=== PATIENT | male | born 1950 | race Caucasian/White ===

== ENCOUNTER 2017-01-11 07:07 | Day surgery (SDC) | payer MEDICARE ==
[2017-01-09 10:20] VITALS: BMI 23.3
[~2017-01-11 07:07] MED LIST: DEXAMETHASONE SOD PHOSPHATE 10 MG/ML 1 ML VIAL IV ONE; HEPARIN SODIUM,PORCINE 5,000 UNIT/ML 1 ML VIAL SQ ONE; MIDAZOLAM 2 MG/2 ML VIAL IV PRN; ONDANSETRON 4 MG/2 ML VIAL IVP ONE; SCOPOLAMINE 1.5MG/72HR PATCH TRANSDERM ONE; ceFAZolin 2 GM in SODIUM CHLORIDE 0.9% 100 ML IVPB ONE
[2017-01-11 07:32] VITALS: TEMP 98.1
[2017-01-11] MEDS: LACTATED RINGERS 1,000 ML IV SCH (07:57)
[2017-01-11] MEDS ORDERED: LIDOCAINE 1% 20 ML VIAL (10MG/ML) FOR IV START INTRADERMA ONE ×2 (07:58)
[2017-01-11] MEDS ORDERED: ROCURONIUM BROMIDE 10 MG/ML 10 ML VIAL IV ONE (08:07)
[2017-01-11] MEDS ORDERED: GLYCOPYRROLATE 0.2 MG/ML 2 ML VIAL ONE (08:07)
[2017-01-11] MEDS ORDERED: NEOSTIGMINE 1 MG/ML 10 ML VIAL ONE (08:07)
[2017-01-11] MEDS ORDERED: HYDROmorphone (PF) 1 MG/ML ONE (08:07)
[2017-01-11] MEDS ORDERED: ePHEDrine 50 MG/ML 1 ML AMP ONE (08:07)
[2017-01-11] MEDS ORDERED: KETOROLAC 30 MG/ML 1 ML VIAL ONE (08:07)
[2017-01-11] MEDS ORDERED: fentaNYL (PF) 50 MCG/ML 2 ML AMP ONE (08:07)
[2017-01-11] MEDS ORDERED: MIDAZOLAM 2 MG/2 ML VIAL ONE (08:07)
[2017-01-11] MEDS ORDERED: LIDOCAINE 1% INJ 10MG/ML (20 ML MDV) ONE (08:07)
[2017-01-11] MEDS ORDERED: PROPOFOL 10 MG/ML 20 ML VIAL IV ONE (08:07)
--- NOTE | 2017-01-11 08:07 | P.GSHP ---
History of Present Illness H&P Date: 01/11/17 Chief Complaint: Left inguinal hernia This is a 66-year-old male presents today for laparoscopic robotic-assisted repair of left inguinal hernia. Patient has had a left we will hernia for many years. The patient decided to have it repaired. He's had some pain and increased in size. 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81, WITH LEFT SIDED DEFECIT, SPINAL STENOSIS History of Any Multi-Drug Resistant Organisms: None Reported Past Surgical History: Back Surgery Additional Past Surgical History / Comment(s): BRAIN ANEURYSM REPAIR, Past Anesthesia/Blood Transfusion Reactions: No Reported Reaction Past Psychological History: No Psychological Hx Reported Smoking Status: Former smoker Past Alcohol Use History: None Reported Past Drug Use History: None Reported - Past Family History Mother Family Medical History: No Reported History Medications and Allergies Home Medications Medication Instructions Recorded Confirmed Type Pravastatin Sodium [Pravachol] 20 mg PO HS 09/07/16 01/09/17 History amLODIPine [Norvasc] 5 mg PO DAILY 09/07/16 01/09/17 History carBAMazepine [TEGretol] 200 mg PO BID 09/07/16 01/09/17 History Cyclobenzaprine [Flexeril] 10 mg PO QAM 01/09/17 01/09/17 History Benazepril [Lotensin] 10 mg PO DAILY 01/11/17 01/11/17 History Allergies Allergy/AdvReac Type Severity Reaction Status Date / Time No Known Allergies Allergy Verified 01/11/17 07:23 Surgical - Exam Vital Signs Temp Pulse Resp BP Pulse Ox 98.1 F 81 16 153/75 99 01/11/17 07:30 01/11/17 07:30 01/11/17 07:30 01/11/17 07:30 01/11/17 07:30 - General Left hemiplegia well developed, no distress - Eyes PERRL - ENT normal pinna - Neck no masses - Respiratory normal expansion - Cardiovascular Rhythm: regular - Abdomen Left reducible inguinal hernia Abdomen: soft Assessment and Plan Plan: Left angle hernia. We'll perform laparoscopic robotic-assisted repair of left inguinal hernia. Patient is aware of possible bilateral inguinal hernia repair
[2017-01-11] MEDS ORDERED: BUPIVACAIN-EPI 0.25%-1:200,000 30 ML VIAL SQ ONE ×2 (08:57)
--- NOTE | 2017-01-11 09:12 | P.OP ---
Date of Procedure: 01/11/17 Preoperative Diagnosis: Left inguinal hernia Postoperative Diagnosis: Left inguinal hernia Procedure(s) Performed: Robotic right inguinal hernia Anesthesia: GEORGI Surgeon: Neno Irby Estimated Blood Loss (ml): 5 Pathology: none sent Condition: stable Disposition: PACU Description of Procedure: The patient's placed on the operating table in the supine position. The patient received general anesthesia. The patient's abdomen was prepped and draped in usual sterile fashion. The skin was anesthetized 1% local Xylocaine at the incision sites. Using an 11 blade a skin incision was made at the umbilicus. The fascia was grasped with a Morris and then the peritoneal cavity was entered with the Veress needle. Position of the Veress needle was confirmed with a positive drop test. After adequate insufflation a 5 mm trocar was placed into the peritoneal cavity. The Laparoscope was placed the peritoneal cavity. And a robotic 8 mm trocar was placed in the right lateral position and then another 8 mm robotic trochars placed in the left lateral position. The original 5 mm trocar was exchanged for a 12 mm trocar. The patient was placed in reverse Trendelenburg and then the patient was docked to the robot. Next the peritoneum over top of the hernia was incised and then using blunt and sharp dissection and electrocautery the hernia sac was dissected free from the floor of the inguinal canal. The hernia sac was completely reduced into the peritoneal cavity. And then using the Pro annealer helper mesh the hernia was repaired. The peritoneum was then sutured with 20V lock suture. The patient was then undocked the robot. The needle was withdrawn from the peritoneal cavity. The umbilical trocar site was closed with 0 Ethibond suture. The skin was closed interrupted 3-0 Monocryl suture. Dermabond dressing was applied. Patient was sent to recovery in stable condition.
[2017-01-11] MEDS: HYDROmorphone 1 MG/ML 1 ML SYRINGE IVP PRN ×2 (09:44→10:03)
[2017-01-11 09:48] VITALS: RESP 18
[2017-01-11 11:23] VITALS: BP 130/61; PULSE 70
[2017-01-11] MEDS ORDERED: HYDROcodone/APAP 7.5-325MG 1 EACH TAB PO ONE (11:27)
[2017-01-11] MEDS ORDERED: LACTATED RINGERS 1,000 ML IV ONE (11:30)
== END 2017-01-11 13:05 | disposition home or self-care (01) ==
LOC: OR 07:07
PROVIDERS: ATTEND Surgery
DX: K40.90 Unilateral inguinal hernia, without obstruction or gangrene, not specified as recurrent (principal); I10 Essential (primary) hypertension; E78.5 Hyperlipidemia, unspecified; G81.14 Spastic hemiplegia affecting left nondominant side; Z79.899 Other long term (current) drug therapy; Z87.891 Personal history of nicotine dependence
CPT/HCPCS: 49650; C1781; J2250; J1644; J1100; J2710; J0690; J2405; J2001; J3010; J1885; J1170; J2704

== ENCOUNTER → 2018-06-20 | Outpatient (CLI) | payer MEDICARE ==
[2018-06-21 15:19] LABS: Egg Yolk IgE Class CLASS 0; Gluten IgE Class CLASS 0; Oat IgE Class CLASS 0; Yeast Bakers/Brew IgE <0.35 kU/L (<0.35)
[2018-06-21 15:20] LABS: Chicken IgE Class CLASS 0
[2018-06-21 15:21] LABS: Chocolate IgE Class CLASS 0; Latex IgE Class CLASS 0
[2018-06-21 15:22] LABS: Avocado Class CLASS 0; Banana IgE Class CLASS 0; Cow's Milk IgE Class CLASS 0; Egg White IgE <0.35 kU/L (<0.35); Hazelnut IgE <0.35 kU/L (<0.35); Hazelnut IgE Class CLASS 0; Kiwi IgE <0.35 kU/L (<0.35); Peanut IgE <0.35 kU/L (<0.35); Potato IgE <0.35 kU/L (<0.35); Potato IgE Class CLASS 0; Soybean IgE <0.35 kU/L (<0.35)
== END | disposition home or self-care (01) ==
LOC: LABWHC1 13:49
PROVIDERS: ATTEND Otolaryngology
DX: L50.0 Allergic urticaria (principal); J30.89 Other allergic rhinitis; B44.89 Other forms of aspergillosis
CPT/HCPCS: 36415; 86003

== ENCOUNTER 2019-07-16 10:25 | Inpatient (IN) | payer MEDICARE ==
[2019-07-16] MEDS ORDERED: MORPHINE SULFATE 4 MG/ML SYRINGE IV STA (12:13)
[2019-07-16] MEDS ORDERED: SODIUM CHLORIDE 0.9% 1,000 ML IV STA (12:13)
[2019-07-16] MEDS ORDERED: DEXAMETHASONE SOD PHOSPHATE 10 MG/ML 1 ML VIAL IV STA (12:14)
--- NOTE | 2019-07-16 12:41 | ED ---
Back Pain HPI - General Chief Complaint: Back Pain/Injury Stated Complaint: BACK PAIN Time Seen by Provider: 07/16/19 11:13 Source: patient, RN notes reviewed, old records reviewed Limitations: no limitations - History of Present Illness Initial Comments: This is a 66-year-old male the ER for evaluation. Patient coming with multiple nonspecific complaints. Patient's only medical history significant for aneurysm. Patient has pain throughout his body back pain. Pain leg pain. Shoulder pain right hip pain especially much with more pain with movement. Patient denies injuries. Symptoms are going on for a week he is having fevers and chills at night. Patient is activity level has diminished he's been sleeping much more. Patient has history of chronic back pain but this is much worse. Patient's been taking Motrin with no help MD Complaint: back pain, back injury, other (Shoulder pain and multiple joint pains, muscle pain) -: hour(s) Similar Symptoms Previously: Yes Place: home Radiation: none Severity: moderate Severity scale (1-10): 4 Quality: dull, aching, tingling Consistency: constant Improves With: none Worsens With: movement, walking Context: while lifting, turning/twisting Associated Symptoms: fever/chills Treatments Prior to Arrival: NSAIDS - Related Data Home Medications Medication Instructions Recorded Confirmed Pravastatin Sodium [Pravachol] 20 mg PO HS 09/07/16 07/16/19 amLODIPine [Norvasc] 5 mg PO DAILY 09/07/16 07/16/19 carBAMazepine [TEGretol] 200 mg PO BID 09/07/16 07/16/19 Benazepril [Lotensin] 10 mg PO DAILY 01/11/17 07/16/19 Ibuprofen [Motrin] 800 mg PO Q6H PRN 07/16/19 07/16/19 Allergies Allergy/AdvReac Type Severity Reaction Status Date / Time No Known Allergies Allergy Verified 07/16/19 11:16 Review of Systems ROS Statement: Those systems with pertinent positive or pertinent negative responses have been documented in the HPI. ROS Other: All systems not noted in ROS Statement are negative. 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81, WITH LEFT SIDED DEFECIT, SPINAL STENOSIS History of Any Multi-Drug Resistant Organisms: None Reported Past Surgical History: Back Surgery Additional Past Surgical History / Comment(s): BRAIN ANEURYSM REPAIR, Past Anesthesia/Blood Transfusion Reactions: No Reported Reaction Past Psychological History: No Psychological Hx Reported Smoking Status: Former smoker Past Alcohol Use History: None Reported Past Drug Use History: None Reported - Past Family History Mother Family Medical History: No Reported History General Exam Limitations: no limitations General appearance: alert, in no apparent distress Head exam: Present: atraumatic, normocephalic, normal inspection Eye exam: Present: normal appearance, EOMI. Absent: scleral icterus, conjunctival injection, periorbital swelling ENT exam: Present: normal exam, mucous membranes moist Neck exam: Present: normal inspection. Absent: tenderness, meningismus, lymph adenopathy Respiratory exam: Present: normal lung sounds bilaterally. Absent: respiratory distress, wheezes, rales, rhonchi, stridor Cardiovascular Exam: Present: regular rate, normal rhythm, normal heart sounds. Absent: systolic murmur, diastolic murmur, rubs, gallop, clicks GI/Abdominal exam: Present: soft, normal bowel sounds. Absent: distended, tenderness, guarding, rebound, rigid Extremities exam: Present: normal inspection, full ROM, normal capillary refill. Absent: tenderness, pedal edema, joint swelling, calf tenderness Back exam: Present: normal inspection Neurological exam: Present: alert, oriented X3, CN II-XII intact Psychiatric exam: Present: normal affect, normal mood Skin exam: Present: warm, dry, intact, normal color. Absent: rash Course Vital Signs 07/16/19 10:39 Temperature 97.9 F Pulse Rate 74 Respiratory 18 Rate Blood Pressure 118/52 O2 Sat by Pulse 100 Oximetry - Reevaluation(s) Reevaluation #1: 07/16/19 12:41 Medical records reviewed Reevaluation #2: 07/16/19 12:41 Pain is improved - Consultations Consultation #1: Spoke with Dr. Martinez regarding admission, he is agreeable Medical Decision Making - Medical Decision Making 66 male the ER with complaints of severe pain body pain body aches and pains chills. Patient has elevated white count and an X-ray pneumonia versus new Cancer/mass. Patient be admitted for pain control and treatment of underlying infection - Lab Data Result diagrams: 07/16/19 13:10 07/16/19 13:10 Lab Results 07/16/19 07/16/19 07/16/19 Range/Units 13:10 13:10 13:10 WBC 19.2 H (3.8-10.6) k/uL RBC 3.50 L (4.30-5.90) m/uL Hgb 11.7 L (13.0-17.5) gm/dL Hct 34.5 L (39.0-53.0) % MCV 98.6 (80.0-100.0) fL MCH 33.5 (25.0-35.0) pg MCHC 33.9 (31.0-37.0) g/dL RDW 13.1 (11.5-15.5) % Plt Count 244 (150-450) k/uL Neutrophils % 89 % Lymphocytes % 4 % Monocytes % 4 % Eosinophils % 0 % Basophils % 0 % Neutrophils # 17.1 H (1.3-7.7) k/uL Lymphocytes # 0.8 L (1.0-4.8) k/uL Monocytes # 0.8 (0-1.0) k/uL Eosinophils # 0.1 (0-0.7) k/uL Basophils # 0.1 (0-0.2) k/uL Sodium 138 (137-145) mmol/L Potassium 3.9 (3.5-5.1) mmol/L Chloride 100 (98-107) mmol/L Carbon Dioxide 25 (22-30) mmol/L Anion Gap 13 mmol/L BUN 28 H (9-20) mg/dL Creatinine 1.09 (0.66-1.25) mg/dL Est GFR (CKD-EPI)AfAm 80 (>60 ml/min/1.73 sqM) Est GFR (CKD-EPI)NonAf 69 (>60 ml/min/1.73 sqM) Glucose 123 H (74-99) mg/dL Calcium 8.7 (8.4-10.2) mg/dL Phosphorus 4.1 (2.5-4.5) mg/dL Magnesium 2.2 (1.6-2.3) mg/dL Total Bilirubin 0.5 (0.2-1.3) mg/dL AST 34 (17-59) U/L ALT 56 (21-72) U/L Alkaline Phosphatase 114 (38-126) U/L Creatine Kinase 135 (55-170) U/L Troponin I <0.012 (0.000-0.034) ng/mL Total Protein 7.4 (6.3-8.2) g/dL Albumin 3.7 (3.5-5.0) g/dL - EKG Data -: EKG Interpreted by Me (EKG shows sinus rhythm rate of 71, OR 160, QRS 82, QTc 406) Disposition Clinical Impression: Mechanical back pain, Strain of lumbar region, Myalgia, Leukocytosis, Lung mass, Pneumonia, community acquired Disposition: ADMITTED IP TO THIS HOSP Condition: Fair Is patient prescribed a controlled substance at d/c from ED?: No Referrals: Rohan Martinez DO [Primary Care Provider] - 1-2 days
--- NOTE | 2019-07-16 13:12 | CT ---
EXAMINATION TYPE: CT abdomen pelvis wo con DATE OF EXAM: 07/16/2019 COMPARISON: None HISTORY: 68-year-old male Lumbar-sacral pain CT DLP: 500.6 mGycm. Automated exposure control for dose reduction was used. TECHNIQUE: Contiguous axial scanning of the abdomen and pelvis without IV contrast. Coronal and sagit otoniel reconstructions performed. FINDINGS: Heart upper limits of normal in size without pericardial effusion. Coronary vessel calcifications are present. Patchy subpleural densities at both lower lungs probably atelectasis. No pleural effusion. Small hiatal hernia. Noncontrast appearance of the liver, adrenal glands, left kidney, and pancreas shows no gross abnorma lity. Punctate 2 mm nonobstructive right renal calculus. Calcified granuloma within the spleen. Lack of contrast, paucity of intra-abdominal fat, artifact from patient's left arm being down, and pr ominent metal hardware artifact from the patient's lumbar fusion hardware all limit the evaluation. No dilated small bowel, free fluid, or free air. Scattered moderate atherosclerotic calcifications abdominal aorta. Normal caliber appendix noted. There is moderate overall stool though sparing the redundant sigmoid colon. Bladder is distended. Prostate gland measures 5.9 cm. No abnormal fluid collection in the pelvis. Bones: Extensive osteopenia. Scattered synovial calcifications on both sides. Possible erosion extending into the lateral right il iac bone above the acetabulum with associated calcification, reference axial image 109 and coronal im age 50. L3-S1 posterior fusion. Fixed grade 1 anterolisthesis L4-L5. Mild superior end plate deformity of L1 is age indeterminate and should be correlated for focal pain at this level. Refer to sagittal image 53. Disc osteophyte complex at L1-L2 mildly narrows the spinal the canal. [facility] within the visualized lower thoracic spine. IMPRESSION: 1. Prior L3-S1 posterior fusion. There is mild superior endplate deformity of L1 which is age indete rminate. Correlate for any pain at this level. No retropulsion into the spinal canal. 2. Degenerative change in both hips with synovial calcifications. There is apparent erosive change w hich extends up to the lateral right iliac bone just above the acetabulum. Correlate for a history of gout in this patient. MRI can be considered. 3. Lack of contrast, paucity of intra-abdominal fat, artifact from the patient's left arm being down , and prominent metal hardware artifact from lumbar fusion all limit evaluation. 4. Moderate stool, prostatomegaly (5.9 cm wide), and punctate 2 mm nonobstructive right renal calcul us. Small hiatal hernia.
--- NOTE | 2019-07-16 13:19 | XR ---
EXAMINATION TYPE: XR chest 2V DATE OF EXAM: 07/16/2019 COMPARISON: NONE HISTORY: Weakness, history of stroke TECHNIQUE: Frontal and lateral views of the chest are obtained. FINDINGS: There is asymmetric increased attenuation superimposing the anterior first rib on the righ t as compared to left. No pneumothorax or pleural effusion. Patient is rotated. Heart size may be acc entuated by technique. Spondylosis noted in the visualized spine. IMPRESSION: Possible right upper lobe lung mass, follow-up recommended. Report relayed to Dr. Mg zimmerman telephonically at the time of interpretation at exam.
[2019-07-16 13:22] LABS: Basophils # (A) 0.1 k/uL (0-0.2); Basophils % (A) 0 %; Eosinophils # (A) 0.1 k/uL (0-0.7); Eosinophils % (A) 0 %; HCT 34.5 % (39.0-53.0); HGB 11.7 gm/dL (13.0-17.5); Lymphocytes # (A) 0.8 k/uL (1.0-4.8); Lymphocytes % (A) 4 %; MCH 33.5 pg (25.0-35.0); MCHC 33.9 g/dL (31.0-37.0); MCV 98.6 fL (80.0-100.0); Mean Platelet Volume 6.6; Monocytes # (A) 0.8 k/uL (0-1.0); Monocytes % (A) 4 %; Neutrophils # (A) 17.1 k/uL (1.3-7.7); Neutrophils % (A) 89 %; Platelet Count 244 k/uL (150-450); RDW 13.1 % (11.5-15.5); WBC 19.2 k/uL (3.8-10.6)
[2019-07-16 13:33] LABS: Albumin 3.7 g/dL (3.5-5.0); Calcium 8.7 mg/dL (8.4-10.2); Magnesium 2.2 mg/dL (1.6-2.3); Phosphorus 4.1 mg/dL (2.5-4.5); Potassium 3.9 mmol/L (3.5-5.1); Total Bilirubin 0.5 mg/dL (0.2-1.3); Total Protein 7.4 g/dL (6.3-8.2)
[2019-07-16] MEDS ORDERED: DIAZEPAM 5 MG/ML 2 ML INJ IVP STA (14:23)
[2019-07-16] MEDS ORDERED: KETOROLAC 30 MG/ML 1 ML VIAL IVP STA (14:23)
[2019-07-16] MEDS ORDERED: HYDROmorphone 1 MG/ML 1 ML SYRINGE IVP STA (14:23)
[2019-07-16] MEDS ORDERED: AZITHROMYCIN 500 MG in SODIUM CHLORIDE 0.9% 250 ML IVPB STA (14:23)
[2019-07-16] MEDS ORDERED: PNEUMONIA PROTOCOL UTILIZED 1 EACH MISC PO PRN (14:23)
[2019-07-16] MEDS ORDERED: IPRATROPIUM-ALBUTEROL 3 ML NEB INHALATION PRN (14:23)
[2019-07-16 14:30] LABS: Appearance,Urine Cloudy (Clear); Bilirubin,Urine Negative (Negative); Blood,Urine Trace (Negative); Cellular Casts,Urine 19 /lpf (0); Color,Urine Yellow; Glucose,Urine (UA) Negative (Negative); Granular Casts,Urine 1 /lpf (0); Hyaline Casts,Urine 7 /lpf (0-2); Ketones,Urine Negative (Negative); Leukocyte Esterase,Urine Trace (Negative); Mucus,Urine Rare /hpf; Nitrite,Urine Negative (Negative); PH, Urine 5.5 (5.0-8.0); Protein,Urine 1+ (Negative); RBC,Urine 1 /hpf (0-5); Squamous Epithelial Cell,Urine <1 /hpf (0-4); Urobilinogen,Urine <2.0 mg/dL (<2.0); WBC,Urine 13 /hpf (0-5)
[2019-07-16] MEDS: SODIUM CHLORIDE 0.9% 1,000 ML IV SCH ×2 (14:52→23:04)
[2019-07-16] MEDS: amLODIPine 5 MG TAB PO SCH (17:22)
[2019-07-16] MEDS: LISINOPRIL 10 MG TAB PO SCH (17:22)
[2019-07-16] MEDS: HYDROmorphone 1 MG/ML 1 ML SYRINGE IVP PRN ×2 (18:24→21:49)
[2019-07-16] MEDS: PRAVASTATIN SODIUM 20 MG TAB PO SCH (21:48)
[2019-07-16] MEDS: carBAMazepine 200 MG TAB PO SCH (21:48)
[2019-07-16] MEDS: DIAZEPAM 5 MG/ML 2 ML INJ IVP PRN (21:50)
[2019-07-17] MEDS: HYDROmorphone 1 MG/ML 1 ML SYRINGE IVP PRN ×2 (01:48→07:16)
[2019-07-17] MEDS: DIAZEPAM 5 MG/ML 2 ML INJ IVP PRN (05:34)
[2019-07-17] MEDS: LISINOPRIL 10 MG TAB PO SCH (07:17)
[2019-07-17] MEDS: carBAMazepine 200 MG TAB PO SCH ×2 (07:18→20:41)
[2019-07-17] MEDS: ENOXAPARIN 40 MG/0.4 ML SYRINGE SQ SCH (07:18)
[2019-07-17] MEDS: amLODIPine 5 MG TAB PO SCH (07:18)
--- NOTE | 2019-07-17 09:22 | P.CONS ---
History of Present Illness - Reason for Consult Consult date: 07/17/19 Positive blood culture - History of Present Illness This is a 68-year-old male who presented to the hospital with generalized body aches especially to the shoulder and back area along with back pain right hip pain increasing with activity. He has also had fevers and chills at night for the past week. Patient is normally very independent and active and this is a big change for him. related to the nurse that he has also had significant weight loss without any attempt and still seems to have a good appe tite. Patient is unable to provide significant history and has received Valium, Dilaudid and morphine which could be contributing to his mental status change. He is able to state that this is not my normal. Patient came into [facility] emergency center found to have low-grade fever 100.5 with tachycardia, leukocytosis 19.2, hemoglobin 11.7 and platelet count 244. He is BUN 28, creatinine 1.09, albumin 3.7, urinalysis cloudy, leukoesterase trace, WBC 13. Influenza testing negative. Blood cultures positive for gram-positive cocci in clusters. CAT scan of the abdomen and pelvis without contrast reveals prior L3 S1 posterior fusion. Mild endplate deformity of L1. Degenerative changes in both hips and synovial calcifications. Erosive change in the lateral right iliac bone above acetabulum possible history of gout. Limited abdominal evaluation due to lack of contrast. Moderate stool, 2 mm nonobstructive right renal calculus, small hiatal hernia. Chest x-ray reveals a possible right upper lobe lung mass. Patient is status post 1 L of IV fluid, Rocephin, azithromycin, Decadron, Valium Dilaudid and Toradol and morphine in the emergency center. A sputum is on collected. Blood culture is gram-positive cocci in clusters. 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 Past Drug Use History: None Reported - Past Family History Mother Family Medical History: No Reported History Medications and Allergies Home Medications Medication Instructions Recorded Confirmed Type Pravastatin Sodium [Pravachol] 20 mg PO HS 09/07/16 07/16/19 History amLODIPine [Norvasc] 5 mg PO DAILY 09/07/16 07/16/19 History carBAMazepine [TEGretol] 200 mg PO BID 09/07/16 07/16/19 History Benazepril [Lotensin] 10 mg PO DAILY 01/11/17 07/16/19 History Ibuprofen [Motrin] 800 mg PO Q6H PRN 07/16/19 07/16/19 History Allergies Allergy/AdvReac Type Severity Reaction Status Date / Time No Known Allergies Allergy Verified 07/16/19 11:16 Physical Exam Vitals: Vital Signs Temp Pulse Pulse Resp BP BP Pulse Ox 07/17/19 07:07 99 07/17/19 07:00 99.5 F 107 H 16 166/70 94 L 07/16/19 22:16 16 07/16/19 21:00 100.5 F H 105 H 20 160/72 07/16/19 16:05 98.0 F 75 16 132/65 99 07/16/19 15:30 80 16 138/75 98 07/16/19 10:39 97.9 F 74 18 118/52 100 Intake and Output 07/16/19 07/17/19 07/17/19 22:59 06:59 14:59 Intake Total 400 200 Balance 400 200 Intake: Oral 400 200 Other: # Voids 3 2 Gen: This is a thin cachectic appearing 68-year-old male. Patient is sitting up in bed and appears to be in no acute distress. No respiratory distress noted. HEENT: Head is atraumatic, normocephalic. Pupils equal, round. Sclerae is anicteric. Oral mucous membranes are extremely dry. Dentition is in fair order for age. NECK: Supple. No JVD. No lymphadenopathy. No thyromegaly. LUNGS: Clear to auscultation. No wheezes or rhonchi. No intercostal retractions. HEART: Regular rate and rhythm. No murmur. ABDOMEN: Flat Soft. Bowel sounds are present. No masses. No tenderness. EXTREMITIES: No pedal edema. No calf tenderness. Foot drop on the left. Dorsalis pedis +2 on the right, +1 on the left. Contracture of the left upper extremity. Straight leg raise negative bilaterally. NEUROLOGICAL: Patient is awake and oriented to person and place. Cranial nerves 2 through 12 are grossly intact. Patient is able to follow directions. He is unable to give reliable history. Results Results: Laboratory Results WBC 19.2 k/uL (3.8-10.6) H 07/16/19 13:10 RBC 3.50 m/uL (4.30-5.90) L 07/16/19 13:10 Hgb 11.7 gm/dL (13.0-17.5) L 07/16/19 13:10 Hct 34.5 % (39.0-53.0) L 07/16/19 13:10 MCV 98.6 fL (80.0-100.0) 07/16/19 13:10 MCH 33.5 pg (25.0-35.0) 07/16/19 13:10 MCHC 33.9 g/dL (31.0-37.0) 07/16/19 13:10 RDW 13.1 % (11.5-15.5) 07/16/19 13:10 Plt Count 244 k/uL (150-450) 07/16/19 13:10 Neutrophils % 89 % 07/16/19 13:10 Lymphocytes % 4 % 07/16/19 13:10 Monocytes % 4 % 07/16/19 13:10 Eosinophils % 0 % 07/16/19 13:10 Basophils % 0 % 07/16/19 13:10 Neutrophils # 17.1 k/uL (1.3-7.7) H 07/16/19 13:10 Lymphocytes # 0.8 k/uL (1.0-4.8) L 07/16/19 13:10 Monocytes # 0.8 k/uL (0-1.0) 07/16/19 13:10 Eosinophils # 0.1 k/uL (0-0.7) 07/16/19 13:10 Basophils # 0.1 k/uL (0-0.2) 07/16/19 13:10 Sodium 138 mmol/L (137-145) 07/16/19 13:10 Potassium 3.9 mmol/L (3.5-5.1) 07/16/19 13:10 Chloride 100 mmol/L (98-107) 07/16/19 13:10 Carbon Dioxide 25 mmol/L (22-30) 07/16/19 13:10 Anion Gap 13 mmol/L 07/16/19 13:10 BUN 28 mg/dL (9-20) H 07/16/19 13:10 Creatinine 1.09 mg/dL (0.66-1.25) 07/16/19 13:10 Est GFR (CKD-EPI)AfAm 80 (>60 ml/min/1.73 sqM) 07/16/19 13:10 Est GFR (CKD-EPI)NonAf 69 (>60 ml/min/1.73 sqM) 07/16/19 13:10 Glucose 123 mg/dL (74-99) H 07/16/19 13:10 Calcium 8.7 mg/dL (8.4-10.2) 07/16/19 13:10 Phosphorus 4.1 mg/dL (2.5-4.5) 07/16/19 13:10 Magnesium 2.2 mg/dL (1.6-2.3) 07/16/19 13:10 Total Bilirubin 0.5 mg/dL (0.2-1.3) 07/16/19 13:10 AST 34 U/L (17-59) 07/16/19 13:10 ALT 56 U/L (21-72) 07/16/19 13:10 Alkaline Phosphatase 114 U/L (38-126) 07/16/19 13:10 Creatine Kinase 135 U/L (55-170) 07/16/19 13:10 Troponin I <0.012 ng/mL (0.000-0.034) 07/16/19 13:10 Total Protein 7.4 g/dL (6.3-8.2) 07/16/19 13:10 Albumin 3.7 g/dL (3.5-5.0) 07/16/19 13:10 Urine Color Yellow 07/16/19 14:00 Urine Appearance Cloudy (Clear) 07/16/19 14:00 Urine pH 5.5 (5.0-8.0) 07/16/19 14:00 Ur Specific [place] 1.020 (1.001-1.035) 07/16/19 14:00 Urine Protein 1+ (Negative) H 07/16/19 14:00 Urine Glucose (UA) Negative (Negative) 07/16/19 14:00 Urine Ketones Negative (Negative) 07/16/19 14:00 Urine Blood Trace (Negative) H 07/16/19 14:00 Urine Nitrite Negative (Negative) 07/16/19 14:00 Urine Bilirubin Negative (Negative) 07/16/19 14:00 Urine Urobilinogen <2.0 mg/dL (<2.0) 07/16/19 14:00 Ur Leukocyte Esterase Trace (Negative) H 07/16/19 14:00 Urine RBC 1 /hpf (0-5) 07/16/19 14:00 Urine WBC 13 /hpf (0-5) H 07/16/19 14:00 Ur Squamous Epith Cells <1 /hpf (0-4) 07/16/19 14:00 Cellular Casts 19 /lpf (0) 07/16/19 14:00 Hyaline Casts 7 /lpf (0-2) H 07/16/19 14:00 Granular Casts 1 /lpf (0) 07/16/19 14:00 Urine Mucus Rare /hpf (None) H 07/16/19 14:00 Influenza Type A RNA Not Detected (Not Detectd) 07/16/19 14:12 Influenza Type B (PCR) Not Detected (Not Detectd) 07/16/19 14:12 CBC & Chem 7: 07/16/19 13:10 07/16/19 13:10 Labs: Abnormal Lab Results - Last 24 Hours (Table) 07/16/19 07/16/19 07/16/19 Range/Units 13:10 13:10 14:00 WBC 19.2 H (3.8-10.6) k/uL RBC 3.50 L (4.30-5.90) m/uL Hgb 11.7 L (13.0-17.5) gm/dL Hct 34.5 L (39.0-53.0) % Neutrophils # 17.1 H (1.3-7.7) k/uL Lymphocytes # 0.8 L (1.0-4.8) k/uL BUN 28 H (9-20) mg/dL Glucose 123 H (74-99) mg/dL Urine Protein 1+ H (Negative) Urine Blood Trace H (Negative) Ur Leukocyte Esterase Trace H (Negative) Urine WBC 13 H (0-5) /hpf Hyaline Casts 7 H (0-2) /lpf Urine Mucus Rare H (None) /hpf Microbiology - Last 24 Hours (Table) 07/16/19 15:14 Blood Culture Gram Stain - Preliminary Blood 07/16/19 15:14 Blood Culture - Final Blood Assessment and Plan Plan: This is a 68-year-old male who presented to the hospital with complaints of generalized body aches and pains most significant in the shoulder and back area. He is known to have chronic back problems with this is much more severe with lower extremity weakness. He does have history of a brain aneurysm in the 1980s with residual left arm contracture, left upper and lower weakness. Patient presents with signs of sepsis with tachycardia, fever, leukocytosis possibly related to pneumonia. There is concern of a lung mass found on chest x-ray. Patient will be started on Levaquin. Blood culture is showing gram- positive cocci in clusters which may be a contamination. Repeat blood cultures will be obtained. Toradol ordered for pain control and pulmonary consult added. Dietitian consult will be added for her severe protein calorie malnutrition. There is a speech evaluation in place for evaluation of aspiration. Continue supportive care. Further recommendations as patient progresses. The above dictated assessment and findings were discussed with Dr. Sanchez. The impression and plan of care have been directed as dictated. Gabriella Ty nurse practitioner acting as scribe for Dr. Sanchez.
[2019-07-17] MEDS: LEVOFLOXACIN 750 MG TAB PO SCH (10:31)
[2019-07-17] MEDS: KETOROLAC 30 MG/ML 1 ML VIAL IVP PRN ×2 (10:31→16:11)
[2019-07-17] MEDS: SODIUM CHLORIDE 0.9% 1,000 ML IV SCH ×2 (10:36→23:48)
--- NOTE | 2019-07-17 11:11 | P.HPIM ---
History of Present Illness H&P Date: 07/17/19 Chief Complaint: Increasing weakness, pain This is 68-year-old gentleman with history of hyperlipidemia, hypertension, brain aneurysm, CVA with residual left-sided deficits, former smoker presented to the ER with complaints of worsening right shoulder, back and right hip pain, increasing weakness over the last week, increased by activity, unrelieved with Motrin. Vague historian, obtaining information from chart, staff as well. Also patient is very hard of hearing, does not currently have his hearing aid. Nurse reports patient's baseline is normally very active. reported significant weight loss though patient has a good appetite .Denies cough, denies congestion. Abdominal/pelvis CT reporting calcified granuloma within the spleen, moderate stool, distended bladder, prostate gland measuring 5.9 cm, Extensive osteopenia, scattered synovial calcifications both sides with possible erosion extending into the lateral right iliac bone, mild superior endplate deformity of L1-H undetermined, nonobstructive renal calculus, small hiatal hernia. T-max 100.5, WBC 19.2. Blood cultures reporting gram-positive cocci in clusters. Sputum culture pending. Hemoglobin 11.7, platelets 244, BUN 28, creatinine 1.09- baseline 0.7. Albumin 3.7 .Influenza tested negative. UA cloudy, reporting hyaline cast of 7, WBC 13, trace leukocytes, 1+ protein. Chest x-ray reporting possible right upper lobe lung mass. EKG reporting normal sinus rhythm, troponins negative 1. Received IV fluids, IV antibiotics of Rocephin, azithromycin, Decadron. Throughout the night received Valium, Dilaudid, Toradol and morphine. Review of Systems Review of systems, Limited secondary to patient's current mental state, hard of hearing. ROS Statement: Those systems with pertinent positive or pertinent negative responses have been documented in the HPI. ROS Other: All systems not noted in ROS Statement are negative. 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, SPINAL STENOSIS History of Any Multi-Drug Resistant Organisms: None Reported Past Surgical History: Back Surgery Additional Past Surgical History / Comment(s): BRAIN ANEURYSM REPAIR, Past Anesthesia/Blood Transfusion Reactions: No Reported Reaction Past Psychological History: No Psychological Hx Reported Smoking Status: Former smoker Past Alcohol Use History: None Reported Additional Past Alcohol Use History / Comment(s): Unable to obtain details. Past Drug Use History: None Reported - Past Family History Mother Family Medical History: No Reported History Medications and Allergies Home Medications Medication Instructions Recorded Confirmed Type Pravastatin Sodium [Pravachol] 20 mg PO HS 09/07/16 07/16/19 History amLODIPine [Norvasc] 5 mg PO DAILY 09/07/16 07/16/19 History carBAMazepine [TEGretol] 200 mg PO BID 09/07/16 07/16/19 History Benazepril [Lotensin] 10 mg PO DAILY 01/11/17 07/16/19 History Ibuprofen [Motrin] 800 mg PO Q6H PRN 07/16/19 07/16/19 History Allergies Allergy/AdvReac Type Severity Reaction Status Date / Time No Known Allergies Allergy Verified 07/16/19 11:16 Physical Exam Vitals: Vital Signs Temp Pulse Pulse Resp BP BP Pulse Ox 07/17/19 07:07 99 07/17/19 07:00 99.5 F 107 H 16 166/70 94 L 07/16/19 22:16 16 07/16/19 21:00 100.5 F H 105 H 20 160/72 07/16/19 16:05 98.0 F 75 16 132/65 99 07/16/19 15:30 80 16 138/75 98 07/16/19 10:39 97.9 F 74 18 118/52 100 Intake and Output 07/16/19 07/17/19 07/17/19 22:59 06:59 14:59 Intake Total 400 200 Balance 400 200 Intake: Oral 400 200 Other: # Voids 3 2 PHYSICAL EXAM: VITAL SIGNS: As above GENERAL: Sitting up in bed, appears uncomfortable, states he's "stuck in a hole", somewhat sedated, speech mildly slurred HEENT: Conjunctivae normal. eyes normal. Oral mucosa more NECK: No JVD. No thyroid enlargement. No LNs CARDIOVASCULAR: S1, S2 regular. Tachycardic, No murmur RESPIRATION: Breath sounds diminished in the bases. No rhonchi or crackles. No bronchial breathing. ABDOMEN: Soft, nontender . No guarding. no masses palpable. No ascites, No hepatosplenomegaly.Bowel sounds heard. LEGS: No edema. no swelling PSYCHIATRY: Alert and oriented X3, mood and affect normal. NERVOUS SYSTEM: Cranial N 2-12 grossly normal. Left arm contracted, left leg rigid, left foot drop-prior CVA Skin: no lesions, no rash Joints: No active swelling. No inflammation. Lymphatic system. No LN neck axilla or groin. Microbiology 07/16/19 15:14 Blood Blood Culture Gram Stain - Preliminary 07/16/19 15:14 Blood Blood Culture - Final Results CBC & Chem 7: 07/16/19 13:10 07/16/19 13:10 Labs: Abnormal Lab Results - Last 24 Hours (Table) 07/16/19 07/16/19 07/16/19 Range/Units 13:10 13:10 14:00 WBC 19.2 H (3.8-10.6) k/uL RBC 3.50 L (4.30-5.90) m/uL Hgb 11.7 L (13.0-17.5) gm/dL Hct 34.5 L (39.0-53.0) % Neutrophils # 17.1 H (1.3-7.7) k/uL Lymphocytes # 0.8 L (1.0-4.8) k/uL BUN 28 H (9-20) mg/dL Glucose 123 H (74-99) mg/dL Urine Protein 1+ H (Negative) Urine Blood Trace H (Negative) Ur Leukocyte Esterase Trace H (Negative) Urine WBC 13 H (0-5) /hpf Hyaline Casts 7 H (0-2) /lpf Urine Mucus Rare H (None) /hpf Microbiology - Last 24 Hours (Table) 07/16/19 15:14 Blood Culture Gram Stain - Preliminary Blood 07/16/19 15:14 Blood Culture - Final Blood Thrombosis Risk Factor Assmnt - Choose All That Apply Each Risk Factor Represents 2 Points: Age 61-74 years, Patient confined to bed Thrombosis Risk Factor Assessment Total Risk Factor Score: 4 Thrombosis Risk Factor Assessment Level: Moderate Risk Assessment and Plan Assessment: -Sepsis secondary to Possible right upper lobe pneumonia, community-acquired, rule out aspiration, possible lung mass per chest x-ray. -Bacteremia, gram-positive cocci in clusters, possibly contaminant -Pain, chronic of right shoulder and lower back, history of back surgery -Moderate stool per CT -Prostatomegaly, 5.9 cm, PSA ordered -Degenerative changes bilateral hips with mild endplate deformity of L1, erosive change right iliac bone. 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 Antibiotics of Levaquin initiated for positive blood cultures, r epeat blood cultures ordered. Infectious disease consulted with recommendations noted and appreciated. Speech therapy consulted for swallow evaluation, ruling out aspiration. PT/OT, social work consulted for potential rehab. Please have family bring in hearing aid. PSA ordered secondary to enlarged prostate per CT, erosive iliac bone, hip pain with unintentional recent weight loss rule out mal ignancy. Pain management. Pulmonary consulted. Dietary consulted prognosis guarded given multiple complex medical issues. The impression and plan of care has been dictated as directed. : I performed a history and examination of this patient, discussed the same with the dictator. I agree with the dictator's note ,documented as a scribe. Any additional findings or plans will be noted. Time taken: 55 minutes
[2019-07-17 11:32] VITALS: BMI 19.8
--- NOTE | 2019-07-17 12:35 | XR ---
EXAMINATION TYPE: XR chest 2V DATE OF EXAM: 07/17/2019 COMPARISON: 07/16/2019 TECHNIQUE: PA and lateral views submitted. HISTORY: Pneumonia FINDINGS: The lungs are clear and there is no pneumothorax, pleural effusion, or focal pneumonia. Heart size stable. Atherosclerotic change aorta. Asymmetry in the right apex again noted. Arthropathy of the rosina ulders. IMPRESSION: 1. No definite acute pneumonia. There remains asymmetry in the medial margin of the right upper lobe which could be related to the anterior margin of the first rib rather than representing neoplasm. Eit her CT of the chest or apical lordotic view of the chest could be obtained for further evaluation..
--- NOTE | 2019-07-17 12:36 | XR ---
EXAMINATION TYPE: XR shoulder complete RT DATE OF EXAM: 07/17/2019 COMPARISON: NONE HISTORY: Pain TECHNIQUE: Three views are submitted. FINDINGS: The osseous structures are intact. There is no acute fracture or dislocation. Hypertrophic changes i nvolving the AC joint noted with spurring and soft tissue ossification. Spurring along the lower inne r margin of the humeral head.. IMPRESSION: 1. Arthropathy particularly of the AC joint correlate for rotator cuff disease.
--- NOTE | 2019-07-17 12:38 | CT ---
EXAMINATION TYPE: CT brain wo con DATE OF EXAM: 07/17/2019 COMPARISON: Prior CT 09/07/2016 HISTORY: mental status changes CT DLP: 855.2 mGycm Automated exposure control for dose reduction was used. Helical imaging through the brain. FINDINGS: Findings are similar. There is encephalomalacia within the right cerebral involving the temporal lobe , right frontoparietal region as on prior. Postop change noted to the right calvarium, as on previous . There is no hemorrhage or hydrocephalus. Artifact due to postop material present along the clivus r egion as on prior. IMPRESSION: STABLE EXAM. No acute abnormality.
[2019-07-17] MEDS ORDERED: AZITHROMYCIN 500 MG TAB PO SCH (14:24)
[2019-07-17 15:30] LABS: INR 1.2 (<1.2); Prothrombin Time 12.2 sec (9.0-12.0)
[2019-07-17 15:52] LABS: Basophils # (A) 0.3 k/uL (0-0.2); Basophils % (A) 2 %; Eosinophils # (A) 0.1 k/uL (0-0.7); Eosinophils % (A) 1 %; HCT 29.5 % (39.0-53.0); Lymphocytes # (A) 0.3 k/uL (1.0-4.8); Lymphocytes % (A) 2 %; MCH 32.2 pg (25.0-35.0); MCHC 30.6 g/dL (31.0-37.0); Macrocytosis Slight; Mean Platelet Volume 8.7; Monocytes # (A) 0.8 k/uL (0-1.0); Monocytes % (A) 5 %; Neutrophils # (A) 14.1 k/uL (1.3-7.7); Neutrophils % (A) 90 %; Platelet Count 176 k/uL (150-450); RBC 2.81 m/uL (4.30-5.90); RDW 13.5 % (11.5-15.5); WBC 15.7 k/uL (3.8-10.6)
[2019-07-17 15:59] LABS: Calcium 7.8 mg/dL (8.4-10.2); Potassium 3.5 mmol/L (3.5-5.1)
[2019-07-17] MEDS: PRAVASTATIN SODIUM 20 MG TAB PO SCH (20:41)
--- NOTE | 2019-07-17 21:54 | P.CON ---
Consult Note - . Consult date: 07/17/19 Assessment/Plan:: This is a 68-year-old male who presented to the hospital with generalized body aches especially to the shoulder and back area along with back pain right hip pain increasing with activity. He has also had fevers and chills at night for the past week. Patient is normally very independent and active and this is a big change for him. related to the nurse that he has also had significant weight loss without any attempt and still seems to have a good appetite. Patient is unable to provide significant history and has received Valium, Dilaudid and morphine which could be contributing to his mental status change. He is able to state that this is not my normal. Patient came into [facility] emergency center found to have low-grade fever 100.5 with tachycardia, leukocytosis 19.2, hemoglobin 11.7 and platelet count 244. He is BUN 28, creatinine 1.09, albumin 3.7, urinalysis cloudy, leukoesterase trace, WBC 13. Influenza testing negative. Blood cultures positive for gram-positive cocci in clusters. CAT scan of the abdomen and pelvis without contrast reveals prior L3 S1 posterior fusion. Mild endplate deformity of L1. Degenerative changes in both hips and synovial calcifications. Erosive change in the lateral right iliac bone above acetabulum possible history of gout. Limited abdominal evaluation due to lack of contrast. Moderate stool, 2 mm nonobstructive right renal calculus, small hiatal hernia. Chest x-ray reveals a possible right upper lobe mauricio ng mass. Patient is status post 1 L of IV fluid, Rocephin, azithromycin, Decadron, Valium Dilaudid and Toradol and morphine in the emergency center. A sputum is on collected. Blood culture is gram-positive cocci in clusters. Please see the consult note as dictated by nurse practitioner Irene Gabriella Ty. 68-year-old male who is arousable, he was a very poor historian and does not do well following any commands. He complaints that he feels fidgety and has profound weakness. The patient's is present and relates that normally he is modestly functional he does have many medical troubles about a few weeks ago he was out in the yard cutting wood with his chainsaw. He rapidly became weak and difficulties in ambulation and eventually his arms became so weak that he can't raise them that she also had him brought to Hospital by EMS. He was having significant severe pain related to his severe back troubles and he received multiple medications and became very obtunded. That is starting to improve however there was evidence of the gram-positive cocci bacteremia. Consult was was requested. The patient does not have significant localizing symptoms except for his chronic back pain, does not appear to have actually worsened as of late. At this time repeat blood cultures are requested, the source of the gram-positive cocci likely staph aureus bacteremia is not clear. There has been some abnormality of the chest x-ray but follow-ups does not appear to be mass may be related to some rib abnormalities shoulder x-ray without fracture or dislocation. The patient does have a markedly enlarged prostate and consequently infection of the urinary system will be a likely etiology at this time. With evidence of the staph aureus in the blood Ancef was added to the levofloxacin that was being utilized. Follow up cultures be monitored once is evidence of clearance of bacteremia IV access and required and I will have to determine best possible placement at discharge. Please see the consult note as dictated by nurse practitioner Mrs. Gabriella Ty.
[2019-07-18] MEDS: KETOROLAC 30 MG/ML 1 ML VIAL IVP PRN ×3 (00:11→22:03)
[2019-07-18] MEDS: SODIUM CHLORIDE 0.9% 1,000 ML IV SCH ×2 (08:17→18:03)
[2019-07-18] MEDS ORDERED: RX INFO: IV CONTRAST WAS GIVEN 1 EACH MISC MISCELLANE PRN (08:23)
[2019-07-18] MEDS ORDERED: BISACODYL 5 MG TABLET.DR PO ONE (08:31)
[2019-07-18] MEDS: LISINOPRIL 10 MG TAB PO SCH (08:39)
[2019-07-18] MEDS: carBAMazepine 200 MG TAB PO SCH ×2 (08:39→21:59)
[2019-07-18] MEDS: BISACODYL 5 MG TABLET.DR PO SCH (08:39)
[2019-07-18] MEDS: ACETAMINOPHEN TAB 325 MG TAB PO PRN (08:39)
[2019-07-18] MEDS: amLODIPine 5 MG TAB PO SCH (08:39)
[2019-07-18] MEDS: LEVOFLOXACIN 750 MG TAB PO SCH (08:39)
[2019-07-18] MEDS: ENOXAPARIN 40 MG/0.4 ML SYRINGE SQ SCH (08:40)
[2019-07-18 08:59] LABS: HCT 34.2 % (39.0-53.0); HGB 10.5 gm/dL (13.0-17.5); Hypochromasia Moderate; MCHC 30.6 g/dL (31.0-37.0); MCV 107.7 fL (80.0-100.0); Macrocytosis Moderate; Mean Platelet Volume 7.4; Platelet Count 204 k/uL (150-450); RBC 3.18 m/uL (4.30-5.90); RDW 13.4 % (11.5-15.5); WBC 13.9 k/uL (3.8-10.6)
[2019-07-18 09:07] LABS: Calcium 8.1 mg/dL (8.4-10.2); Potassium 3.5 mmol/L (3.5-5.1)
--- NOTE | 2019-07-18 11:21 | P.PN ---
Subjective Progress Note Date: 07/18/19 This is 68-year-old gentleman with history of hyperlipidemia, hypertension, brain aneurysm, CVA with residual left-sided deficits, former smoker presented to the ER with complaints of worsening right shoulder, back and right hip pain, increasing weakness over the last week, increased by activity, unrelieved with Motrin. Vague historian, obtaining information from chart, staff as well. Also patient is very hard of hearing, does not currently have his hearing aid. Nurse reports patient's baseline is normally very active. reported significant weight loss though patient has a good appetite .Denies cough, denies congestion. Abdominal/pelvis CT reporting calcified granuloma within the spleen, moderate stool, distended bladder, prostate gland measuring 5.9 cm, Extensive osteopenia, scattered synovial calcifications both sides with possible erosion extending into the lateral right iliac bone, mild superior endplate deformity of L1-H undetermined, nonobstructive renal calculus, small hiatal hernia. T-max 100.5, WBC 19.2. Blood cultures reporting gram-positive cocci in clusters. Sputum c ulture pending. Hemoglobin 11.7, platelets 244, BUN 28, creatinine 1.09-baseline 0.7. Albumin 3.7 .Influenza tested negative. UA cloudy, reporting hyaline cast of 7, WBC 13, trace leukocytes, 1+ protein. Chest x-ray reporting possible right upper lobe lung mass. EKG reporting normal sinus rhythm, troponins negative 1. Received IV fluids, IV antibiotics of Rocephin, azithromycin, Decadron. Throughout the night received Valium, Dilaudid, Toradol and morphine. 07/18/2019 yesterday patient had received Valium, Dilaudid, morphine contributed to his metabolic encephalopathy. Morphine, Valium, Dilaudid discontinued, placed on Toradol. Generalized pain, improving with Toradol. Yesterday right- sided weakness. Brain CT performed reporting no acute abnormality. More alert this morning, presenting with some right upper and lower extremity weakness. Neurology consulted. Right shoulder x-ray reporting no acute fracture or dislocation hypertrophic changes/arthropathy particularly of the before meals joint, possibly rotator cuff disease. Follow-up Chest x-ray reported no definite acute pneumonia, asymmetry in the medial margin of the right upper lobe. CT ordered. Evaluated by pulmonary, scheduled for bronchoscopy with biopsy tomorrow. T-max 100.5, WBC trending down to 13.9, maintained on cefazolin, Levaquin as per ID. Multiple preliminary blood cultures reporting gram-positive cocci in groups/clusters. Vital signs stable, maintaining O2 sats in the high 90s on room air. Objective - Vital Signs Vital signs: Vital Signs Temp 100.5 F H 07/18/19 05:10 Pulse 83 07/18/19 05:10 Resp 18 07/18/19 08:17 BP 155/66 07/18/19 05:10 Pulse Ox 96 07/18/19 05:10 Intake & Output 07/17/19 07/18/19 07/18/19 18:59 06:59 18:59 Intake Total 360 Output Total 1650 200 Balance -1650 160 Weight 58.967 kg Intake: Oral 360 Output: Urine 1650 200 Uretheral (Ye) 525 Other: Voiding Method Indwelling Catheter Indwelling Catheter Indwelling Catheter # Voids 0 0 - Exam VITAL SIGNS: As above GENERAL: Sitting up in bed, appears uncomfortable, states he's "stuck in a hole", somewhat sedated, speech mildly slurred HEENT: Conjunctivae normal. eyes normal. Oral mucosa more NECK: No JVD. No thyroid enlargement. No LNs CARDIOVASCULAR: S1, S2 regular. Tachycardic, No murmur RESPIRATION: Breath sounds diminished in the bases. No rhonchi or crackles. No bronchial breathing. ABDOMEN: Soft, nontender . No guarding. no masses palpable. No ascites, No hepatosplenomegaly.Bowel sounds heard. LEGS: No edema. no swelling PSYCHIATRY: Alert and oriented X3, mood and affect normal. NERVOUS SYSTEM: Cranial N 2-12 grossly normal. Left arm contracted, left leg rigid, left foot drop-prior CVA. Decreased motor strength right arm, right leg. Skin: no lesions, no rash Joints: No active swelling. No inflammation. Lymphatic system. No LN neck axilla or groin. Microbiology 07/17/19 09:27 Blood Blood Culture Gram Stain - Preliminary 07/17/19 09:27 Blood Blood Culture - Final 07/17/19 09:17 Blood Blood Culture Gram Stain - Preliminary 07/17/19 09:17 Blood Blood Culture - Final 07/16/19 15:14 Blood Blood Culture Gram Stain - Preliminary 07/16/19 15:14 Blood Blood Culture - Preliminary Presumptive Staph aureus 07/16/19 15:14 Blood Blood Culture - Final - Labs CBC & Chem 7: 07/18/19 08:32 07/18/19 08:32 Labs: Abnormal Lab Results - Last 24 Hours (Table) 07/17/19 07/17/19 07/17/19 Range/Units 09:17 09:27 09:27 WBC 15.7 H (3.8-10.6) k/uL RBC 2.81 L (4.30-5.90) m/uL Hgb 9.0 L D (13.0-17.5) gm/dL Hct 29.5 L (39.0-53.0) % MCV 105.0 H D (80.0-100.0) fL MCHC 30.6 L (31.0-37.0) g/dL Neutrophils # 14.1 H (1.3-7.7) k/uL Lymphocytes # 0.3 L (1.0-4.8) k/uL Basophils # 0.3 H (0-0.2) k/uL PT 12.2 H (9.0-12.0) sec INR 1.2 H (<1.2) Sodium 136 L (137-145) mmol/L BUN 31 H (9-20) mg/dL Glucose 128 H (74-99) mg/dL Calcium 7.8 L (8.4-10.2) mg/dL Microbiology - Last 24 Hours (Table) 07/17/19 09:27 Blood Culture Gram Stain - Preliminary Blood 07/17/19 09:27 Blood Culture - Final Blood 07/17/19 09:17 Blood Culture Gram Stain - Preliminary Blood 07/17/19 09:17 Blood Culture - Final Blood 07/16/19 15:14 Blood Culture Gram Stain - Preliminary Blood Blood Culture - Preliminary Presumptive Staph aureus 07/16/19 15:14 Blood Culture - Final Blood Assessment and Plan Assessment: -Sepsis secondary to Possible right upper lobe pneumonia, community-acquired, rule out aspiration, possible lung mass per chest x-ray. -Bacteremia, gram-positive cocci in clusters, possibly contaminant, possibly acute UTI -Pain, chronic of right shoulder and lower back, history of back surgery -Moderate stool per CT -Prostatomegaly, 5.9 cm, PSA ordered -Degenerative changes bilateral hips with mild endplate deformity of L1, erosive change right iliac bone. 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 Neurology consulted.Chest CT pending.Bronchoscopy with BX tomorrow as per pulmonary.Antibiotics as per Infectious disease. Follow cultures closely .Speech therapy evaluation pending, ruling out aspiration. PSA pending (ordered secondary to enlarged prostate per CT, erosive iliac bone, hip pain with unintentional recent weight loss rule out malignancy.) Pain management. Follow closely with pulmonary. Prognosis guarded given multiple complex medical issues. The impression and plan of care has been dictated as directed. : I performed a history and examination of this patient, discussed the same with the dictator. I agree with the dictator's note ,documented as a scribe. Any additional findings or plans will be noted. Time taken: 55 minutes
--- NOTE | 2019-07-18 11:50 | CONS ---
CONSULTATION PULMONARY/CRITICAL CARE CONSULTATION: DATE OF CONSULTATION: July 18, 2019 This is a 68-year-old male who presents to the emergency room for evaluation of back pain. He comes into the emergency room with multiple nonspecific complaints. He apparently has a history of a previous aneurysm. The patient states his pain is throughout his back and entire body as well as leg pain. He has got right hip pain, shoulder pain, and the pain is worse when he moves about. He denies any trauma or injury. He has been having this for about a week. In addition, he describes fever and chills. His activity level has been diminished. He is sleeping much more. Anyway, he gets admitted to the hospital with the possibility of a diagnosis of pneumonia. In addition, they were concerned about a possible mass in the right upper lobe. The patient himself cannot really give a good history. I get most of the history from the medical records, from the emergency room doctor and from the H and P from the primary service. Not much to add compared to what I have said already. HOME MEDICATIONS: His home medications include pravastatin, amlodipine, Tegretol, Lotensin, and Motrin. ALLERGIES: Allergies are denied. MEDICAL HISTORY: His medical history includes hyperlipidemia and hypertension. He apparently has a history of a brain aneurysm back in 1981 and since that time, has had apparent left- sided weakness as well as a history of spinal stenosis. He did apparently have brain aneurysm repair. SURGICAL HISTORY: Surgical history includes back surgery. SOCIAL HISTORY: Social history is positive for previous tobacco use. No alcohol use or illicit drug use. FAMILY HISTORY: Family history is unremarkable. His mother apparently had no major medical problems. Does not know about his father. REVIEW OF SYSTEMS: Difficult to obtain. He is not a particular good historian. CONSTITUTIONAL: Weakness. NEUROLOGIC: Negative. HEENT: Negative. CARDIOVASCULAR: Negative. PULMONARY: Negative. GI: Negative. : Negative. RHEUMATOLOGIC: diffuse pain. IMMUNOLOGIC: Negative. ENDOCRINOLOGIC: Negative. DERMATOLOGIC: Negative. PHYSICAL EXAMINATION: VITAL SIGNS: Current vital signs are reviewed. His temperature is currently 98.3, his T- max in the last 24 hours is 100.5, heart rate 83, respiratory rate 18, blood pressure 155/66, mean 95 and room air saturations are 96%. GENERAL: He appears in no acute distress. He is rather lethargic and sleepy though. HEENT: Examination is grossly unremarkable. Mucous membranes are moist. NECK: Supple. Full range of motion. No adenopathy. He has a prominent area on palpation over the proximal clavicle area. CARDIOVASCULAR: Examination reveals regular rhythm and rate. Heart sounds are distant. Heart rate 83. S1, S2 normal. LUNGS: Reveal mostly clear breath sounds. A few scattered rhonchi. No wheezes or crackles. He is not very cooperative and does not take deep breaths. ABDOMEN: Soft. Bowel sounds are heard. EXTREMITIES: Are intact. No cyanosis, clubbing, or edema. SKIN: Without rash. NEUROLOGIC: Examination reveals the patient is quite lethargic and sleepy but he does arouse. He does appear to have weakness on the left side of his body including the left upper extremity greater than left lower extremity. LABS: Labs are reviewed. White count 13.9, hemoglobin 10.5, hematocrit 34.2, platelet count 204,000. PT, INR were 12.2 and 1.2 respectively. Sodium, potassium, chloride, CO2 all normal. Anion gap 11. BUN and creatinine were 31 and 1.01. Urine shows 1+ protein, trace blood, trace leukocyte esterase, 13 WBCs. Influenza studies were negative. A chest x-ray seems to suggest a possible infiltrate or mass in the right upper lobe. On subsequent chest x-ray, the radiologist questions whether or not this could be a technical thing. There was no definite acute pneumonia seen on chest x-ray. There may or may not be a mass in the right upper lobe. A CT scan of the chest is pending. MEDICATIONS: Medications are reviewed. The patient is currently on Levaquin as an antibiotic. Probably does not need it. Also on Ancef as per Dr. Sanchez. He is on [facility]. ASSESSMENT: 1. Possible mass right upper lobe. 2. History of previous brain aneurysm with left-sided weakness. 3. Status post aneurysm repair. 4. History of hypertension. 5. History of hyperlipidemia. 6. Previous history of back surgery. PLAN: We are awaiting the CT scan of the chest with contrast. The brain CT that was done shows a stable exam without abnormality. There is encephalomalacia within the right cerebrum involving temporal lobe, as well as the frontoparietal region. There are some postop changes to the right calvarium. Nothing acute is noted. Blood cultures are apparently positive for presumptive Staph aureus. We will continue to follow. Prognosis is guarded. If a mass is seen in the right upper lobe, we would recommend bronchoscopy. N.B. No mass on CT scan. MMODL / IJN: [id number] / MTDD
--- NOTE | 2019-07-18 12:01 | CT ---
EXAMINATION TYPE: CT chest w con DATE OF EXAM: 07/18/2019 COMPARISON: 07/17/2019 HISTORY: 68-year-old male chest mass TECHNIQUE: Contiguous axial scanning of the chest after the administration of 100 mL of Isovue 300. Coronal/sagittal reconstructions performed. CT DLP: 374.5mGycm. Automatic exposure control utilized for a dose reduction. FINDINGS: Heart upper limits of normal in size without pericardial effusion. Extensive coronary vessel calcific ations are present. Aorta normal caliber with a conventional vessel branching anatomy. Mild atherosclerotic arch calcific ations. Mildly enlarged precarinal lymph node of 1.1 cm and left tracheobronchial angle lymph node at 1.2 cm. No additional thoracic lymphadenopathy by CT size criteria. Mild emphysematous change. Trace biapical pleural parenchymal scarring. Some scattered mild patchy gr oundglass particularly along the dependent portion of the lungs likely relating to atelectasis. Focal elongated opacity measuring approximately 2.3 x 1.0 cm anterior right mid to lower lung, axial image 35 and coronal image 15, suspected subsegmental atelectasis. 9 mm subpleural pulmonary nodule peripheral right lower lobe, axial image 35. There are trace effusions and prominent dependent opacity just adjacent, left greater than right. Visualized upper abdomen shows moderate to large stool. Bones: Moderate anterior endplate spondylosis mid to lower thoracic spine. Scattered endplate Schmorl 's nodes lower thoracic spine and thoracolumbar junction. IMPRESSION: 1. Borderline heart size, trace pleural effusions, and minimal scattered patchy groundglass. Correlat e to exclude mild fluid overload state with pulmonary vascular congestion. 2. CAD and COPD with mild emphysema. 3. Prominent dependent opacities, left greater than right, likely representing atelectasis. Correlate with patient's symptoms to exclude underlying pneumonia. 4. A couple mildly enlarged mediastinal lymph nodes measuring 1.2 and 1.1 cm. Possibly reactive/post inflammatory. Three-month follow-up CT recommended to reassess. 5. 9 mm subpleural pulmonary nodule right lower lobe should also be reassessed at follow-up. 6. Focal elongated 2.2 x 1.0 cm opacity right midlung, less suspected focal area of subsegmental atel ectasis. This can also be reassessed at follow-up. 7. CAD.
--- NOTE | 2019-07-18 20:47 | P.CNNES ---
History of Present Illness Consult date: 07/18/19 Reason for Consult: New weakness and altered mental status History of Present Illness: HISTORY OF PRESENT ILLNESS: Thank you for allowing me to evaluate Mr. Johnnie Morales. Mr. Morales is a 68-year-old man with past medical history of hyperlipidemia, hypertension, aneurysm with left-sided deficit, spinal stenosis, presented to [facility] on 07/16/2019 for nonspecific multiple complaints including pain throughout his back, entire body, his right hip, shoulders, consulted neurology for altered mental status and knee weakness. During this admission, patient received multiple pain medications including Dilaudid, morphine and Valium, which most likely contributed to his metabolic encephalopathy. Patient's pain has been improving with Toradol. He had right-sided weakness yesterday. Difficult to get baseline exam as patient with altered mental status, but patient states that he is definitely having worsening weakness in his RUE with which he had been able to feed himself. Denies any headache, nausea, or vomiting. He states that his pain is better but unable to really vocalize his problems at this time. PAST MEDICAL HISTORY: hyperlipidemia, hypertension, aneurysm with left-sided deficit, spinal stenosis PAST SURGICAL HISTORY: Back surgery, brain aneurysm repair HOME MEDICATIONS: Carbamazepine, amlodipine, pravastatin, benazepril, ibuprofen ALLERGIES: NKDA SOCIAL HISTORY: Former smoker. Denies alcohol or drug abuse history. PHYSICAL EXAMINATION: VITAL SIGNS: T 97.4 HR 64 RR 22 BP 147/75 O2 sat 99% on RA GEN.: NAD, awake HEENT: NCAT, sclera without icterus NECK: Supple SKIN AND EXTREMITIES: Warm to touch, no edema NEURO: MENTAL STATUS: Patient alert and oriented to self and place. Unable to say year or name the current president. Mumbles, unable to name and repeat, following some commands. No right and left disorientation, neglect. CRANIAL NERVES II THROUGH XII: II: Pupils are equal and reactive to light symmetrically. No afferent pupillary defect. Blinks to threat bilaterally III, IV, : No ptosis. Extraocular movements full. No nystagmus. VII. No clear facial asymmetry. XII: Tongue midline without fasciculation or atrophy. MOTOR: Decreased bulk in LUE/LLE. Increased tone in LUE/LLE and contractures of L elbow/wrist/fingers and L ankle. With some movement of LLE and RLE (questionable if the movement is spontaneous or a spasm). Patient is able to move RUE against gravity but minimal. SENSORY: Grimaces to pain in all 4 extremities REFLEXES: 1+ throughout. R toes are downgoing. L toes are mute. COORDINATION/GAIT: Deferred due to difficulty following commands/bed-ridden DIAGNOSTIC TESTING: LABORATORY: WBC 13.9 (down from 19.2-> 15.7) hemoglobin 10.5 platelet 204 PT 12.2 INR 1.2 sodium 140 potassium 3.5 chloride 107 I can't 22 BUN 31 creatinine 1.01 glucose 122 AST 34 ALT 56 alk phos 114 troponin <0.012 urinalysis trace leuk esterase influenza A/B not detected IMAGING: CT head without contrast 07/17/2019: Encephalomalacia within the right cerebral involving the temporal lobe, right frontal parietal region as on prior. Postop changes noted to the right calv arium. No acute intracranial finding. ASSESSMENT: Mr. Morales is a 68-year-old man with past medical history of hyperlipidemia, hypertension, aneurysm with left-sided deficit, spinal stenosis, presented to [facility] on 07/16/2019 for nonspecific multiple complaints including pain throughout his back, entire body, his right hip, shoulders, consulted neurology for altered mental status and knee weakness. On admission, patient was found with leukocytosis of 19.2, now trending down to 13.9, found with bacteremia. CXR also showing a possible lung mass. Patient with baseline L-sided weakness/contractures from his previous R-sided aneurysm/stroke, and patient with risk factors for stroke such as HLD, HTN, and being mostly bed-ridden. RECOMMENDATIONS: 1. MRI brain w/o contrast 2. TTE 3. Will pursue further stroke work-up if MRI brain with acute ischemic stroke 4. Routine EEG 5. Labs: TSH, Vitamin B12, RPR 6. Neurology will continue to follow 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, SPINAL STENOSIS History of Any Multi-Drug Resistant Organisms: None Reported Past Surgical History: Back Surgery Additional Past Surgical History / Comment(s): BRAIN ANEURYSM REPAIR, Past Anesthesia/Blood Transfusion Reactions: No Reported Reaction Past Psychological History: No Psychological Hx Reported Smoking Status: Former smoker Past Alcohol Use History: None Reported Additional Past Alcohol Use History / Comment(s): Unable to obtain details. Past Drug Use History: None Reported - Past Family History Mother Family Medical History: No Reported History Medications and Allergies Home Medications Medication Instructions Recorded Confirmed Type Pravastatin Sodium [Pravachol] 20 mg PO HS 09/07/16 07/16/19 History amLODIPine [Norvasc] 5 mg PO DAILY 09/07/16 07/16/19 History carBAMazepine [TEGretol] 200 mg PO BID 09/07/16 07/16/19 History Benazepril [Lotensin] 10 mg PO DAILY 01/11/17 07/16/19 History Ibuprofen [Motrin] 800 mg PO Q6H PRN 07/16/19 07/16/19 History Allergies Allergy/AdvReac Type Severity Reaction Status Date / Time No Known Allergies Allergy Verified 07/16/19 11:16 Physical Examination - Vital Signs Vital Signs: Vital Signs Temp Pulse Resp BP Pulse Ox 07/18/19 16:50 64 22 07/18/19 14:45 97.4 F L 64 22 147/75 99 07/18/19 09:58 98.0 F 07/18/19 08:17 18 07/18/19 05:10 100.5 F H 83 28 H 155/66 96 07/17/19 21:00 97.4 F L 92 18 153/62 97 Intake and Output 07/18/19 07/18/19 07/18/19 06:59 14:59 22:59 Intake Total 360 50 Output Total 200 400 400 Balance 160 -350 -400 Intake: Oral 360 50 Output: Urine 200 400 400 Other: Voiding Method Indwelling Catheter Indwelling Catheter # Voids 0 0 Results - Laboratory Findings CBC and BMP: 07/18/19 08:32 07/18/19 08:32 Abnormal Lab Findings: Abnormal Labs 07/16/19 07/16/19 07/16/19 13:10 13:10 14:00 WBC 19.2 H RBC 3.50 L Hgb 11.7 L Hct 34.5 L MCV MCHC Neutrophils # 17.1 H Lymphocytes # 0.8 L Basophils # PT INR Sodium BUN 28 H Glucose 123 H Calcium Urine Protein 1+ H Urine Blood Trace H Ur Leukocyte Esterase Trace H Urine WBC 13 H Hyaline Casts 7 H Urine Mucus Rare H 07/17/19 07/17/19 07/17/19 09:17 09:27 09:27 WBC 15.7 H RBC 2.81 L Hgb 9.0 L D Hct 29.5 L MCV 105.0 H D MCHC 30.6 L Neutrophils # 14.1 H Lymphocytes # 0.3 L Basophils # 0.3 H PT 12.2 H INR 1.2 H Sodium 136 L BUN 31 H Glucose 128 H Calcium 7.8 L Urine Protein Urine Blood Ur Leukocyte Esterase Urine WBC Hyaline Casts Urine Mucus 07/18/19 07/18/19 08:32 08:32 WBC 13.9 H RBC 3.18 L Hgb 10.5 L Hct 34.2 L MCV 107.7 H MCHC 30.6 L Neutrophils # Lymphocytes # Basophils # PT INR Sodium BUN 31 H Glucose 122 H Calcium 8.1 L Urine Protein Urine Blood Ur Leukocyte Esterase Urine WBC Hyaline Casts Urine Mucus
[2019-07-18] MEDS: PRAVASTATIN SODIUM 20 MG TAB PO SCH (21:59)
[2019-07-19] MEDS: SODIUM CHLORIDE 0.9% 1,000 ML IV SCH ×2 (03:28→16:09)
[2019-07-19] MEDS: KETOROLAC 30 MG/ML 1 ML VIAL IVP PRN ×3 (04:30→21:45)
[2019-07-19 09:17] LABS: Basophils % (A) 0 %; Eosinophils % (A) 0 %; HCT 32.9 % (39.0-53.0); HGB 10.3 gm/dL (13.0-17.5); Hypochromasia Slight; Lymphocytes # (A) 1.1 k/uL (1.0-4.8); Lymphocytes % (A) 7 %; MCH 33.1 pg (25.0-35.0); MCHC 31.3 g/dL (31.0-37.0); MCV 105.7 fL (80.0-100.0); Macrocytosis Moderate; Mean Platelet Volume 7.2; Monocytes # (A) 0.6 k/uL (0-1.0); Monocytes % (A) 4 %; Neutrophils # (A) 13.4 k/uL (1.3-7.7); Neutrophils % (A) 86 %; Platelet Count 220 k/uL (150-450); RBC 3.11 m/uL (4.30-5.90); RDW 13.1 % (11.5-15.5); WBC 15.7 k/uL (3.8-10.6)
[2019-07-19] MEDS: ENOXAPARIN 40 MG/0.4 ML SYRINGE SQ SCH (09:28)
[2019-07-19] MEDS: amLODIPine 5 MG TAB PO SCH (09:28)
[2019-07-19] MEDS: LISINOPRIL 10 MG TAB PO SCH (09:28)
[2019-07-19] MEDS: carBAMazepine 200 MG TAB PO SCH ×2 (09:28→21:45)
[2019-07-19] MEDS: BISACODYL 5 MG TABLET.DR PO SCH (09:28)
[2019-07-19] MEDS: LEVOFLOXACIN 750 MG TAB PO SCH (09:28)
[2019-07-19 09:30] LABS: African American GFR (CKD) >90 (>60 ml/min/1.73 sqM); Anion Gap 11 mmol/L; Blood Urea Nitrogen 32 mg/dL (9-20); Calcium 8.1 mg/dL (8.4-10.2); Carbon Dioxide 21 mmol/L (22-30); Chloride 112 mmol/L (98-107); Glucose 118 mg/dL (74-99); Non-African American GFR(CKD) 88 (>60 ml/min/1.73 sqM); Potassium 3.8 mmol/L (3.5-5.1); Sodium 144 mmol/L (137-145)
--- NOTE | 2019-07-19 09:47 | P.PN ---
Progress Note - Text Progress Note Date: 07/19/19 SUBJECTIVE/INTERVAL EVENTS: No acute overnight events. This morning, patient is more awake and alert. He is able to answer all questions appropriately. Patient states that he was told he cannot get MRI after he got the aneurysm repaired with a clip. PHYSICAL EXAMINATION: VITAL SIGNS: T 98.7 HR 85 RR 22 BP 174/72 O2 sat 98% on RA GEN.: NAD, awake HEENT: NCAT, sclera without icterus NECK: Supple SKIN AND EXTREMITIES: Warm to touch, no edema NEURO: MENTAL STATUS: Patient alert and oriented to self, place, time. Able to name the current president. Speech fluent, able to name and repeat, following all commands readily. Patient is hard of hearing. No right and left disorientation, neglect. CRANIAL NERVES II THROUGH XII: II: Pupils are equal and reactive to light symmetrically. No afferent pupillary defect. Blinks to threat bilaterally III, IV, : No ptosis. Extraocular movements full. No nystagmus. VII. No clear facial asymmetry. XII: Tongue midline without fasciculation or atrophy. MOTOR: Decreased bulk in LUE/LLE. Increased tone in LUE/LLE and contractures of L elbow/wrist/fingers and L ankle. With some movement of LLE and RLE (questionable if the movement is spontaneous or a spasm). Patient is able to move RUE against gravity but minimal. SENSORY: States there's numbness/tingling in his R foot. Grimaces to pain in all 4 extremities REFLEXES: 1+ throughout. R toes are downgoing. L toes are mute. COORDINATION/GAIT: Deferred due to difficulty following commands/bed-ridden DIAGNOSTIC TESTING: LABORATORY: WBC 13.9 (down from 19.2-> 15.7) hemoglobin 10.5 platelet 204 PT 12.2 INR 1.2 sodium 140 potassium 3.5 chloride 107 I can't 22 BUN 31 creatinine 1.01 glucose 122 AST 34 ALT 56 alk phos 114 troponin <0.012 urinalysis trace leuk esterase influenza A/B not detected IMAGING: CT head without contrast 07/17/2019: Encephalomalacia within the right cerebral involving the temporal lobe, right frontal parietal region as on prior. Postop changes noted to the right calvarium. No acute intracranial finding. ASSESSMENT: Mr. oMrales is a 68-year-old man with past medical history of hyperlipidemia, hypertension, aneurysm with left-sided deficit, spinal stenosis, presented to [facility] on 07/16/2019 for nonspecific multiple complaints including pain throughout his back, entire body, his right hip, shoulders, consulted neurology for altered mental status and knee weakness. On admission, patient was found with leukocytosis of 19.2, now trending down to 13.9, found with bacteremia. CXR also showing a possible lung mass. Patient with baseline L-sided weakness/contractures from his previous R-sided aneurysm/stroke, and patient with risk factors for stroke such as HLD, HTN, and being mostly bed-ridden. Cannot get MRI due to aneurysm clip RECOMMENDATIONS: 1. Will repeat CT Head on 07/20/19 to see any changes from previous CT Head obtained on 07/17/19. 2. TTE 3. Will pursue further stroke work-up if CT Head shows any changes 4. Routine EEG 5. Labs: TSH, Vitamin B12, RPR 6. Neurology will continue to follow
[2019-07-19 10:52] LABS: T4, Free (Free Thyroxine) 1.14 ng/dL (0.78-2.19)
--- NOTE | 2019-07-19 11:38 | ECHOF ---
Referral Reason:Concern for stroke MEASUREMENTS -------- HEIGHT: 172.7 cm WEIGHT: 59.0 kg BP: 174/72 RVIDd: 3.3 cm (< 3.3) IVSd: 1.2 cm (0.6 - 1.1) LVIDd: 4.6 cm (3.9 - 5.3) LVPWd: 1.1 cm (0.6 - 1.1) IVSs: 1.6 cm LVIDs: 2.9 cm LVPWs: 1.5 cm LA Diam: 3.5 cm (2.7 - 3.8) LAESV Index (A-L): 39.44 ml/m Ao Diam: 3.4 cm (2.0 - 3.7) AV Cusp: 2.4 cm (1.5 - 2.6) MV EXCURSION: 18.525 mm (> 18.000) MV EF SLOPE: 97 mm/s (70 - 150) EPSS: 0.8 cm MV E Enmanuel: 1.38 m/s MV DecT: 171 ms MV A Enmanuel: 1.19 m/s MV E/A Ratio: 1.16 AR PHT: 862 ms RAP: 5.00 mmHg RVSP: 39.96 mmHg TAPSE: 21.39 mm FINDINGS -------- Sinus rhythm. This was a technically good study. The left ventricular size is normal. There is borderline concentric left ventricular hypertrophy. Overall left ventricular systolic function is normal with, an EF between 60 - 65 %. The diastolic filling pattern indicates impaired relaxation 14.75. The right ventricle is mildly enlarged. LA is moderately dilated 34-39 ml/m2 The right atrium is normal in size. Interatrial and interventricular septum intact. There is mild aortic valve sclerosis. There is mild aortic regurgitation. There is trace to mild mitral regurgitation. Mild tricuspid regurgitation present. There is mild pulmonary hypertension. The right ventricular systolic pressure, as measured by Doppler, is 39.96mmHg. Trace/mild (physiologic) pulmonic regurgitation. The aortic root size is normal. Normal inferior vena cava with normal inspiratory collapse consistent with estimated right atrial pre ssure of 5 mmHg. The inferior vena cava is mildly dilated. There is no pericardial effusion. CONCLUSIONS -------- 1. Sinus rhythm. 2. This was a technically good study. 3. The left ventricular size is normal. 4. There is borderline concentric left ventricular hypertrophy. 5. Overall left ventricular systolic function is normal with, an EF between 60 - 65 %. 6. The diastolic filling pattern indicates impaired relaxation 14.75.. 7. The right ventricle is mildly enlarged. 8. LA is moderately dilated 34-39 ml/m2 9. The right atrium is normal in size. 10. Interatrial and interventricular septum intact. 11. There is mild aortic valve sclerosis. 12. There is mild aortic regurgitation. 13. There is trace to mild mitral regurgitation. 14. Mild tricuspid regurgitation present. 15. There is mild pulmonary hypertension. 16. The right ventricular systolic pressure, as measured by Doppler, is 39.96mmHg. 17. Trace/mild (physiologic) pulmonic regurgitation. 18. The aortic root size is normal. 19. Normal inferior vena cava with normal inspiratory collapse consistent with estimated right atrial pressure of 5 mmHg. 20. The inferior vena cava is mildly dilated. 21. There is no pericardial effusion. GRANTS ASSISTANT: Abigail Wang RDCS
[2019-07-19] MEDS: ACETAMINOPHEN TAB 325 MG TAB PO PRN (13:03)
--- NOTE | 2019-07-19 14:57 | P.PN ---
Subjective Progress Note Date: 07/19/19 This is 68-year-old gentleman with history of hyperlipidemia, hypertension, brain aneurysm, CVA with residual left-sided deficits, former smoker presented to the ER with complaints of worsening right shoulder, back and right hip pain, increasing weakness over the last week, increased by activity, unrelieved with Motrin. Vague historian, obtaining information from chart, staff as well. Also patient is very hard of hearing, does not currently have his hearing aid. Nurse reports patient's baseline is normally very active. reported significant weight loss though patient has a good appetite .Denies cough, denies congestion. Abdominal/pelvis CT reporting calcified granuloma within the spleen, moderate stool, distended bladder, prostate gland measuring 5.9 cm, Extensive osteopenia, scattered synovial calcifications both sides with possible erosion extending into the lateral right iliac bone, mild superior endplate deformity of L1-H undetermined, nonobstructive renal calculus, small hiatal hernia. T-max 100.5, WBC 19.2. Blood cultures reporting gram-positive cocci in clusters. Sputum c ulture pending. Hemoglobin 11.7, platelets 244, BUN 28, creatinine 1.09-baseline 0.7. Albumin 3.7 .Influenza tested negative. UA cloudy, reporting hyaline cast of 7, WBC 13, trace leukocytes, 1+ protein. Chest x-ray reporting possible right upper lobe lung mass. EKG reporting normal sinus rhythm, troponins negative 1. Received IV fluids, IV antibiotics of Rocephin, azithromycin, Decadron. Throughout the night received Valium, Dilaudid, Toradol and morphine. 07/18/2019 yesterday patient had received Valium, Dilaudid, morphine contributed to his metabolic encephalopathy. Morphine, Valium, Dilaudid discontinued, placed on Toradol. Generalized pain, improving with Toradol. Yesterday right- sided weakness. Brain CT performed reporting no acute abnormality. More alert this morning, presenting with some right upper and lower extremity weakness. Neurology consulted. Right shoulder x-ray reporting no acute fracture or dislocation hypertrophic changes/arthropathy particularly of the before meals joint, possibly rotator cuff disease. Follow-up Chest x-ray reported no definite acute pneumonia, asymmetry in the medial margin of the right upper lobe. CT ordered. Evaluated by pulmonary, scheduled for bronchoscopy with biopsy tomorrow. T-max 100.5, WBC trending down to 13.9, maintained on cefazolin, Levaquin as per ID. Multiple preliminary blood cultures reporting gram-positive cocci in groups/clusters. Vital signs stable, maintaining O2 sats in the high 90s on room air. 07/19/2019 much more alert this morning. Reports neck, shoulders and lower back sore. Patient able to move right upper and lower extremities but continues to have decreased strength and decreased sensation. Evaluated by a neurology, Neuro workup in progress.Checking into MRI , whether or not patient is able to proceed with, related to history of aneurysm repair. Chest CT reported mild fluid overload, pulmonary vascular congestion with minimal scattered patchy groundglass appearance, mild emphysema, left greater than right dependent opacity's, likely atelectasis versus underlying pneumonia, 9 mm subpleural pulmonary nodule right lower lobe, mildly enlarged mediastinal lymph nodes 2, 1.2 cm and 1.1 cm, focal right mid lung opacity 2.2 x 1 cm-mass ruled out per pulmonary. Afebrile. Objective - Vital Signs Vital signs: Vital Signs Temp 98.7 F 07/19/19 05:50 Pulse 85 07/19/19 05:50 Resp 22 07/19/19 05:50 BP 174/72 07/19/19 05:50 Pulse Ox 98 07/19/19 05:50 Intake & Output 07/18/19 07/19/19 07/19/19 18:59 06:59 18:59 Intake Total 50 1250 Output Total 800 450 Balance -750 800 Intake: Intake, IV Titration 1250 Amount Sodium Chloride 0.9% 1, 1200 000 ml @ 100 mls/hr IV . Q10H [facility] Rx#:[id number] ceFAZolin 2 gm In Sodium 50 Chloride 0.9% 50 ml @ 100 mls/hr IVPB Q8HR [facility] Rx# :[id number] Oral 50 Output: Urine 800 450 Other: Voiding Method Indwelling Catheter Indwelling Catheter # Voids 0 - Exam VITAL SIGNS: As above GENERAL: Sitting up in bed, alert and oriented 3, no acute distress HEENT: Conjunctivae normal. eyes normal. Oral mucosa moist, tongue midline. NECK: No JVD. No thyroid enlargement. No LNs CARDIOVASCULAR: S1, S2 regular. No murmur RESPIRATION: Breath sounds diminished in the bases. No rhonchi or crackles. ABDOMEN: Soft, nontender . No guarding. no masses palpable. Bowel sounds heard. LEGS: No edema. no swelling PSYCHIATRY: Alert and oriented X3, mood and affect normal. NERVOUS SYSTEM: Cranial N 2-12 grossly normal. Speech fluent, appropriate .Left arm contracted, left leg rigid, left foot drop-prior CVA. Decreased motor strength and sensation right arm, right leg. Skin: no rash Microbiology 07/17/19 09:27 Blood Blood Culture Gram Stain - Final 07/17/19 09:27 Blood Blood Culture - Final Staphylococcus aureus 07/17/19 09:17 Blood Blood Culture Gram Stain - Final 07/17/19 09:17 Blood Blood Culture - Final Staphylococcus aureus 07/16/19 15:14 Blood Blood Culture Gram Stain - Final 07/16/19 15:14 Blood Blood Culture - Final Staphylococcus aureus 07/17/19 09:27 Blood Blood Culture - Final 07/17/19 09:17 Blood Blood Culture - Final 07/16/19 15:14 Blood Blood Culture - Final - Labs CBC & Chem 7: 07/19/19 08:49 07/19/19 08:49 Labs: Abnormal Lab Results - Last 24 Hours (Table) 07/18/19 07/18/19 Range/Units 08:32 08:32 WBC 13.9 H (3.8-10.6) k/uL RBC 3.18 L (4.30-5.90) m/uL Hgb 10.5 L (13.0-17.5) gm/dL Hct 34.2 L (39.0-53.0) % MCV 107.7 H (80.0-100.0) fL MCHC 30.6 L (31.0-37.0) g/dL BUN 31 H (9-20) mg/dL Glucose 122 H (74-99) mg/dL Calcium 8.1 L (8.4-10.2) mg/dL Microbiology - Last 24 Hours (Table) 07/16/19 15:14 Blood Culture Gram Stain - Final Blood Blood Culture - Final Staphylococcus aureus 07/17/19 09:27 Blood Culture Gram Stain - Preliminary Blood Blood Culture - Preliminary Presumptive Staph aureus 07/17/19 09:17 Blood Culture Gram Stain - Preliminary Blood Blood Culture - Preliminary Presumptive Staph aureus Assessment and Plan Assessment: -Sepsis secondary to Possible right upper lobe pneumonia, community-acquired, rule out aspiration, possible lung mass per chest x-ray, ruled out per tyson rudolph's review of CT. -Bacteremia, MSSA, possibly acute UTI -New onset right-sided weakness ,Rule out acute CVA, neuro workup in progress. -Pain, chronic of right shoulder and lower back, history of back surgery -Acute metabolic, toxic encephalopathy, medication induced, significantly improved -Moderate stool per CT -Prostatomegaly, 5.9 cm, PSA 2.7 -Degenerative changes bilateral hips with mild endplate deformity of L1, erosive change right iliac bone. -Osteopenia -History of nicotine dependence -History of prior aneurysm, repaired, CVA with residual left-sided deficits -Hypertension -Hyperlipidemia -Gait dysfunction, uses brace -Acute on chronic renal failure, stage II -Acute metabolic encephalopathy secondary to medications, pain -Severe protein calorie malnutrition -Recent Unintentional weight loss reported per ; amount unknown -9 mm subpleural pulmonary nodule right lower lobe, follow-up outpatient -mildly enlarged mediastinal lymph nodes 2, 1.2 cm and 1.1 cm, follow-up outpat ient -Pulmonary hypertension Plan: Continue on current medication regime ,monitoring and symptomatic treatment. Strict aspiration precautions, assistance with all meals/snacks/one-to-one supervision, regular and nectar thick liquids, no straws.No Bronchoscopy -no mass seen on CT per pulmonary. Maintain antibiotics as per Infectious disease. Echo pending.Prognosis guarded given multiple comple x medical issues. The impression and plan of care has been dictated as directed. : I performed a history and examination of this patient, discussed the same with the dictator. I agree with the dictator's note ,documented as a scribe. Any additional findings or plans will be noted. Time taken: 55 minutes
--- NOTE | 2019-07-19 17:26 | PN ---
PROGRESS NOTE DATE OF SERVICE: 07/19/2019 This is a 68-year-old patient. We saw him a couple of days ago in consultation. Initially on chest x-ray it appeared that he had a right upper lobe mass and may need bronchoscopy. In fact, CT scan did not reveal a mass. Hence the bronchoscopy was canceled. He does have a history of previous brain aneurysm with left-sided weakness, status post aneurysm repair, history of hypertension, hyperlipidemia and previous history of back surgery. The patient was seen by Neurology today. Currently the patient appears to be relatively stable from the respiratory standpoint. He is not requiring any supplemental oxygen. He really voices no respiratory issues. PHYSICAL EXAMINATION: VITAL SIGNS: Current vital signs include temperature 100.3, heart rate 94, respiratory rate 20, blood pressure 103/65, mean 77, and room-air saturation is 92%. GENERAL APPEARANCE: He appears in no acute distress. HEENT: HEENT examination is grossly unremarkable. NECK: Supple. Full range of motion. No adenopathy or thyromegaly. CARDIOVASCULAR: Cardiovascular examination reveals regular rhythm and rate. Heart rate in the 90s. S1, S2 normal. LUNGS: Relatively clear. Breath sounds equal. ABDOMEN: Soft. EXTREMITIES: Intact. He does not move the left upper extremity or the left lower extremity. SKIN: Without rash. NEUROLOGIC: Neurologic examination is difficult to assess, but he does speak and is verbal. He does seem to be appropriate. His answers are somewhat slow. The left side of his body is very weak and/or paralyzed. LAB DATA/IMAGING: Reviewed. White count 15.7, hemoglobin 10.3, hematocrit 30.9, platelet count 220,000. Sodium 144, potassium 3.8, chloride 112, CO2 21. Anion gap is 11. BUN and creatinine were 32 and 0.88. TSH is 0.425. The rest of the labs have been reviewed. A chest CT shows mild fluid overload/pulmonary vascular congestion, CAD and COPD, basilar atelectasis, mildly enlarged mediastinal lymph nodes, a 9 mm subpleural pulmonary nodule, right lower lobe, and a focal elongated opacity, right mid lung, likely related to atelectasis. There was no mass in the right upper lobe. ASSESSMENT: 1. Possible mass, right upper lobe, not seen on CT scan. 2. Solitary pulmonary nodules in the right lung, which will need followup in the future. 3. History of previous brain aneurysm with left-sided weakness, status post aneurysm repair. 4. History of hypertension. 5. Hyperlipidemia. 6. History of back surgery. 7. Multiple aches and pains. PLAN: The patient does not need bronchoscopy. Bronchoscopy was cancelled. CT scan did not reveal a right upper lobe mass. He does have some abnormalities on CT scan. Please see above. The patient will need follow-up CT scan down the road. MMODL / IJN: [id number] /
[2019-07-19] MEDS: PRAVASTATIN SODIUM 20 MG TAB PO SCH (21:45)
[2019-07-20] MEDS: SODIUM CHLORIDE 0.9% 1,000 ML IV SCH ×3 (00:19→16:10)
[2019-07-20] MEDS: KETOROLAC 30 MG/ML 1 ML VIAL IVP PRN ×3 (05:14→21:18)
--- NOTE | 2019-07-20 07:31 | CT ---
EXAMINATION TYPE: CT brain wo con DATE OF EXAM: 07/20/2019 COMPARISON: Previous study dated 07/17/2019. HISTORY: Mental status changes CT DLP: 1793 mGycm Automated exposure control for dose reduction was used. FINDINGS: There has been an extensive right-sided craniotomy. There is extensive encephalomalacia involving the posterior temporal, parietal and frontal lobes on the right. This remains unchanged from previous. C entral structures do remain midline. There is no evidence of hydrocephalus. There is no mass effect, midline shift or intracranial blood. Visualized portions of the paranasal sinuses and mastoids are clear. IMPRESSION: 1. NO ACUTE INTRACRANIAL ABNORMALITY. 2. EXTENSIVE POSTSURGICAL CHANGE. 3. EXTENSIVE ENCEPHALOMALACIA ON THE RIGHT, UNCHANGED FROM PREVIOUS.
[2019-07-20 08:00] LABS: African American GFR (CKD) >90 (>60 ml/min/1.73 sqM); Anion Gap 11 mmol/L; Blood Urea Nitrogen 29 mg/dL (9-20); Calcium 7.9 mg/dL (8.4-10.2); Carbon Dioxide 23 mmol/L (22-30); Chloride 110 mmol/L (98-107); Glucose 123 mg/dL (74-99); Non-African American GFR(CKD) 89 (>60 ml/min/1.73 sqM); Potassium 3.4 mmol/L (3.5-5.1); Sodium 144 mmol/L (137-145)
[2019-07-20 08:05] LABS: Basophils % (A) 0 %; Eosinophils % (A) 0 %; Lymphocytes # (A) 0.7 k/uL (1.0-4.8); Lymphocytes % (A) 6 %; MCH 32.7 pg (25.0-35.0); MCHC 32.2 g/dL (31.0-37.0); MCV 101.4 fL (80.0-100.0); Macrocytosis Slight; Mean Platelet Volume 7.1; Monocytes # (A) 0.4 k/uL (0-1.0); Monocytes % (A) 3 %; Neutrophils # (A) 11.1 k/uL (1.3-7.7); Neutrophils % (A) 89 %; Platelet Count 225 k/uL (150-450); RBC 2.76 m/uL (4.30-5.90); RDW 13.2 % (11.5-15.5); WBC 12.5 k/uL (3.8-10.6)
[2019-07-20] MEDS: BISACODYL 5 MG TABLET.DR PO SCH (10:25)
[2019-07-20] MEDS: amLODIPine 5 MG TAB PO SCH (10:25)
[2019-07-20] MEDS: LEVOFLOXACIN 750 MG TAB PO SCH (10:25)
[2019-07-20] MEDS: LISINOPRIL 10 MG TAB PO SCH (10:25)
[2019-07-20] MEDS: ENOXAPARIN 40 MG/0.4 ML SYRINGE SQ SCH (10:26)
[2019-07-20] MEDS: carBAMazepine 200 MG TAB PO SCH ×2 (10:26→21:19)
[2019-07-20] MEDS ORDERED: Potassium Replacement Protocol 1 EACH MISC MISCELLANE PRN (11:12)
[2019-07-20] MEDS: POTASSIUM CHLORIDE ER 20 MEQ TAB.ER PO SCH ×2 (11:39→12:20)
[2019-07-20] MEDS ORDERED: ONDANSETRON 4 MG/2 ML VIAL IVP PRN (14:44)
[2019-07-20] MEDS: hydrALAZINE HCL 20 MG/ML 1 ML VIAL IVP PRN (15:20)
[2019-07-20] MEDS ORDERED: MORPHINE SULFATE 2 MG/ML SYRINGE IVP STA (15:59)
[2019-07-20 16:26] LABS: Magnesium 2.1 mg/dL (1.6-2.3); Potassium 3.7 mmol/L (3.5-5.1)
[2019-07-20] MEDS: ACETAMINOPHEN TAB 325 MG TAB PO PRN (21:19)
[2019-07-20] MEDS: PRAVASTATIN SODIUM 20 MG TAB PO SCH (21:19)
--- NOTE | 2019-07-20 21:47 | P.PN ---
Subjective Progress Note Date: 07/20/19 Principal diagnosis: Sepsis, ? Stroke Mr. Morales is a 68-year-old gentleman with history of hyperlipidemia, hypertension, brain aneurysm, CVA with residual left-sided deficits, former smoker presented to the ER with complaints of worsening right shoulder, back and right hip pain, increasing weakness over the last week, increased by activity, unrelieved with Motrin. Vague historian, obtaining information from chart, staff as well. Also patient is very hard of hearing, does not currently have his hearing aid. Nurse reports patient's baseline is normally very active. Wi fe reported significant weight loss though patient has a good appetite .Denies cough, denies congestion. Abdominal/pelvis CT reporting calcified granuloma within the spleen, moderate stool, distended bladder, prostate gland measuring 5.9 cm, Extensive osteopenia, scattered synovial calcifications both sides with possible erosion extending into the lateral right iliac bone, mild superior endplate deformity of L1-H undetermined, nonobstructive renal calculus, small hiatal hernia. T-max 100.5, WBC 19.2. Blood cultures reporting gram-positive cocci in clusters. Sputum culture pending. Hemoglobin 11.7, platelets 244, BUN 28, creatinine 1.09-baseline 0.7. Albumin 3.7 .Influenza tested negative. UA cloudy, reporting hyaline cast of 7, WBC 13, trace leukocytes, 1+ protein. Chest x-ray reporting possible right upper lobe lung mass. EKG reporting normal sinus rhythm, troponins negative 1. Received IV fluids, IV antibiotics of Rocephin, azithromycin, Decadron. Throughout the night received Valium, Dilaudid, Toradol and morphine. 07/18/2019 yesterday patient had received Valium, Dilaudid, morphine contributed to his metabolic encephalopathy. Morphine, Valium, Dilaudid discontinued, placed on Toradol. Generalized pain, improving with Toradol. Yesterday right- sided weakness. Brain CT performed reporting no acute abnormality. More alert this morning, presenting with some right upper and lower extremity weakness. Neurology consulted. Right shoulder x-ray reporting no acute fracture or dislocation hypertrophic changes/arthropathy particularly of the before meals joint, possibly rotator cuff disease. Follow-up Chest x-ray reported no definite acute pneumonia, asymmetry in the medial margin of the right upper lobe. CT ordered. Evaluated by pulmonary, scheduled for bronchoscopy with biopsy tomorrow. T-max 100.5, WBC trending down to 13.9, maintained on cefazolin, Levaquin as per ID. Multiple preliminary blood cultures reporting gram-positive cocci in groups/clusters. Vital signs stable, maintaining O2 sats in the high 90s on room air. 07/19/2019 much more alert this morning. Reports neck, shoulders and lower back sore. Patient able to move right upper and lower extremities but continues to have decreased strength and decreased sensation. Evaluated by a neurology, Neuro workup in progress.Checking into MRI , whether or not patient is able to proceed with, related to history of aneurysm repair. Chest CT reported mild fluid overload, pulmonary vascular congestion with minimal scattered patchy groundglass appearance, mild emphysema, left greater than right dependent opacity's, likely atelectasis versus underlying pneumonia, 9 mm subpleural pulmonary nodule right lower lobe, mildly enlarged mediastinal lymph nodes 2, 1.2 cm and 1.1 cm, focal right mid lung opacity 2.2 x 1 cm-mass ruled out per pulmonary. Afebrile. Covering for Dr. Martinez over the weekend. On 07/20/19 - Pt has been feeling sick. He had a right UE midline that was lost. And he was throwing up , so could not get his BP or pain meds. Pt c/o nausea and threw up 2-3 times. No abdominal pain or constipation. He had a swallow evaluation done and they recommended thick liquids for now. His is at the bed side and most of the information was given by her. Pt denies having any chest pain. He continues to have mild difficulty in breathing. He is weak on his left side due to h/o prior stroke and now his right upper and lower extremity is weak since admission. His blood cultures are positive for MSSA and most likely the source could be his lungs. He is afebrile over the past 24 hrs. Active Medications Acetaminophen (Tylenol Tab) 650 mg PO Q6HR PRN PRN Reason: Fever and/ or Mild Pain Last Admin: 07/20/19 21:19 Dose: 650 mg Documented by: Albuterol/Ipratropium (Duoneb 0.5 Mg-3 Mg/3 Ml Soln) 3 ml INHALATION RT-Q4H PRN PRN Reason: shortness of breath Amlodipine Besylate (Norvasc) 5 mg PO DAILY [facility] Last Admin: 07/20/19 10:25 Dose: 5 mg Documented by: Bisacodyl (Dulcolax) 10 mg PO DAILY [facility] Last Admin: 07/20/19 10:25 Dose: 10 mg Documented by: Carbamazepine (Tegretol) 200 mg PO BID [facility] Last Admin: 07/20/19 21:19 Dose: 200 mg Documented by: Enoxaparin Sodium (Lovenox) 40 mg SQ DAILY [facility] Last Admin: 07/20/19 10:26 Dose: 40 mg Documented by: Hydralazine HCl (Apresoline) 10 mg IVP Q6HR PRN PRN Reason: Blood Pressure - High SBP>160 Last Admin: 07/20/19 15:20 Dose: 10 mg Documented by: Sodium Chloride (Saline 0.9%) 1,000 mls @ 100 mls/hr IV .Q10H [facility] Last Admin: 07/20/19 16:10 Dose: 100 mls/hr Documented by: Cefazolin Sodium 2 gm/ Sodium (Chloride) 50 mls @ 100 mls/hr IVPB Q8HR [facility] Last Admin: 07/20/19 15:32 Dose: Not Given Documented by: Ketorolac Tromethamine (Toradol) 30 mg IVP Q6HR PRN PRN Reason: MILD TO MODERATE Pain Stop: 07/21/19 08:38 Last Admin: 07/20/19 21:18 Dose: 30 mg Documented by: Levofloxacin (Levaquin) 750 mg PO DAILY [facility] Last Admin: 07/20/19 10:25 Dose: 750 mg Documented by: Lisinopril (Zestril) 10 mg PO DAILY [facility] Last Admin: 07/20/19 10:25 Dose: 10 mg Documented by: Miscellaneous Information (Pneumonia Protocol Utilized) 1 each PO ONCE PRN PRN Reason: Per Protocol Miscellaneous Information (Potassium Per Protocol) 1 each MISCELLANE DAILY PRN; Protocol PRN Reason: Per Protocol Ondansetron HCl (Zofran) 4 mg IVP Q6HR PRN PRN Reason: Nausea And Vomiting Last Admin: 07/20/19 15:11 Dose: 4 mg Documented by: Pravastatin Sodium (Pravachol) 20 mg PO HS [facility] Last Admin: 07/20/19 21:19 Dose: 20 mg Documented by: Objective - Vital Signs Vital signs: Vital Signs Temp 97.7 F 07/20/19 06:13 Pulse 81 07/20/19 06:13 Resp 20 07/20/19 06:13 BP 167/68 07/20/19 06:13 Pulse Ox 96 07/20/19 06:13 Intake & Output 07/19/19 07/20/19 07/20/19 18:59 06:59 18:59 Output Total 900 1100 Balance -900 -1100 Weight 58.967 kg Output: Urine 900 1100 Other: Voiding Method Indwelling Catheter Indwelling Catheter - Exam GENERAL: Sitting up in bed, alert and oriented , throwing up HEENT: Conjunctivae normal. eyes normal. Oral mucosa moist, tongue midline. NECK: No JVD. No thyroid enlargement. No LNs CARDIOVASCULAR: S1, S2 regular. No murmur RESPIRATION: Breath sounds diminished in the bases. No rhonchi or crackles. ABDOMEN: Soft, nontender . No guarding. no masses palpable. Bowel sounds heard. LEGS: No edema. no swelling PSYCHIATRY: Alert and oriented X2- 3 NERVOUS SYSTEM: Speech fluent and appropriate .Left arm contracted, left leg rigid, left foot drop-prior CVA. Decreased motor strength in the right arm, right leg. - Labs CBC & Chem 7: 07/20/19 07:00 07/20/19 15:51 Labs: Abnormal Lab Results - Last 24 Hours (Table) 07/20/19 07/20/19 Range/Units 07:00 07:36 WBC 12.5 H (3.8-10.6) k/uL RBC 2.76 L (4.30-5.90) m/uL Hgb 9.0 L (13.0-17.5) gm/dL Hct 28.0 L (39.0-53.0) % MCV 101.4 H (80.0-100.0) fL Neutrophils # 11.1 H (1.3-7.7) k/uL Lymphocytes # 0.7 L (1.0-4.8) k/uL Potassium 3.4 L (3.5-5.1) mmol/L Chloride 110 H (98-107) mmol/L BUN 29 H (9-20) mg/dL Glucose 123 H (74-99) mg/dL Calcium 7.9 L (8.4-10.2) mg/dL Microbiology - Last 24 Hours (Table) 07/17/19 09:27 Blood Culture Gram Stain - Final Blood Blood Culture - Final Staphylococcus aureus 07/17/19 09:17 Blood Culture Gram Stain - Final Blood Blood Culture - Final Staphylococcus aureus Assessment and Plan Assessment: Assessment: -Sepsis secondary to Possible right upper lobe pneumonia, community-acquired, rule out aspiration -Bacteremia, MSSA, possibly acute UTI vs Prostate as per ID DR. Sanchez -New onset right-sided weakness - Rule out acute CVA, neuro workup in progress. -Pain, chronic of right shoulder and lower back, history of back surgery -Acute metabolic, toxic encephalopathy, medication induced - resolved -Prostatomegaly, 5.9 cm, PSA 2.7 -Degenerative changes bilateral hips with mild endplate deformity of L1, erosive change right iliac bone. -Osteopenia -History of nicotine dependence -History of prior aneurysm, repaired, CVA with residual left-sided deficits -Hypertension -Hyperlipidemia -Gait dysfunction, uses brace -Acute on chronic renal failure, stage II -Acute metabolic encephalopathy secondary to medications, pain -Severe protein calorie malnutrition -Recent Unintentional weight loss reported per ; amount unknown -9 mm subpleural pulmonary nodule right lower lobe, follow-up outpatient -mildly enlarged mediastinal lymph nodes 2, 1.2 cm and 1.1 cm, follow-up outpatient -Pulmonary hypertension Plan: Continue on current medication regime, Ancef for MSSA BActermia and Levofloxacin for ? Pneumonia ,monitoring and symptomatic treatment. Strict aspiration precautions, assistance with all meals/snacks/one-to-one supervision, regular and nectar thick liquids, no straws.No Bronchoscopy -no mass seen on CT per pulmonary. Echo done yesterday showing EF - 60-65 % and moderate Aortic sclerosis and AR .Prognosis guarded given multiple complex medical issues. The treatment plan was discussed with his at bed side in detail today.
[2019-07-21] MEDS: hydrALAZINE HCL 20 MG/ML 1 ML VIAL IVP PRN ×2 (00:58→14:38)
[2019-07-21] MEDS: SODIUM CHLORIDE 0.9% 1,000 ML IV SCH ×2 (04:47→13:48)
[2019-07-21] MEDS: KETOROLAC 30 MG/ML 1 ML VIAL IVP PRN (05:38)
[2019-07-21] MEDS: amLODIPine 5 MG TAB PO SCH ×2 (06:21→08:12)
[2019-07-21 07:48] LABS: Basophils % (A) 0 %; Eosinophils % (A) 0 %; HCT 29.3 % (39.0-53.0); HGB 9.1 gm/dL (13.0-17.5); Lymphocytes # (A) 0.6 k/uL (1.0-4.8); Lymphocytes % (A) 5 %; MCHC 30.9 g/dL (31.0-37.0); MCV 103.7 fL (80.0-100.0); Macrocytosis Slight; Monocytes # (A) 0.4 k/uL (0-1.0); Monocytes % (A) 3 %; Neutrophils # (A) 10.8 k/uL (1.3-7.7); Neutrophils % (A) 89 %; Platelet Count 242 k/uL (150-450); RBC 2.83 m/uL (4.30-5.90); RDW 13.7 % (11.5-15.5); WBC 12.1 k/uL (3.8-10.6)
[2019-07-21] MEDS: ACETAMINOPHEN TAB 325 MG TAB PO PRN ×2 (07:49→21:18)
[2019-07-21] MEDS: carBAMazepine 200 MG TAB PO SCH ×3 (07:50→21:18)
[2019-07-21] MEDS: LISINOPRIL 10 MG TAB PO SCH ×2 (07:50→08:13)
[2019-07-21] MEDS: LEVOFLOXACIN 750 MG TAB PO SCH ×2 (07:50→08:13)
[2019-07-21] MEDS: BISACODYL 5 MG TABLET.DR PO SCH ×2 (07:50→08:13)
[2019-07-21] MEDS: ENOXAPARIN 40 MG/0.4 ML SYRINGE SQ SCH (07:50)
[2019-07-21 07:59] LABS: African American GFR (CKD) >90 (>60 ml/min/1.73 sqM); Anion Gap 9 mmol/L; Blood Urea Nitrogen 31 mg/dL (9-20); Calcium 7.9 mg/dL (8.4-10.2); Carbon Dioxide 23 mmol/L (22-30); Chloride 112 mmol/L (98-107); Glucose 113 mg/dL (74-99); Non-African American GFR(CKD) >90 (>60 ml/min/1.73 sqM); Potassium 3.6 mmol/L (3.5-5.1); Sodium 144 mmol/L (137-145)
[2019-07-21] MEDS: MORPHINE SULFATE 2 MG/ML SYRINGE IVP PRN ×3 (12:01→21:16)
--- NOTE | 2019-07-21 12:19 | P.PN ---
Subjective Progress Note Date: 07/21/19 Principal diagnosis: Sepsis, ? Stroke Mr. Morales is a 68-year-old gentleman with history of hyperlipidemia, hypertension, brain aneurysm, CVA with residual left-sided deficits, former smoker presented to the ER with complaints of worsening right shoulder, back and right hip pain, increasing weakness over the last week. Covering for Dr. Martinez over the weekend. On 07/20/19 - Pt has been feeling sick. He had a right UE midline that was lost. And he was throwing up , so could not get his BP or pain meds. Pt c/o nausea and threw up 2-3 times. No abdominal pain or constipation. He had a swallow evaluation done and they recommended thick liquids for now. His is at the bed side and most of the information was given by her. Pt denies having any chest pain. He continues to have mild difficulty in breathing. He is weak on his left side due to h/o prior stroke and now his right upper and lower extremity is weak since admission. His blood cultures are positive for MSSA and most likely the source could be his lungs. He is afebrile over the past 24 hrs. On 07/21/2019 - patient is lying comfortably in the bed. Overnight active issues reported per the nursing staff. Patient's daughter and at the bedside. They mentioned that patient has been having a lot of muscle spasms in his left lower extremity and has been moving his left extremity a lot throughout the night. On asking the patient he denies having any pain in his lower extremities. He complains of generalized weakness and fatigue. Patient denies having any more vomiting episodes since yesterday morning. But he still feeling nauseous. Patient denies having any chest pain or palpitations. He has mild difficulty in breathing. No cough or sputum production. No abdominal pain. He states his last bowel movement was one week back. He complains of decreased appetite. As the patient failed a swallow evaluation, he is only on thick liquids. Overnight the patient spiked a fever of 100.1. That is also increased swelling in the fingers of the right hand, which is new. Patient's vitals and labs have been reviewed. Active Medications Acetaminophen (Tylenol Tab) 650 mg PO Q6HR PRN PRN Reason: Fever and/ or Mild Pain Last Admin: 07/21/19 07:49 Dose: 650 mg Documented by: Albuterol/Ipratropium (Duoneb 0.5 Mg-3 Mg/3 Ml Soln) 3 ml INHALATION RT-Q4H PRN PRN Reason: shortness of breath Amlodipine Besylate (Norvasc) 5 mg PO DAILY PENDING SALE TO [facility] Last Admin: 07/21/19 08:12 Dose: Not Given Documented by: Bisacodyl (Dulcolax) 10 mg PO DAILY PENDING SALE TO [facility] Last Admin: 07/21/19 08:13 Dose: Not Given Documented by: Carbamazepine (Tegretol) 200 mg PO BID PENDING SALE TO [facility] Last Admin: 07/21/19 08:11 Dose: Not Given Documented by: Enoxaparin Sodium (Lovenox) 40 mg SQ DAILY PENDING SALE TO [facility] Last Admin: 07/21/19 07:50 Dose: 40 mg Documented by: Hydralazine HCl (Apresoline) 10 mg IVP Q6HR PRN PRN Reason: Blood Pressure - High SBP>160 Last Admin: 07/21/19 00:58 Dose: 10 mg Documented by: Sodium Chloride (Saline 0.9%) 1,000 mls @ 100 mls/hr IV .Q10H PENDING SALE TO [facility] Last Admin: 07/21/19 04:47 Dose: Not Given Documented by: Cefazolin Sodium 2 gm/ Sodium (Chloride) 50 mls @ 100 mls/hr IVPB Q8HR PENDING SALE TO [facility] Last Admin: 07/21/19 07:49 Dose: 100 mls/hr Documented by: Levofloxacin (Levaquin) 750 mg PO DAILY PENDING SALE TO [facility] Last Admin: 07/21/19 08:13 Dose: Not Given Documented by: Lisinopril (Zestril) 10 mg PO DAILY PENDING SALE TO [facility] Last Admin: 07/21/19 08:13 Dose: Not Given Documented by: Miscellaneous Information (Pneumonia Protocol Utilized) 1 each PO ONCE PRN PRN Reason: Per Protocol Miscellaneous Information (Potassium Per Protocol) 1 each MISCELLANE DAILY PRN; Protocol PRN Reason: Per Protocol Morphine Sulfate (Morphine Sulfate (Inj)) 1 mg IVP Q4H PRN PRN Reason: Pain/Discomfort Last Admin: 07/21/19 12:01 Dose: 1 mg Documented by: Ondansetron HCl (Zofran) 4 mg IVP Q6HR PRN PRN Reason: Nausea And Vomiting Last Admin: 07/20/19 15:11 Dose: 4 mg Documented by: Pravastatin Sodium (Pravachol) 20 mg PO HS PENDING SALE TO [facility] Last Admin: 07/20/19 21:19 Dose: 20 mg Documented by: Objective - Vital Signs Vital signs: Vital Signs Temp 97.6 F 07/21/19 07:45 Pulse 84 07/21/19 05:20 Resp 22 07/21/19 05:20 BP 160/62 07/21/19 07:45 Pulse Ox 98 07/21/19 05:20 Intake & Output 07/20/19 07/21/19 07/21/19 18:59 06:59 18:59 Output Total 530 700 Balance -530 -700 Output: Urine 530 700 Uretheral (Ye) 200 Other: Voiding Method Indwelling Catheter Indwelling Catheter Indwelling Catheter # Voids 200 # Bowel Movements 0 0 0 - Exam GENERAL: Sitting up in bed, alert and oriented , throwing up HEENT: Conjunctivae normal. eyes normal. Oral mucosa moist, tongue midline. NECK: No JVD. No thyroid enlargement. No LNs CARDIOVASCULAR: S1, S2 regular. No murmur RESPIRATION: Breath sounds diminished in the bases. No rhonchi or crackles. ABDOMEN: Soft, nontender . No guarding. no masses palpable. Bowel sounds heard. Right upper extremity - all the fingers of his right hand are swollen. 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 LEGS: No edema. no swelling PSYCHIATRY: Alert and oriented X2- 3 NERVOUS SYSTEM: Speech fluent and at his baseline as per his .Left arm contracted, left leg rigid, left foot drop-prior CVA. Decreased motor strength and sensations in the right arm, right leg. - Labs CBC & Chem 7: 07/21/19 07:18 07/21/19 07:18 Labs: Abnormal Lab Results - Last 24 Hours (Table) 07/21/19 07/21/19 Range/Units 07:18 07:18 WBC 12.1 H (3.8-10.6) k/uL RBC 2.83 L (4.30-5.90) m/uL Hgb 9.1 L (13.0-17.5) gm/dL Hct 29.3 L (39.0-53.0) % MCV 103.7 H (80.0-100.0) fL MCHC 30.9 L (31.0-37.0) g/dL Neutrophils # 10.8 H (1.3-7.7) k/uL Lymphocytes # 0.6 L (1.0-4.8) k/uL Chloride 112 H (98-107) mmol/L BUN 31 H (9-20) mg/dL Glucose 113 H (74-99) mg/dL Calcium 7.9 L (8.4-10.2) mg/dL Microbiology - Last 24 Hours (Table) 07/17/19 09:27 Blood Culture Gram Stain - Final Blood Blood Culture - Final Staphylococcus aureus 07/17/19 09:17 Blood Culture Gram Stain - Final Blood Blood Culture - Final Staphylococcus aureus Assessment and Plan Assessment: Assessment: -Sepsis secondary to Possible right upper lobe pneumonia, community-acquired, rule out aspiration - Fever of 100.3 last night -Bacteremia, MSSA, possibly acute UTI vs Prostate as per ID DR. Sanchez -New onset right-sided weakness - Rule out acute CVA, neuro workup in progress. -Pain, chronic of right shoulder and lower back, history of back surgery -Acute metabolic, toxic encephalopathy, medication induced - resolved -Prostatomegaly, 5.9 cm, PSA 2.7 -Degenerative changes bilateral hips with mild endplate deformity of L1, erosive change right iliac bone. -Osteopenia -History of nicotine dependence -History of prior aneurysm, repaired, CVA with residual left-sided deficits -Hypertension -Hyperlipidemia -Gait dysfunction, uses brace -Acute on chronic renal failure, stage II -Acute metabolic encephalopathy secondary to medications, pain -Severe protein calorie malnutrition -Recent Unintentional weight loss reported per ; amount unknown -9 mm subpleural pulmonary nodule right lower lobe, follow-up outpatient -mildly enlarged mediastinal lymph nodes 2, 1.2 cm and 1.1 cm, follow-up outpatient -Pulmonary hypertension Plan: As the patient spiked a fever in spite of being on antibiotics, will get a new set of blood cultures. Continue with cefazolin for positive MSSA cultures. As the patient is having increased swelling of his right upper extremity will get a venous Doppler to rule out DVT of the right upper extremity. Strict aspiration precautions, assistance with all meals/snacks/one-to-one supervision, regular and nectar thick liquids, no straws. No Bronchoscopy -no mass seen on CT per pulmonary. Echo done showing EF - 60-65 % and moderate Aortic sclerosis and AR .Prognosis guarded given multiple complex medical issues. The treatment plan was discussed with his and daughter at bed side today. All of their questions were answered in detail. Overall prognosis is guarded. Further recommendations to follow depending on the progress of the patient. Time with Patient: Greater than 30 (discussed with and briannaer at bed side)
--- NOTE | 2019-07-21 13:48 | US ---
EXAMINATION TYPE: US venous doppler duplex UE RT DATE OF EXAM: 07/21/2019 COMPARISON: NONE CLINICAL HISTORY: rule out dvt. Swelling, multiple IV site in this arm, current IV site is at basilic at antecubital fossa, no h/o dvt SIDE PERFORMED: Right Right Arm: Appears negative for DVT cephalic vein and basilic vein in forearm had internal echoes a nd were not compressible IMPRESSION: 1. THIS EXAMINATION APPEARS NEGATIVE FOR DVT WITHIN THE RIGHT ARM. 2. THIS EXAMINATION IS POSITIVE FOR SUPERFICIAL PHLEBITIS IN THE RIGHT ARM.
[2019-07-21] MEDS: PRAVASTATIN SODIUM 20 MG TAB PO SCH (21:18)
[2019-07-22] MEDS: SODIUM CHLORIDE 0.9% 1,000 ML IV SCH ×3 (01:56→20:51)
[2019-07-22] MEDS: MORPHINE SULFATE 2 MG/ML SYRINGE IVP PRN (04:18)
[2019-07-22] MEDS: amLODIPine 5 MG TAB PO SCH (07:30)
[2019-07-22] MEDS: LEVOFLOXACIN 750 MG TAB PO SCH (07:30)
[2019-07-22] MEDS: ENOXAPARIN 40 MG/0.4 ML SYRINGE SQ SCH (07:30)
[2019-07-22] MEDS: LISINOPRIL 10 MG TAB PO SCH (07:30)
[2019-07-22] MEDS: BISACODYL 5 MG TABLET.DR PO SCH (07:30)
[2019-07-22] MEDS: carBAMazepine 200 MG TAB PO SCH ×2 (07:30→20:50)
[2019-07-22] MEDS ORDERED: POLYETHYLENE GLYCOL 3350 17 GM POWD.PACK PO SCH (11:15)
--- NOTE | 2019-07-22 11:33 | P.PN ---
Subjective Progress Note Date: 07/22/19 This is 68-year-old gentleman with history of hyperlipidemia, hypertension, brain aneurysm, CVA with residual left-sided deficits, former smoker presented to the ER with complaints of worsening right shoulder, back and right hip pain, increasing weakness over the last week, increased by activity, unrelieved with Motrin. Vague historian, obtaining information from chart, staff as well. Also patient is very hard of hearing, does not currently have his hearing aid. Nurse reports patient's baseline is normally very active. reported significant weight loss though patient has a good appetite .Denies cough, denies congestion. Abdominal/pelvis CT reporting calcified granuloma within the spleen, moderate stool, distended bladder, prostate gland measuring 5.9 cm, Extensive osteopenia, scattered synovial calcifications both sides with possible erosion extending into the lateral right iliac bone, mild superior endplate deformity of L1-H undetermined, nonobstructive renal calculus, small hiatal hernia. T-max 100.5, WBC 19.2. Blood cultures reporting gram-positive cocci in clusters. Sputum c ulture pending. Hemoglobin 11.7, platelets 244, BUN 28, creatinine 1.09-baseline 0.7. Albumin 3.7 .Influenza tested negative. UA cloudy, reporting hyaline cast of 7, WBC 13, trace leukocytes, 1+ protein. Chest x-ray reporting possible right upper lobe lung mass. EKG reporting normal sinus rhythm, troponins negative 1. Received IV fluids, IV antibiotics of Rocephin, azithromycin, Decadron. Throughout the night received Valium, Dilaudid, Toradol and morphine. 07/18/2019 yesterday patient had received Valium, Dilaudid, morphine contributed to his metabolic encephalopathy. Morphine, Valium, Dilaudid discontinued, placed on Toradol. Generalized pain, improving with Toradol. Yesterday right- sided weakness. Brain CT performed reporting no acute abnormality. More alert this morning, presenting with some right upper and lower extremity weakness. Neurology consulted. Right shoulder x-ray reporting no acute fracture or dislocation hypertrophic changes/arthropathy particularly of the before meals joint, possibly rotator cuff disease. Follow-up Chest x-ray reported no definite acute pneumonia, asymmetry in the medial margin of the right upper lobe. CT ordered. Evaluated by pulmonary, scheduled for bronchoscopy with biopsy tomorrow. T-max 100.5, WBC trending down to 13.9, maintained on cefazolin, Levaquin as per ID. Multiple preliminary blood cultures reporting gram-positive cocci in groups/clusters. Vital signs stable, maintaining O2 sats in the high 90s on room air. 07/19/2019 much more alert this morning. Reports neck, shoulders and lower back sore. Patient able to move right upper and lower extremities but continues to have decreased strength and decreased sensation. Evaluated by a neurology, Neuro workup in progress.Checking into MRI , whether or not patient is able to proceed with, related to history of aneurysm repair. Chest CT reported mild fluid overload, pulmonary vascular congestion with minimal scattered patchy groundglass appearance, mild emphysema, left greater than right dependent opacity's, likely atelectasis versus underlying pneumonia, 9 mm subpleural pulmonary nodule right lower lobe, mildly enlarged mediastinal lymph nodes 2, 1.2 cm and 1.1 cm, focal right mid lung opacity 2.2 x 1 cm-mass ruled out per pulmonary. Afebrile. 07/22/2019 Doppler of right upper extremity reported negative for DVT, positive superficial phlebitis. EF 60-65%. Alert and oriented 3, Sleepy, Unable to keep eyes open, received morphine IV push at 0400. Right-sided weakness improving, stronger. Complains of numbness feeling in his right hand. Repeat CT reported no changes. T-max 99.9. Most recent repeat blood culture reporting no growth at 24 hours . Appears to be choking on thin liquids,speech therapy to reevaluate. Second midline clotted off, PICC line ordered. No new labs today. Objective - Vital Signs Vital signs: Vital Signs Temp 99 F 07/22/19 05:30 Pulse 78 07/22/19 05:30 Resp 22 07/22/19 05:30 BP 140/67 07/22/19 05:30 Pulse Ox 97 07/22/19 05:30 Intake & Output 07/21/19 07/22/19 07/22/19 18:59 06:59 18:59 Output Total 300 820 Balance -300 -820 Output: Urine 300 820 Other: Voiding Method Indwelling Catheter Indwelling Catheter Indwelling Catheter # Bowel Movements 0 - Exam VITAL SIGNS: As above GENERAL: Sitting up in bed, sleepy, no acute distress HEENT: Conjunctivae normal. eyes normal. Oral mucosa moist, tongue midline. NECK: No JVD. No thyroid enlargement. No LNs CARDIOVASCULAR: S1, S2 regular. No murmur RESPIRATION: Breath sounds diminished in the bases. No rhonchi or crackles. ABDOMEN: Soft, nontender . No guarding. no masses palpable. Bowel sounds heard. LEGS: No edema. no swelling PSYCHIATRY: Alert and oriented X3, mood and affect normal. NERVOUS SYSTEM: Cranial N 2-12 grossly normal. Speech fluent, appropriate .Left arm contracted, left leg rigid, left foot drop-prior CVA. Decreased motor strength and sensation right arm, right leg, improving. Skin: no rash Microbiology 07/17/19 09:27 Blood Blood Culture Gram Stain - Final 07/17/19 09:27 Blood Blood Culture - Final Staphylococcus aureus 07/17/19 09:17 Blood Blood Culture Gram Stain - Final 07/17/19 09:17 Blood Blood Culture - Final Staphylococcus aureus 07/16/19 15:14 Blood Blood Culture Gram Stain - Final 07/16/19 15:14 Blood Blood Culture - Final Staphylococcus aureus 07/17/19 09:27 Blood Blood Culture - Final 07/17/19 09:17 Blood Blood Culture - Final 07/16/19 15:14 Blood Blood Culture - Final - Labs CBC & Chem 7: 07/21/19 07:18 07/21/19 07:18 Labs: Microbiology - Last 24 Hours (Table) 07/21/19 07:18 Blood Culture - Preliminary Blood No Growth after 24 hours Assessment and Plan Assessment: -Sepsis secondary to Possible right upper lobe pneumonia, probably aspiration, MBS pending. Lung mass per chest x-ray, ruled out per pulmonary's review of CT with no bronchoscopy/bx recommended at this time. -Bacteremia, MSSA, possibly acute UTI, possibly related to prostate as per ID -New onset right-sided weakness , possible acute CVA, TIA -Pain, chronic of right shoulder and lower back, history of back surgery -Acute metabolic, toxic encephalopathy, medication induced, resolved -Prostatomegaly, 5.9 cm, PSA 2.7 -Degenerative changes bilateral hips with mild endplate deformity of L1, erosive change right iliac bone. -Osteopenia -History of nicotine dependence -History of prior aneurysm, repaired, CVA with residual left-sided deficits -Hypertension -Hyperlipidemia -Gait dysfunction, uses brace -Acute on chronic renal failure, stage II -Severe protein calorie malnutrition, BMI 19.8 -Recent Unintentional weight loss reported per ; amount unknown -9 mm subpleural pulmonary nodule right lower lobe, follow-up outpatient -mildly enlarged mediastinal lymph nodes 2, 1.2 cm and 1.1 cm, follow-up outpatient -Pulmonary hypertension Plan: Continue on current medication regime ,monitoring and symptomatic treatment. Strict aspiration precautions, assistance with all meals/snac ks/one-to-one supervision, regular and nectar thick liquids, no straws.MBS as per speech therapy.Maintain antibiotics as per Infectious disease. Daughter at bedside, questions, concerns addressed, plan of care discussed including subacute rehab, possibly tomorrow. Morphine discontinued, Ultram initiated-will monitor response/pain control with change in pain medication regimen. Daughter verbalize understanding of and agreement with plan. Prognosis guarded given multiple complex medical issues. The impression and plan of care has been dictated as directed. : I performed a history and examination of this patient, discussed the same with the dictator. I agree with the dictator's note ,documented as a scribe. Any additional findings or plans will be noted. Time taken: 55 minutes
[2019-07-22 12:04] LABS: INR 1.5 (<1.2); Prothrombin Time 15.1 sec (9.0-12.0)
[2019-07-22] MEDS ORDERED: LIDOCAINE 1% INJ 10MG/ML (20 ML MDV) SQ ONE (12:55)
--- NOTE | 2019-07-22 13:05 | FL ---
EXAMINATION TYPE: FL barium swallow w video DATE OF EXAM: 07/22/2019 COMPARISON: NONE HISTORY: Rule out aspiration TECHNIQUE: Fluoroscopy. FINDINGS: Fluoroscopic guidance was provided for the procedure performed in conjunction with the [facility] pathology department. Please see complete report forthcoming from the Speech Pathology departmen t. Various consistencies from thin liquid to solids were administered. Fluoroscopy time 1 minute 46 seconds. Number of images: 0. There is aspiration with thin liquids. Attempts to perform the chin tuck method were unsuccessful due to limited mobility. Furman thick and greater consistencies appeared normal without aspiration or pe netration. No significant pooling was observed in the vallecula. There was some weakness of propulsion of the bolus. IMPRESSION: 1. Aspiration of thin liquids. Remaining consistencies appeared normal
--- NOTE | 2019-07-22 13:13 | IR ---
PICC LINE PLACEMENT: HISTORY: Infection requiring long-term antibiotic therapy PROCEDURE: Ultrasound and fluoroscopic guidance of PICC line placement. COMPLICATIONS: None ANESTHESIA: 1. 1% Lidocaine locally. FINDINGS/TECHNIQUE: The procedure was explained to the patient. The risks, complications, benefits and alternatives were discussed and any questions were answered. Informed consent was obtained. The patient was placed supine on the fluoroscopic table and prepped and draped in the usual sterile fash ion. Utilizing a 21 gauge needle and sonographic and fluoroscopic guidance, access in the right bra chial vein was achieved and there is placement of a 0.018 guidewire. The vein is patent. A 4-F robbins th was placed over the guidewire. The guidewire and dilator were removed and a 4-F. PICC line was pl aced through the sheath with the tip at the level of the SVC. The sheath was removed, the catheter w as flushed and sutured into position. The patient was stable throughout the procedure and remained s table upon discharge from the Department of Radiology. The vein puncture was patent under ultrasound. A bartholomew scale image was obtained to document patency of the vein punctured. All elements of the maximal barrier technique were utilized. FLUOROSCOPY TIME: 0.2 minutes and one image submitted IMPRESSION: Successful PICC line placement under ultrasound and fluoroscopic guidance.
[2019-07-22] MEDS: traMADol 50 MG TAB PO PRN ×2 (13:20→22:38)
--- NOTE | 2019-07-22 15:56 | P.PN ---
Subjective Progress Note Date: 07/22/19 Patient was seen by Dr. Mendez on 07/19/2019. I am providing follow-up neurological care starting from today. I reviewed neurological Notes. Spoke to patient's in detail. Patient came to the hospital for chills, and pain all over the body. This has been going on for about 10 days. Patient apparently has pain more significantly in the neck and low back region. Patient has developed generalized weakness. Patient has history of left hemiparesis, related to CVA after he suffered from clipping of cerebral aneurysm at age 33. Any movement produces severe pain in the neck and the low back. Patient apparently uses brace for the left leg. 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 Patient denies any tobacco or alcohol. Patient's blood test shows WBC 12.1 hemoglobin 9.1, platelets 342. INR 1.5. Sodium potassium normal. RPR negative. Influenza negative. B12 905, TSH is mildly low 0.4-5. Free T4 normal. Liver panel normal. Blood cultures had grown staph aureus multiple times including yesterday. Objective - Vital Signs Vital signs: Vital Signs Temp 99 F 07/22/19 05:30 Pulse 78 07/22/19 05:30 Resp 22 07/22/19 05:30 BP 140/67 07/22/19 05:30 Pulse Ox 97 07/22/19 05:30 Intake & Output 07/21/19 07/22/19 07/22/19 18:59 06:59 18:59 Output Total 300 820 Balance -300 -820 Output: Urine 300 820 Other: Voiding Method Indwelling Catheter Indwelling Catheter Indwelling Catheter # Bowel Movements 0 - Exam On examination patient is an elderly male, who appears to be in mo derate distress. He is in severe pain in his neck and the low back. Any movement trigger severe pain. Patient has normal speech and language functions. Cranial nerves are normal. On muscle strength testing patient is hemiplegic on the left side from his previous CVA. Patient appears very weak on the right side as well including deltoid about 3, biceps 4+ to 5-, triceps 4-, pediatric care coordinator 3+ to 4. He has severe weakness of interossei, wrist extension. Patient is very weak in the right hip flexion, knee extension. Patient has bilateral Babinski. - Labs CBC & Chem 7: 07/21/19 07:18 07/21/19 07:18 Labs: Abnormal Lab Results - Last 24 Hours (Table) 07/22/19 Range/Units 11:30 PT 15.1 H (9.0-12.0) sec INR 1.5 H (<1.2) Microbiology - Last 24 Hours (Table) 07/21/19 07:18 Blood Culture Gram Stain - Preliminary Blood 07/21/19 07:18 Blood Culture - Final Blood Assessment and Plan Assessment: * 68-year-old male admitted with chills, generalized body pains, particularly involving the cervical and lumbar spine. 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 Patient however al ways has been very strong involving right side of the body. Patient at present is severely weak in the right side of the body with evidence of Babinski on the right. Patient has persistent bacteremia. Very concerned about epidural abscess, with spinal cord compression. Plan: * Patient cannot have MRI due to presence of metallic clips. * Patient probably needs a CT myelogram. * Patient needs stat neurosurgical consultation to rule out spinal epidural abscess. * Personally discussed case with Dr. Rohan Martinez, who will initiate a stat neurosurgical consultation.
[2019-07-22] MEDS: hydrALAZINE HCL 20 MG/ML 1 ML VIAL IVP PRN ×2 (17:23→22:39)
[2019-07-22] MEDS: PRAVASTATIN SODIUM 20 MG TAB PO SCH (20:50)
--- NOTE | 2019-07-22 22:25 | P.PN ---
Subjective Progress Note Date: 07/22/19 This is a 68-year-old male who presented to the hospital with generalized body aches especially to the shoulder and back area along with back pain right hip pain increasing with activity. He has also had fevers and chills at night for the past week. Patient is normally very independent and active and this is a big change for him. related to the nurse that he has also had significant weight loss without any attempt and still seems to have a good appetite. Patient is unable to provide significant history and has received Valium, Dilaudid and morphine which could be contributing to his mental status change. He is able to state that this is not my normal. Patient came into [facility] emergency center found to have low-grade fever 100.5 with tachycardia, leukocytosis 19.2, hemoglobin 11.7 and platelet count 244. He is BUN 28, creatinine 1.09, albumin 3.7, urinalysis cloudy, leukoesterase trace, WBC 13. Influenza testing negative. Blood cultures positive for gram-positive cocci in clusters. CAT scan of the abdomen and pelvis without contrast reveals prior L3 S1 posterior fusion. Mild endplate deformity of L1. Degenerative changes in both hips and synovial calcifications. Erosive change in the lateral right iliac bone above acetabulum possible history of gout. Limited abdominal evaluation due to lack of contrast. Moderate stool, 2 mm nonobstructive right renal calculus, small hiatal hernia. Chest x-ray reveals a possible right upper lobe lung mass. Patient is status post 1 L of IV fluid, Rocephin, azithromycin, Decadron, Valium Dilaudid and Toradol and morphine in the emergency center. A sputum is on collected. Blood culture is gram-positive cocci in clusters. 07/22/2019 reveals the patient to continue to have significant pain in his neck with right-sided weakness which is somewhat new and concerning given that he also has a left paresis from his prior illness. There are now multiple positive blood cultures with MSSA. The 2-D echocardiogram was negative and a KYRA has been requested. Neurology has evaluated again today and with his ongoing positive blood cultures and is increasing pain in the weakness there is concerns to infection related to his prior surgical interventions as well as potential for a epidural abscess within the cervical spine area. The patient did have a swallow study and is being fed with assistance. Objective - Vital Signs Vital signs: Vital Signs Temp 98.7 F 07/22/19 16:58 Pulse 88 07/22/19 16:58 Resp 20 07/22/19 16:58 BP 149/78 07/22/19 18:05 Pulse Ox 94 L 07/22/19 15:00 Intake & Output 07/22/19 07/22/19 07/23/19 06:59 18:59 06:59 Output Total 820 900 Balance -820 -900 Output: Urine 820 900 Other: Voiding Method Indwelling Catheter Indwelling Catheter - Exam Gen: This is a thin cachectic appearing 68-year-old male. Patient is sitting up in bed and appears to be in no acute distress. No respiratory distress noted. HEENT: Head is atraumatic, normocephalic. Pupils equal, round. Sclerae is anicteric. Oral mucous membranes are extremely dry. Dentition is in fair order for age. NECK: Supple. No JVD. No lymphadenopathy. No thyromegaly. LUNGS: Clear to auscultation. No wheezes or rhonchi. No intercostal retraction s. HEART: Regular rate and rhythm. No murmur. ABDOMEN: Flat Soft. Bowel sounds are present. No masses. No tenderness. EXTREMITIES: No pedal edema. No calf tenderness. Foot drop on the left. Dorsa lis pedis +2 on the right, +1 on the left. Contracture of the left upper extremity. Straight leg raise negative bilaterally. NEUROLOGICAL: Patient is awake and oriented to person and place. . Patient is able to follow directions. He is unable to give reliable history. he does have the known left-sided weakness nd is now having the increasing weakness to the right side. - Labs CBC & Chem 7: 07/21/19 07:18 07/21/19 07:18 Labs: Abnormal Lab Results - Last 24 Hours (Table) 07/22/19 Range/Units 11:30 PT 15.1 H (9.0-12.0) sec INR 1.5 H (<1.2) Microbiology - Last 24 Hours (Table) 07/21/19 07:18 Blood Culture Gram Stain - Preliminary Blood Blood Culture - Preliminary Staphylococcus aureus 07/21/19 07:18 Blood Culture - Final Blood Laboratory Results WBC 12.1 k/uL (3.8-10.6) H 07/21/19 07:18 RBC 2.83 m/uL (4.30-5.90) L 07/21/19 07:18 Hgb 9.1 gm/dL (13.0-17.5) L 07/21/19 07:18 Hct 29.3 % (39.0-53.0) L 07/21/19 07:18 MCV 103.7 fL (80.0-100.0) H 07/21/19 07:18 MCH 32.0 pg (25.0-35.0) 07/21/19 07:18 MCHC 30.9 g/dL (31.0-37.0) L 07/21/19 07:18 RDW 13.7 % (11.5-15.5) 07/21/19 07:18 Plt Count 242 k/uL (150-450) 07/21/19 07:18 Neutrophils % 89 % 07/21/19 07:18 Lymphocytes % 5 % 07/21/19 07:18 Monocytes % 3 % 07/21/19 07:18 Eosinophils % 0 % 07/21/19 07:18 Basophils % 0 % 07/21/19 07:18 Neutrophils # 10.8 k/uL (1.3-7.7) H 07/21/19 07:18 Lymphocytes # 0.6 k/uL (1.0-4.8) L 07/21/19 07:18 Monocytes # 0.4 k/uL (0-1.0) 07/21/19 07:18 Eosinophils # 0.0 k/uL (0-0.7) 07/21/19 07:18 Basophils # 0.0 k/uL (0-0.2) 07/21/19 07:18 Hypochromasia Slight 07/19/19 08:49 Macrocytosis Slight 07/21/19 07:18 PT 15.1 sec (9.0-12.0) H 07/22/19 11:30 INR 1.5 (<1.2) H 07/22/19 11:30 Sodium 144 mmol/L (137-145) 07/21/19 07:18 Potassium 3.6 mmol/L (3.5-5.1) 07/21/19 07:18 Chloride 112 mmol/L (98-107) H 07/21/19 07:18 Carbon Dioxide 23 mmol/L (22-30) 07/21/19 07:18 Anion Gap 9 mmol/L 07/21/19 07:18 BUN 31 mg/dL (9-20) H 07/21/19 07:18 Creatinine 0.78 mg/dL (0.66-1.25) 07/21/19 07:18 Est GFR (CKD-EPI)AfAm >90 (>60 ml/min/1.73 sqM) 07/21/19 07:18 Est GFR (CKD-EPI)NonAf >90 (>60 ml/min/1.73 sqM) 07/21/19 07:18 Glucose 113 mg/dL (74-99) H 07/21/19 07:18 Plasma Lactic Acid Chaz 1.1 mmol/L (0.7-2.0) 07/18/19 08:32 Calcium 7.9 mg/dL (8.4-10.2) L 07/21/19 07:18 Phosphorus 4.1 mg/dL (2.5-4.5) 07/16/19 13:10 Magnesium 2.1 mg/dL (1.6-2.3) 07/20/19 15:51 Total Bilirubin 0.5 mg/dL (0.2-1.3) 07/16/19 13:10 AST 34 U/L (17-59) 07/16/19 13:10 ALT 56 U/L (21-72) 07/16/19 13:10 Alkaline Phosphatase 114 U/L (38-126) 07/16/19 13:10 Creatine Kinase 135 U/L (55-170) 07/16/19 13:10 Troponin I <0.012 ng/mL (0.000-0.034) 07/16/19 13:10 Total Protein 7.4 g/dL (6.3-8.2) 07/16/19 13:10 Albumin 3.7 g/dL (3.5-5.0) 07/16/19 13:10 Free PSA 1.33 ng/mL 07/17/19 09:27 % Free PSA 49 % 07/17/19 09:27 Total PSA 2.7 ng/mL (<=4.0) 07/17/19 09:27 Vitamin B12 905.0 pg/mL (200.0-944.0) 07/19/19 08:49 TSH 0.425 mIU/L (0.465-4.680) L 07/19/19 08:49 Free T4 1.14 ng/dL (0.78-2.19) 10 08:49 Urine Color Yellow 07/16/19 14:00 Urine Appearance Cloudy (Clear) 07/16/19 14:00 Urine pH 5.5 (5.0-8.0) 07/16/19 14:00 Ur Specific Beatty 1.020 (1.001-1.035) 07/16/19 14:00 Urine Protein 1+ (Negative) H 07/16/19 14:00 Urine Glucose (UA) Negative (Negative) 07/16/19 14:00 Urine Ketones Negative (Negative) 07/16/19 14:00 Urine Blood Trace (Negative) H 07/16/19 14:00 Urine Nitrite Negative (Negative) 07/16/19 14:00 Urine Bilirubin Negative (Negative) 07/16/19 14:00 Urine Urobilinogen <2.0 mg/dL (<2.0) 07/16/19 14:00 Ur Leukocyte Esterase Trace (Negative) H 07/16/19 14:00 Urine RBC 1 /hpf (0-5) 07/16/19 14:00 Urine WBC 13 /hpf (0-5) H 07/16/19 14:00 Ur Squamous Epith Cells <1 /hpf (0-4) 07/16/19 14:00 Cellular Casts 19 /lpf (0) 07/16/19 14:00 Hyaline Casts 7 /lpf (0-2) H 07/16/19 14:00 Granular Casts 1 /lpf (0) 07/16/19 14:00 Urine Mucus Rare /hpf (None) H 07/16/19 14:00 Treponema pallidum Ab Non-Reactive (Non-Reactive) 07/19/19 08:49 Influenza Type A RNA Not Detected (Not Detectd) 07/16/19 14:12 Influenza Type B (PCR) Not Detected (Not Detectd) 07/16/19 14:12 Microbiology 07/21/19 07:18 Blood Blood Culture Gram Stain - Preliminary 07/21/19 07:18 Blood Blood Culture - Preliminary Staphylococcus aureus 07/21/19 07:18 Blood Blood Culture - Final 07/17/19 09:27 Blood Blood Culture Gram Stain - Final 07/17/19 09:27 Blood Blood Culture - Final Staphylococcus aureus 07/17/19 09:17 Blood Blood Culture Gram Stain - Final 07/17/19 09:17 Blood Blood Culture - Final Staphylococcus aureus 07/16/19 15:14 Blood Blood Culture Gram Stain - Final 07/16/19 15:14 Blood Blood Culture - Final Staphylococcus aureus 07/17/19 09:27 Blood Blood Culture - Final 07/17/19 09:17 Blood Blood Culture - Final 07/16/19 15:14 Blood Blood Culture - Final Assessment and Plan (1) Leukocytosis Current Visit: Yes Status: Acute Code(s): D72.829 - ELEVATED WHITE BLOOD CELL COUNT, UNSPECIFIED SNOMED Code(s): 525016291 (2) MSSA bacteremia Narrative/Plan: 68-year-old male who is arousable, he was a very poor historian and does not do well following any commands. He complaints that he feels fidgety and has profound weakness. The patient's is present and relates that normally he is modestly functional he does have many medical troubles about a few weeks ago he was out in the yard cutting wood with his chainsaw. He rapidly became weak and difficulties in ambulation and eventually his arms became so weak that he can't raise them that she also had him brought to Hospital by EMS. He was having significant severe pain related to his severe back troubles and he received multiple medications and became very obtunded. That is starting to improve however there was evidence of the gram-positive cocci bacteremia. Consult was was requested. The patient does not have significant localizing symptoms except for his chronic back pain, does not appear to have actually worsened as of late. At this time repeat blood cultures are requested, the source of the gram-positive cocci likely staph aureus bacteremia is not clear. There has been some abnormality of the chest x-ray but follow-ups does not appear to be mass may be related to some rib abnormalities shoulder x-ray without fracture or dislocation. The patient does have a markedly enlarged prostate and consequently infection of the urinary system will be a likely etiology at this time. With evidence of the staph aureus in the blood Ancef was added to the levofloxacin that was being utilized. Follow up cultures be monitored once is evidence of clearance of bacteremia IV access and required and I will have to determine best possible placement at discharge. 07/22/2019 the patient's status has not improved, continues to have the right- sided weakness that may be worse. Continues to have pain at the base of his neck and has been having some low-grade fevers and leukocytosis. With anyone bacteremia this concerns the site of an abscess since no other source has been found, however a KYRA has not been performed as of yet. Because of the concerns to the potential for any intracranial or cervical spine epidural abscess the pat ient is being transferred to a tertiary care center for neurosurgical evaluation and potential decompression. The patient does have clips in place and we are unable to perform MRI at this facility. Antibiotic therapy continues and high- dose cefazolin for the MSSA bacteremia.Patient lost IV access and currently does have a catheter in place, will need replacement as he improves. 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
[2019-07-22 23:22] VITALS: PULSE 87; RESP 18; TEMP 98.8
[2019-07-22 23:26] VITALS: BP 172/70
--- NOTE | 2019-07-25 07:23 | CDI ---
Documentation Clarification Form Date: 07/25/19 From: Brad Gunderson Phone: call [phone] Admit Date: 07/16/2019 2:23:00 PM Patient Name: Johnnie Morales Visit Number: [id number] Discharge Date: 07/23/2019 12:15:00 AM ATTENTION: The Clinical Documentation Specialists (CDI) and [facility] Coding Staff appreciate your assistance in clarifying documentation. Please respond to the clarification below the line at the bottom and electronically sign. The CDI & [facility] Coding staff will review the response and follow-up if needed. Please note: Queries are made part of the Legal Health Record. If you have any questions, please contact the author of this message via ITS. Dr. Rohan Martinez, Conflicting documentation has been found in the medical record: In 07/22 documented as " sepsis secondary to pneumonia probably aspiration" and "Bacteremia, MSSA, possibly acute UTI, possibly related to prostate as per ID" Per ID Dr. Daniel stoner stated as "With anyone bacteremia this concerns the site of an abscess since no other source has been found". Because of the concerns to the potential for any intracranial or cervical spine epidural abscess the patient is being transferred to a tertiary care center for neurosurgical evaluation and potential decompression. History/Risk Factors: Back surgery, Treatment: IV abx In your opinion, what is the most clinically appropriate diagnosis for this patient? Sepsis secondary to pneumonia probably aspiration Sepsis secondary to intraspinal abscess(previous back surgery leads to complication) Other explanation of clinical findings Unable to determine (no explanation for clinical findings) this patient had 2 likely of sepsis the first one was pneumonia with possi. The second one was noted intraspinal abscess which was required to transfer patient to tertiary center. CARON
== END 2019-07-23 00:15 | disposition short-term general hospital (02) | DRG 871 ==
LOC: EC 10:25 → 4MS4W 14:23
PROVIDERS: ADMIT Family Medicine; ATTEND Family Medicine
PROC: 05H933Z Insertion of Infusion Device into Right Brachial Vein, Percutaneous Approach (ICD-10-PCS; 2019-07-18)
PROC: 05HB33Z Insertion of Infusion Device into Right Basilic Vein, Percutaneous Approach (ICD-10-PCS; 2019-07-20 14:00)
PROC: 02HV33Z Insertion of Infusion Device into Superior Vena Cava, Percutaneous Approach (ICD-10-PCS; principal; 2019-07-22 12:39)
DX: A41.01 Sepsis due to Methicillin susceptible Staphylococcus aureus (principal); J69.0 Pneumonitis due to inhalation of food and vomit; E43 Unspecified severe protein-calorie malnutrition; G92 Toxic encephalopathy; G06.1 Intraspinal abscess and granuloma; N17.9 Acute kidney failure, unspecified; I69.354 Hemiplegia and hemiparesis following cerebral infarction affecting left non-dominant side; G81.91 Hemiplegia, unspecified affecting right dominant side; Z68.1 Body mass index [BMI] 19.9 or less, adult; E78.5 Hyperlipidemia, unspecified; I12.9 Hypertensive chronic kidney disease with stage 1 through stage 4 chronic kidney disease, or unspecified chronic kidney disease; I27.20 Pulmonary hypertension, unspecified; I80.9 Phlebitis and thrombophlebitis of unspecified site; K44.9 Diaphragmatic hernia without obstruction or gangrene; N18.2 Chronic kidney disease, stage 2 (mild); N20.0 Calculus of kidney; N40.0 Benign prostatic hyperplasia without lower urinary tract symptoms; M48.00 Spinal stenosis, site unspecified; M16.0 Bilateral primary osteoarthritis of hip; T50.905A Adverse effect of unspecified drugs, medicaments and biological substances, initial encounter; M85.80 Other specified disorders of bone density and structure, unspecified site; H91.90 Unspecified hearing loss, unspecified ear; G89.29 Other chronic pain; Z79.899 Other long term (current) drug therapy; Z87.891 Personal history of nicotine dependence; Z98.890 Other specified postprocedural states; Z86.79 Personal history of other diseases of the circulatory system
CPT/HCPCS: 36410; 36415; 36573; 70450; 71046; 71260; 74176; 74230; 76937; 80048; 80053; 81001; 82550; 82607; 83605; 83735; 84100; 84132; 84153; 84154; 84439; 84443; 84484; 85025; 85027; 85610; 86780; 87040; 87077; 87186; 87502; 93005; 93306; 94760; 96361; 96374; 96375; 99285

== ENCOUNTER 2019-08-07 15:20 | Inpatient (IN) | payer MEDICARE ==
[2019-08-07 16:01] LABS: Basophils # (A) 0.1 k/uL (0-0.2); Basophils % (A) 1 %; Eosinophils # (A) 0.2 k/uL (0-0.7); Eosinophils % (A) 2 %; Lymphocytes # (A) 0.9 k/uL (1.0-4.8); Lymphocytes % (A) 9 %; MCH 31.8 pg (25.0-35.0); MCHC 32.4 g/dL (31.0-37.0); MCV 98.2 fL (80.0-100.0); Mean Platelet Volume 6.8; Monocytes # (A) 0.7 k/uL (0-1.0); Monocytes % (A) 7 %; Neutrophils % (A) 80 %; Platelet Count 362 k/uL (150-450); RBC 2.01 m/uL (4.30-5.90); RDW 15.9 % (11.5-15.5)
--- NOTE | 2019-08-07 16:08 | ED ---
General Adult HPI - General Chief complaint: Recheck/Abnormal Lab/Rx Stated complaint: abn labs Time Seen by Provider: 08/07/19 15:28 Source: patient, EMS Mode of arrival: EMS Limitations: no limitations - History of Present Illness Initial comments: The patient is a 68-year-old male with past medical history of back surgery and chronic left-sided weakness from presents [facility] the emergency [facility]. He was in the emergency department recently for generalized pain and fevers. I was concerned for possible epidural abscess and therefore the patient was sent to [facility]. He does have a PICC line in his arm for which they're administering antibiotics. The patient did have blood work completed which demonstrated that his hemoglobin dropped to 6.4. He denies melanotic stools or hematochezia. Denies any dysuria, hematuria or difficulty voiding. No hemoptysis or hematemesis. The patient has not only blood thinners. No history of anemia in the past. He denies any new weakness. Patient reports that he has been bedbound for the past 3 weeks. Denies any new fevers or chills. There are no other alleviating, precipitating or modifying factors - Related Data Home Medications Medication Instructions Recorded Confirmed Pravastatin Sodium [Pravachol] 20 mg PO HS 09/07/16 08/07/19 amLODIPine [Norvasc] 5 mg PO DAILY 09/07/16 08/07/19 carBAMazepine [TEGretol] 200 mg PO BID 09/07/16 08/07/19 Acetaminophen Tab [Tylenol] 650 mg PO Q6H PRN 08/07/19 08/07/19 Ferrous Sulfate [Iron (65 MG 325 mg PO HS 08/07/19 08/07/19 Elemental)] Lisinopril [Prinivil] 10 mg PO DAILY 08/07/19 08/07/19 Magnesium Hydroxide [Milk of 2,400 mg PO DAILY PRN 08/07/19 08/07/19 Magnesia Concentrate] Methocarbamol [Robaxin-750] 750 mg PO TID@0500,1300,2100 08/07/19 08/07/19 Sennosides/Docusate Sodium [Senna 2 tab PO BID 08/07/19 08/07/19 Plus 8.6-50 mg Tablet] Previous Rx's Medication Instructions Recorded Rifampin 300 mg PO BID@0800,1999 #0 08/09/19 ceFAZolin [Kefzol] 2,000 mg IM TID@0500,1300,2100 #0 08/09/19 oxyCODONE HCL [OxyIR] 5 mg PO Q6H #12 tab 08/09/19 Allergies Allergy/AdvReac Type Severity Reaction Status Date / Time No Known Allergies Allergy Verified 08/07/19 15:50 Review of Systems ROS Statement: Those systems with pertinent positive or pertinent negative responses have been documented in the HPI. ROS Other: All systems not noted in ROS Statement are negative. 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, SPINAL STENOSIS History of Any Multi-Drug Resistant Organisms: None Reported Past Surgical History: Back Surgery Additional Past Surgical History / Comment(s): BRAIN ANEURYSM REPAIR, Past Anesthesia/Blood Transfusion Reactions: No Reported Reaction Past Psychological History: No Psychological Hx Reported Smoking Status: Former smoker Past Alcohol Use History: None Reported Past Drug Use History: None Reported - Past Family History Mother Family Medical History: No Reported History General Exam Limitations: no limitations General appearance: alert, in no apparent distress Head exam: Present: atraumatic, normocephalic, normal inspection Eye exam: Present: normal appearance, PERRL, EOMI. Absent: scleral icterus, conjunctival injection, periorbital swelling ENT exam: Present: normal exam, mucous membranes moist Neck exam: Present: normal inspection. Absent: tenderness, meningismus, lymphadenopathy Respiratory exam: Present: normal lung sounds bilaterally. Absent: respiratory distress, wheezes, rales, rhonchi, stridor Cardiovascular Exam: Present: regular rate, normal rhythm, normal heart sounds. Absent: systolic murmur, diastolic murmur, rubs, gallop, clicks GI/Abdominal exam: Present: soft, normal bowel sounds. Absent: distended, tenderness, guarding, rebound, rigid Rectal exam: Present: normal inspection, heme (-) stool Extremities exam: Present: other (atrophy bilateral lower extremities. Contracture left upper extremity. 4/5 strength right upper extremity). Absent: tenderness, pedal edema, joint swelling, calf tenderness Back exam: Present: normal inspection Neurological exam: Present: alert, oriented X3, CN II-XII intact Psychiatric exam: Present: normal affect, normal mood Skin exam: Present: warm, dry, intact, normal color. Absent: rash Course Vital Signs 08/07/19 08/07/19 08/07/19 15:22 16:00 16:54 Temperature 99.3 F Pulse Rate 92 93 92 Pulse Rate [ Pulse Oximetery ] Respiratory 18 14 16 Rate Blood Pressure 199/81 194/82 177/87 Blood Pressure [Right Arm] O2 Sat by Pulse 97 99 97 Oximetry 08/07/19 08/07/19 08/07/19 17:00 17:30 18:27 Temperature 99.0 F Pulse Rate 89 85 89 Pulse Rate [ Pulse Oximetery ] Respiratory 17 17 16 Rate Blood Pressure 177/87 177/80 156/72 Blood Pressure [Right Arm] O2 Sat by Pulse 96 96 Oximetry 08/07/19 08/07/19 08/07/19 18:33 18:43 19:13 Temperature 99.0 F 99.4 F 98.9 F Pulse Rate 95 92 90 Pulse Rate [ Pulse Oximetery ] Respiratory 17 18 18 Rate Blood Pressure 162/79 158/81 162/86 Blood Pressure [Right Arm] O2 Sat by Pulse 98 Oximetry 08/07/19 08/07/19 21:11 21:40 Temperature 99.6 F 99.3 F Pulse Rate 92 Pulse Rate [ 86 Pulse Oximetery ] Respiratory 20 18 Rate Blood Pressure 177/86 Blood Pressure 186/80 [Right Arm] O2 Sat by Pulse 94 L Oximetry EKG Findings - EKG Comments: EKG Findings:: EKG demonstrates a normal sinus rhythm with a ventricular rate of 97. IL interval 124. QRS 100. QTC 444. There are no acute ST segment elevations or depressions concerning for ischemic changes Medical Decision Making - Medical Decision Making Upon arrival the patient was placed in room 6. A thorough history and physical exam was performed. I did review the patient's transfer packet. I recommended laboratory studies. X-rays demonstrated a hemoglobin of 6.4. INR 1.2. Fecal occult blood testing is negative. I discussed these results with the patient. I discussed diagnosis, differential and treatment options. Last hemoglobin was evaluated yesterday and was 6.9. Hemoglobin on the was 7.4. I did recommend transfusing 1 unit of packed red blood cells. Patient did consent to this. I did recommend hospital admission. I called and discussed the case with Dr. Martinez who accepted admission of the patient. He is requesting that Dr. Sanchez be on consult. Patient remained in stable condition was transported to the floor. - Lab Data Result diagrams: 08/09/19 05:59 08/09/19 05:59 Lab Results 08/07/19 08/07/19 08/07/19 Range/Units 15:40 15:40 15:40 WBC 10.0 (3.8-10.6) k/uL RBC 2.01 L (4.30-5.90) m/uL Hgb 6.4 L* (13.0-17.5) gm/dL Hct 19.8 L* (39.0-53.0) % MCV 98.2 (80.0-100.0) fL MCH 31.8 (25.0-35.0) pg MCHC 32.4 (31.0-37.0) g/dL RDW 15.9 H (11.5-15.5) % Plt Count 362 (150-450) k/uL Neutrophils % 80 % Lymphocytes % 9 % Monocytes % 7 % Eosinophils % 2 % Basophils % 1 % Neutrophils # 8.0 H (1.3-7.7) k/uL Lymphocytes # 0.9 L (1.0-4.8) k/uL Monocytes # 0.7 (0-1.0) k/uL Eosinophils # 0.2 (0-0.7) k/uL Basophils # 0.1 (0-0.2) k/uL PT 12.7 H (9.0-12.0) sec INR 1.2 H (<1.2) APTT 31.5 H (22.0-30.0) sec Sodium 140 (137-145) mmol/L Potassium 4.1 (3.5-5.1) mmol/L Chloride 104 (98-107) mmol/L Carbon Dioxide 32 H (22-30) mmol/L Anion Gap 4 mmol/L BUN 20 (9-20) mg/dL Creatinine 0.90 (0.66-1.25) mg/dL Est GFR (CKD-EPI)AfAm >90 (>60 ml/min/1.73 sqM) Est GFR (CKD-EPI)NonAf 87 (>60 ml/min/1.73 sqM) Glucose 111 H (74-99) mg/dL Calcium 8.0 L (8.4-10.2) mg/dL Total Bilirubin 0.2 (0.2-1.3) mg/dL AST 24 (17-59) U/L ALT <6 L (21-72) U/L Alkaline Phosphatase 92 (38-126) U/L Total Protein 6.7 (6.3-8.2) g/dL Albumin 2.5 L (3.5-5.0) g/dL Stool Occult Blood (Negative) Blood Type Blood Type Recheck Bld Type Recheck Status Antibody Screen Crossmatch Spec Expiration Date 08/07/19 08/07/19 Range/Units 15:40 15:40 WBC (3.8-10.6) k/uL RBC (4.30-5.90) m/uL Hgb (13.0-17.5) gm/dL Hct (39.0-53.0) % MCV (80.0-100.0) fL MCH (25.0-35.0) pg MCHC (31.0-37.0) g/dL RDW (11.5-15.5) % Plt Count (150-450) k/uL Neutrophils % % Lymphocytes % % Monocytes % % Eosinophils % % Basophils % % Neutrophils # (1.3-7.7) k/uL Lymphocytes # (1.0-4.8) k/uL Monocytes # (0-1.0) k/uL Eosinophils # (0-0.7) k/uL Basophils # (0-0.2) k/uL PT (9.0-12.0) sec INR (<1.2) APTT (22.0-30.0) sec Sodium (137-145) mmol/L Potassium (3.5-5.1) mmol/L Chloride (98-107) mmol/L Carbon Dioxide (22-30) mmol/L Anion Gap mmol/L BUN (9-20) mg/dL Creatinine (0.66-1.25) mg/dL Est GFR (CKD-EPI)AfAm (>60 ml/min/1.73 sqM) Est GFR (CKD-EPI)NonAf (>60 ml/min/1.73 sqM) Glucose (74-99) mg/dL Calcium (8.4-10.2) mg/dL Total Bilirubin (0.2-1.3) mg/dL AST (17-59) U/L ALT (21-72) U/L Alkaline Phosphatase (38-126) U/L Total Protein (6.3-8.2) g/dL Albumin (3.5-5.0) g/dL Stool Occult Blood Negative (Negative) Blood Type O Positive Blood Type Recheck O Pos Bld Type Recheck Status No Antibody Screen NEGATIVE Crossmatch See Detail Spec Expiration Date 08/10/2019 - 2340 Disposition Clinical Impression: Anemia Disposition: ADMITTED IP TO THIS [facility] Condition: Stable Is patient prescribed a controlled substance at d/c from ED?: No Decision to Admit Reason: Admit from EC Decision Date: 08/07/19 Decision Time: 19:34
[2019-08-07 16:10] LABS: ALT <6 U/L (21-72); AST 24 U/L (17-59); African American GFR (CKD) >90 (>60 ml/min/1.73 sqM); Albumin 2.5 g/dL (3.5-5.0); Alkaline Phosphatase 92 U/L (38-126); Anion Gap 4 mmol/L; Blood Urea Nitrogen 20 mg/dL (9-20); Carbon Dioxide 32 mmol/L (22-30); Chloride 104 mmol/L (98-107); Glucose 111 mg/dL (74-99); Potassium 4.1 mmol/L (3.5-5.1); Sodium 140 mmol/L (137-145); Total Bilirubin 0.2 mg/dL (0.2-1.3); Total Protein 6.7 g/dL (6.3-8.2)
[2019-08-07] MEDS ORDERED: MORPHINE SULFATE 4 MG/ML SYRINGE IVP STA (16:13)
[2019-08-07 16:22] LABS: HCT 19.8 % (39.0-53.0); HGB 6.4 gm/dL (13.0-17.5); INR 1.2 (<1.2); Partial Thromboplastin Time 31.5 sec (22.0-30.0); Prothrombin Time 12.7 sec (9.0-12.0)
[2019-08-07] MEDS ORDERED: NALOXONE 0.4 MG/ML 1 ML VIAL IV PRN (19:35)
[2019-08-07] MEDS ORDERED: MAGNESIUM HYDROXIDE 2,400 MG/10 ML CUP PO PRN (19:36)
[2019-08-07] MEDS ORDERED: ceFAZolin 1,000 MG VIAL IM SCH (21:00)
[2019-08-07] MEDS: FERROUS SULFATE 325 MG TAB PO SCH (22:34)
[2019-08-07] MEDS: PRAVASTATIN SODIUM 20 MG TAB PO SCH (22:34)
[2019-08-07] MEDS: SENNOSIDES-DOCUSATE SODIUM 1 EACH TAB PO SCH (22:35)
[2019-08-07] MEDS: METHOCARBAMOL 750 MG TAB PO SCH (22:35)
[2019-08-07] MEDS: RIFAMPIN 300 MG CAP PO SCH (22:35)
[2019-08-07] MEDS: carBAMazepine 200 MG TAB PO SCH (22:35)
[2019-08-08 00:27] LABS: Anisocytosis Slight; Basophils # (A) 0.1 k/uL (0-0.2); Basophils % (A) 1 %; Eosinophils # (A) 0.2 k/uL (0-0.7); Eosinophils % (A) 2 %; HCT 22.5 % (39.0-53.0); HGB 7.4 gm/dL (13.0-17.5); Lymphocytes % (A) 11 %; MCH 31.2 pg (25.0-35.0); MCHC 32.8 g/dL (31.0-37.0); MCV 95.2 fL (80.0-100.0); Mean Platelet Volume 6.7; Monocytes # (A) 0.5 k/uL (0-1.0); Monocytes % (A) 6 %; Neutrophils % (A) 79 %; Platelet Count 306 k/uL (150-450); RBC 2.37 m/uL (4.30-5.90); RDW 18.2 % (11.5-15.5); WBC 8.9 k/uL (3.8-10.6)
[2019-08-08] MEDS ORDERED: LABETALOL 200 MG TAB PO STA (00:47)
[2019-08-08] MEDS: METHOCARBAMOL 750 MG TAB PO SCH ×3 (05:06→21:22)
[2019-08-08 07:06] LABS: Anisocytosis Slight; Basophils # (A) 0.3 k/uL (0-0.2); Basophils % (A) 3 %; Eosinophils # (A) 0.1 k/uL (0-0.7); Eosinophils % (A) 1 %; HCT 22.1 % (39.0-53.0); HGB 7.1 gm/dL (13.0-17.5); Lymphocytes # (A) 0.7 k/uL (1.0-4.8); Lymphocytes % (A) 8 %; MCH 30.8 pg (25.0-35.0); MCHC 32.3 g/dL (31.0-37.0); MCV 95.3 fL (80.0-100.0); Monocytes # (A) 0.5 k/uL (0-1.0); Monocytes % (A) 6 %; Neutrophils # (A) 7.2 k/uL (1.3-7.7); Neutrophils % (A) 80 %; Platelet Count 320 k/uL (150-450); RBC 2.32 m/uL (4.30-5.90); RDW 18.6 % (11.5-15.5); WBC 8.9 k/uL (3.8-10.6)
[2019-08-08 07:28] LABS: African American GFR (CKD) >90 (>60 ml/min/1.73 sqM); Anion Gap 7 mmol/L; Blood Urea Nitrogen 18 mg/dL (9-20); Calcium 7.9 mg/dL (8.4-10.2); Carbon Dioxide 28 mmol/L (22-30); Chloride 104 mmol/L (98-107); Glucose 90 mg/dL (74-99); Potassium 3.9 mmol/L (3.5-5.1); Sodium 139 mmol/L (137-145)
[2019-08-08] MEDS: carBAMazepine 200 MG TAB PO SCH ×2 (09:47→21:21)
[2019-08-08] MEDS: SENNOSIDES-DOCUSATE SODIUM 1 EACH TAB PO SCH ×2 (09:47→21:22)
[2019-08-08] MEDS: LISINOPRIL 10 MG TAB PO SCH (09:47)
[2019-08-08] MEDS: RIFAMPIN 300 MG CAP PO SCH ×2 (09:47→21:21)
[2019-08-08] MEDS: amLODIPine 5 MG TAB PO SCH (09:47)
[2019-08-08 10:06] VITALS: BMI 17.7
--- NOTE | 2019-08-08 14:09 | P.CONS ---
History of Present Illness - Reason for Consult Consult date: 08/08/19 Epidural abscess - History of Present Illness This is a 68-year-old male known to ID service as he was recently d uring his hospitalization on 07/16 through 07/23. Patient was transferred [facility] apparently diagnosed with extradural, subdural abscess and was discharged to [facility] to continue rifampin 3 mg every 12 hours for 30 more days and salt 2 g every 8 hours completed on August 19. Patient was discharged from [facility] on July 28. After his adult mission to [facility], Ye catheter was placed on July 31 for urinary retention. Patient had lab work done at the care home found to have a hemoglobin of 6.4 was transferred to [facility] emergency center for evaluation. He has been afebrile. Repeat hemoglobin is 7.1 after 1 unit of packed RBCs. Stool for occult blood was negative. BUN 18 creatinine 0.96. Patient is continued back pain which has been ongoing since last admission. He states that that is very uncomfortable and making his chronic pain worse. Discharge plan is for him to return to [facility]. The patient has had a poor appetite with loss of 10 pounds according to his daughter. He has been seen by dietitian and started on in [place] and requires help with feeding. Review of Systems Constitutional: Reports poor appetite, Reports weight loss, Denies chills, Denies fever Eyes: denies blurred vision, denies pain Ears, nose, mouth and throat: Denies headache, Denies sore throat, Denies vertigo Cardiovascular: Denies chest pain, Denies decreased exercise tolerance, Denies dyspnea on exertion, Denies edema, Denies leg edema, Denies lightheadedness, Denies orthopnea, Denies shortness of breath, Denies syncope Respiratory: Denies cough, Denies cough with sputum, Denies dyspnea, Denies excessive sputum, Denies hemoptysis, Denies home oxygen, Denies respiratory infections, Denies wheezing Gastrointestinal: Reports loss of appetite, Denies abdominal pain, Denies diarrhea, Denies nausea, Denies vomiting Genitourinary: Reports urinary retention Musculoskeletal: Reports gait dysfunction, Reports low back pain, Reports muscle weakness, Denies myalgias Integumentary: Denies pruritus, Denies rash, Denies wounds Neurological: Denies change in mentation, Denies change in speech, Denies numbness, Denies weakness Psychiatric: Denies anxiety, Denies depression Endocrine: Denies fatigue, Denies weight change 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 No illicit drug use, marijuana use. He lives at home with his and there is a dog in the home. His daughter lives down the road from them. 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 Past Drug Use History: None Reported - Past Family History Mother Family Medical History: No Reported History Medications and Allergies Home Medications Medication Instructions Recorded Confirmed Type Pravastatin Sodium [Pravachol] 20 mg PO HS 09/07/16 08/07/19 History amLODIPine [Norvasc] 5 mg PO DAILY 09/07/16 08/07/19 History carBAMazepine [TEGretol] 200 mg PO BID 09/07/16 08/07/19 History Acetaminophen Tab [Tylenol Tab] 650 mg PO Q6H PRN 08/07/19 08/07/19 History Ferrous Sulfate [Feosol] 325 mg PO HS 08/07/19 08/07/19 History Lisinopril [Prinivil] 10 mg PO DAILY 08/07/19 08/07/19 History Magnesium Hydroxide [Milk of 2,400 mg PO DAILY PRN 08/07/19 08/07/19 History Magnesia Concentrate] Methocarbamol [Robaxin-750] 750 mg PO TID@0500,1300,2100 08/07/19 08/07/19 History Rifampin 300 mg PO BID@0800,2000 08/07/19 08/07/19 History Sennosides/Docusate Sodium [Senna 2 tab PO BID 08/07/19 08/07/19 History Plus 8.6-50 mg Tablet] ceFAZolin [Kefzol] 2,000 mg IM TID@0500,1300,2100 08/07/19 08/07/19 History oxyCODONE HCL [OxyIR] 5 mg PO Q6H 08/07/19 08/07/19 History Allergies Allergy/AdvReac Type Severity Reaction Status Date / Time No Known Allergies Allergy Verified 08/07/19 15:50 Physical Exam Vitals: Vital Signs Temp Pulse Pulse Resp BP BP BP 08/08/19 08:00 88 16 08/08/19 07:57 98.1 F 88 16 164/70 08/08/19 03:22 18 08/08/19 02:42 98.9 F 160/70 08/08/19 00:00 98.3 F 88 18 194/84 08/07/19 21:40 99.3 F 86 18 186/80 08/07/19 21:11 99.6 F 92 20 177/86 08/07/19 19:13 98.9 F 90 18 162/86 08/07/19 18:43 99.4 F 92 18 158/81 08/07/19 18:33 99.0 F 95 17 162/79 08/07/19 18:27 99.0 F 89 16 156/72 08/07/19 17:30 85 17 177/80 08/07/19 17:00 89 17 177/87 08/07/19 16:54 92 16 177/87 08/07/19 16:00 93 14 194/82 08/07/19 15:22 99.3 F 92 18 199/81 Pulse Ox 08/08/19 08:00 08/08/19 07:57 97 08/08/19 03:22 08/08/19 02:42 08/08/19 00:00 95 08/07/19 21:40 94 L 08/07/19 21:11 08/07/19 19:13 08/07/19 18:43 08/07/19 18:33 98 08/07/19 18:27 08/07/19 17:30 96 08/07/19 17:00 96 08/07/19 16:54 97 08/07/19 16:00 99 08/07/19 15:22 97 Intake and Output 08/07/19 08/08/19 08/08/19 22:59 06:59 14:59 Intake Total 710 Output Total 950 225 Balance -240 -225 Intake: Amount of Fluid Infused ( 400 ml) Blood Product 310 Rc Irr As1 Unit 310 [id number] Output: Urine 950 225 Other: Voiding Method Indwelling Catheter Indwelling Catheter Weight 58.967 kg 53 kg 53 kg Gen: This is a thin cachectic appearing 68-year-old male. Patient is sitting up in bed and appears to be uncomfortable. No respiratory distress noted. HEENT: Head is atraumatic, normocephalic. Pupils equal, round. Sclerae is anicteric. Oral mucous membranes are extremely dry. Dentition is in fair order for age. NECK: Supple. No JVD. No lymphadenopathy. No thyromegaly. LUNGS: Clear to auscultation. No wheezes or rhonchi. No intercostal retractions. HEART: Regular rate and rhythm. No murmur. ABDOMEN: Flat Soft. Bowel sounds are present. No masses. No tenderness. EXTREMITIES: No pedal edema. No calf tenderness. Foot drop on the left. Dorsalis pedis +2 on the right, +1 on the left. Contracture of the left upper extremity. NEUROLOGICAL: Patient is awake and oriented 3. Cranial nerves 2 through 12 are grossly intact. Results Results: Laboratory Results WBC 8.9 k/uL (3.8-10.6) 08/08/19 05:56 RBC 2.32 m/uL (4.30-5.90) L 08/08/19 05:56 Hgb 7.1 gm/dL (13.0-17.5) L 08/08/19 05:56 Hct 22.1 % (39.0-53.0) L 08/08/19 05:56 MCV 95.3 fL (80.0-100.0) 08/08/19 05:56 MCH 30.8 pg (25.0-35.0) 08/08/19 05:56 MCHC 32.3 g/dL (31.0-37.0) 08/08/19 05:56 RDW 18.6 % (11.5-15.5) H 08/08/19 05:56 Plt Count 320 k/uL (150-450) 08/08/19 05:56 Neutrophils % 80 % 08/08/19 05:56 Lymphocytes % 8 % 08/08/19 05:56 Monocytes % 6 % 08/08/19 05:56 Eosinophils % 1 % 08/08/19 05:56 Basophils % 3 % 08/08/19 05:56 Neutrophils # 7.2 k/uL (1.3-7.7) 08/08/19 05:56 Lymphocytes # 0.7 k/uL (1.0-4.8) L 08/08/19 05:56 Monocytes # 0.5 k/uL (0-1.0) 08/08/19 05:56 Eosinophils # 0.1 k/uL (0-0.7) 08/08/19 05:56 Basophils # 0.3 k/uL (0-0.2) H 08/08/19 05:56 Anisocytosis Slight 08/08/19 05:56 PT 12.7 sec (9.0-12.0) H 08/07/19 15:40 INR 1.2 (<1.2) H 08/07/19 15:40 APTT 31.5 sec (22.0-30.0) H 08/07/19 15:40 Sodium 139 mmol/L (137-145) 08/08/19 05:56 Potassium 3.9 mmol/L (3.5-5.1) 08/08/19 05:56 Chloride 104 mmol/L (98-107) 08/08/19 05:56 Carbon Dioxide 28 mmol/L (22-30) 08/08/19 05:56 Anion Gap 7 mmol/L 08/08/19 05:56 BUN 18 mg/dL (9-20) 08/08/19 05:56 Creatinine 0.96 mg/dL (0.66-1.25) 08/08/19 05:56 Est GFR (CKD-EPI)AfAm >90 (>60 ml/min/1.73 sqM) 08/08/19 05:56 Est GFR (CKD-EPI)NonAf 81 (>60 ml/min/1.73 sqM) 08/08/19 05:56 Glucose 90 mg/dL (74-99) 08/08/19 05:56 Plasma Lactic Acid Chaz 0.6 mmol/L (0.7-2.0) L 08/08/19 00:12 Calcium 7.9 mg/dL (8.4-10.2) L 08/08/19 05:56 Total Bilirubin 0.2 mg/dL (0.2-1.3) 08/07/19 15:40 AST 24 U/L (17-59) 08/07/19 15:40 ALT <6 U/L (21-72) L 08/07/19 15:40 Alkaline Phosphatase 92 U/L (38-126) 08/07/19 15:40 Total Protein 6.7 g/dL (6.3-8.2) 08/07/19 15:40 Albumin 2.5 g/dL (3.5-5.0) L 08/07/19 15:40 Stool Occult Blood Negative (Negative) 08/07/19 15:40 Blood Type O Positive 08/07/19 15:40 Blood Type Recheck O Pos 08/07/19 15:40 Bld Type Recheck Status No 08/07/19 15:40 Antibody Screen NEGATIVE 08/07/19 15:40 Crossmatch See Detail 08/07/19 15:40 Spec Expiration Date 08/10/2019233908/07/19 15:40 CBC & Chem 7: 08/08/19 05:56 08/08/19 05:56 Labs: Abnormal Lab Results - Last 24 Hours (Table) 08/07/19 08/07/19 08/07/19 Range/Units 15:40 15:40 15:40 RBC 2.01 L (4.30-5.90) m/uL Hgb 6.4 L* (13.0-17.5) gm/dL Hct 19.8 L* (39.0-53.0) % RDW 15.9 H (11.5-15.5) % Neutrophils # 8.0 H (1.3-7.7) k/uL Lymphocytes # 0.9 L (1.0-4.8) k/uL Basophils # (0-0.2) k/uL PT 12.7 H (9.0-12.0) sec INR 1.2 H (<1.2) APTT 31.5 H (22.0-30.0) sec Carbon Dioxide 32 H (22-30) mmol/L Glucose 111 H (74-99) mg/dL Plasma Lactic Acid Chaz (0.7-2.0) mmol/L Calcium 8.0 L (8.4-10.2) mg/dL ALT <6 L (21-72) U/L Albumin 2.5 L (3.5-5.0) g/dL Crossmatch 08/07/19 08/08/19 08/08/19 Range/Units 15:40 00:12 00:12 RBC 2.37 L (4.30-5.90) m/uL Hgb 7.4 L (13.0-17.5) gm/dL Hct 22.5 L (39.0-53.0) % RDW 18.2 H (11.5-15.5) % Neutrophils # (1.3-7.7) k/uL Lymphocytes # (1.0-4.8) k/uL Basophils # (0-0.2) k/uL PT (9.0-12.0) sec INR (<1.2) APTT (22.0-30.0) sec Carbon Dioxide (22-30) mmol/L Glucose (74-99) mg/dL Plasma Lactic Acid Chaz 0.6 L (0.7-2.0) mmol/L Calcium (8.4-10.2) mg/dL ALT (21-72) U/L Albumin (3.5-5.0) g/dL Crossmatch See Detail 08/08/19 08/08/19 Range/Units 05:56 05:56 RBC 2.32 L (4.30-5.90) m/uL Hgb 7.1 L (13.0-17.5) gm/dL Hct 22.1 L (39.0-53.0) % RDW 18.6 H (11.5-15.5) % Neutrophils # (1.3-7.7) k/uL Lymphocytes # 0.7 L (1.0-4.8) k/uL Basophils # 0.3 H (0-0.2) k/uL PT (9.0-12.0) sec INR (<1.2) APTT (22.0-30.0) sec Carbon Dioxide (22-30) mmol/L Glucose (74-99) mg/dL Plasma Lactic Acid Chaz (0.7-2.0) mmol/L Calcium 7.9 L (8.4-10.2) mg/dL ALT (21-72) U/L Albumin (3.5-5.0) g/dL Crossmatch Assessment and Plan Plan: This is a 68-year-old male who presented to the hospital due to anemia and is status post transfusion 1 unit of packed RBCs. He was recently treated at [facility] transferred [facility] for subdural ab scess and is on probiotics the form of Kefzol and rifampin at [facility]. Albumin was will be continued. Continue supportive care. Further recommendations as patient progresses. Impression and plan of care have been directed as dictated by the signing physician. Gabriella Ty nurse practitioner acting as scribe for signing physician.
--- NOTE | 2019-08-08 15:20 | P.CON ---
Consult Note - . Consult date: 08/08/19 Assessment/Plan:: This is a 68-year-old male known to ID service as he was recently during his hospitalization on 07/16 through 07/23. Patient was transferred [facility] apparently diagnosed with extradural, subdural abscess and was di scharged to [facility] to continue rifampin 3 mg every 12 hours for 30 more days and salt 2 g every 8 hours completed on August 19. Patient was discharged from [facility] on July 28. After his adult mission to [facility], Ye catheter was placed on July 31 for urinary retention. Patient had lab work done at the senior care found to have a hemoglobin of 6.4 was transferred to [facility] emergency center for evaluation. He has been afebrile. Repeat hemoglobin is 7.1 after 1 unit of packed RBCs. Stool for occult blood was negative. BUN 18 creatinine 0.96. Patient is continued back pain which has been ongoing since last admission. He states that that is very uncomfortable and making his chronic pain worse. Discharge plan is for him to return to [facility]. The patient has had a poor appetite with loss of 10 pounds according to his daughter. He has been seen by dietitian and started on ensure and requires help with feeding. Please see the consult note as dictated by M[employer]ING PL[employer] OPERATOR Gabriella Ty . There is some data from the outside hospital however it is quite limited in that we aren't able to determine if any particular procedures were performed. On the exam the patient has no new surgical scars and consequently does not appear that a surgical intervention regarding the concerns to epidural or subdural abscess. At this facility before his transfer MSSA was isolated and he was on high-dose of his own at the time of the transfer. Apparently this is continuing at this point in time. He continues to have severe and ongoing back pain which is not new. We have asked the nursing staff and air mattress can be applied to his bed to improve his discomfort. Is noted is a very poor historian and not able to get any further interventions. Were also trying to determine if it the other facility a KYRA was performed given his persistent and ongoing bacteremia. Cultures are pending at this facility but apparently were negative at the outside facility. At the time of admission his hemoglobin was down to 6.4. No evidence of any acute blood loss is occurring possibly in the basis of his significant underlying infection and poor nutritional intake. We'll evaluate inflammatory markers to see if there is any improvement of his significant underlying infection. And again outside able be helpful to help navigate the next steps in his care. He still needs about 4 weeks diabetic therapy for his high-grade MSSA sepsis from his recent stay. I agree with the evaluation assesment and plan as dicatated by M[employer]ING PL[employer] OPERATOR Mrs. Gabriella Ty.
--- NOTE | 2019-08-08 20:37 | P.HPIM ---
History of Present Illness H&P Date: 08/08/19 Chief Complaint: Hemoglobin 6.4 History of presenting complaint: This is a pleasant 68-year-old patient who follows Dr. Rohan Martinez. Currently in the [facility] under Dr. Cruz. Patient was recently in the hospital from July 16 through July 23. Patient was transferred to [facility] was diagnosed with subdural abscess and discharged to [facility] reported on and to complete a course of IV antibiotics. Patient had been positive for MSSA. Patient's out of hemoglobin of 6.4 and was sent here for further evaluation. No report of any black stools. Patient has chronic low back pain. 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 Has left foot drop. Does get a leg brace. Appetite is not very good. Review of systems: GEN.: Tired, decreased appetite EYES: None HEENT: Decreased hearing NECK: None RESPIRATORY: None CARDIOVASCULAR: None GASTROINTESTINAL: None GENITOURINARY: Ye catheter MUSCULOSKELETAL: Chronic back pain LYMPHATICS: None HEMATOLOGICAL: None PSYCHIATRY: None NEUROLOGICAL: Left-sided weakness, more in the left leg than the arm Past medical history to include: Hyperlipidemia, hypertension, brain aneurysm repair in 1981 with residual left- sided weakness, spinal stenosis, left foot drop, subdural abscess Social history: Currently at [facility] reported on for rehab, patient was a smoker spoke a pack-a-day stopped 37 years ago. . Retired from work construction. Family history: Reviewed, noncontributory to presentation Physical examination: VITAL SIGNS: 99.3, 92, 18, 199/81, 97% room air] GENERAL: BMI 17.8, laying in bed, awake. EYES: Pupils equal. Conjunctiva palel. HEENT: External appearance of nose and ears normal, oral cavity grossly normal, wearing hearing aid. NECK: JVD not raised; masses not palpable. HEART: First and second heart sounds are normal; no edema. LUNGS: Respiratory rate normal; clear to auscultation. ABDOMEN: Soft, nontender, liver spleen not palpable, no masses palpable. PSYCH: Alert and oriented x3; mood and affect normal. NEUROLOGICAL: [Cranial nerves grossly intact; no facial asymmetry, power in the left leg 4 x 5. Part of the left arm 1 x 5 LYMPHATICS: No lymph nodes palpable in the axilla and neck MUSCULAR skeletal: Loss of subcutaneous fat and muscle mass INVESTIGATIONS, reviewed in the clinical context: White count and hemoglobin 6. 4 repeat 7.1 platelets 362 potassium 4.1 and creatinine 0.90 albumin 2.5 Stool occult blood-negative Assessment: -Acute symptomatic normocytic anemia, likely from acute on top of chronic anemia of chronic disease. Patient rather malnourished and is a contribution of decreased oral intake. Had being treated for subdural abscess also contributing to his anemia. No obvious evidence of any GI bleed. -Moderate protein calorie malnutrition from decreased oral intake -Suspect underlying anemia of chronic disease -Recent subdural abscess that was drained, being treated with IV Ancef and rifampin -Hard of hearing with hearing aids -Chronic left-sided weakness from prior brain aneurysm repair, with left common week and then the leg -Chronic left foot drop -Essential hypertension -Hyperlipidemia -Chronic low back pain, from arthritis Plan: Patient was given a unit of blood. Home medications resumed. Dr. Sanchez was consulted. We'll send off iron studies. And B12 and folate. We'll also consul t GI. Care was discussed with the patient. Dr. Martinez will resume the care of the patient tomorrow. We'll add nutritional supplement. 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, SPINAL STENOSIS History of Any Multi-Drug Resistant Organisms: None Reported Past Surgical History: Back Surgery Additional Past Surgical History / Comment(s): BRAIN ANEURYSM REPAIR, Past Anesthesia/Blood Transfusion Reactions: No Reported Reaction Past Psychological History: No Psychological Hx Reported Smoking Status: Former smoker Past Alcohol Use History: None Reported Past Drug Use History: None Reported - Past Family History Mother Family Medical History: No Reported History Medications and Allergies Home Medications Medication Instructions Recorded Confirmed Type Pravastatin Sodium [Pravachol] 20 mg PO HS 09/07/16 08/07/19 History amLODIPine [Norvasc] 5 mg PO DAILY 09/07/16 08/07/19 History carBAMazepine [TEGretol] 200 mg PO BID 09/07/16 08/07/19 History Acetaminophen Tab [Tylenol Tab] 650 mg PO Q6H PRN 08/07/19 08/07/19 History Ferrous Sulfate [Feosol] 325 mg PO HS 08/07/19 08/07/19 History Lisinopril [Prinivil] 10 mg PO DAILY 08/07/19 08/07/19 History Magnesium Hydroxide [Milk of 2,400 mg PO DAILY PRN 08/07/19 08/07/19 History Magnesia Concentrate] Methocarbamol [Robaxin-750] 750 mg PO TID@0500,1300,2100 08/07/19 08/07/19 History Rifampin 300 mg PO BID@0800,2000 08/07/19 08/07/19 History Sennosides/Docusate Sodium [Senna 2 tab PO BID 08/07/19 08/07/19 History Plus 8.6-50 mg Tablet] ceFAZolin [Kefzol] 2,000 mg IM TID@0500,1300,2100 08/07/19 08/07/19 History oxyCODONE HCL [OxyIR] 5 mg PO Q6H 08/07/19 08/07/19 History Allergies Allergy/AdvReac Type Severity Reaction Status Date / Time No Known Allergies Allergy Verified 08/07/19 15:50 Physical Exam Vitals: Vital Signs Temp Pulse Pulse Resp BP BP BP 08/08/19 08:00 88 16 08/08/19 07:57 98.1 F 88 16 164/70 08/08/19 03:22 18 08/08/19 02:42 98.9 F 160/70 08/08/19 00:00 98.3 F 88 18 194/84 08/07/19 21:40 99.3 F 86 18 186/80 08/07/19 21:11 99.6 F 92 20 177/86 08/07/19 19:13 98.9 F 90 18 162/86 08/07/19 18:43 99.4 F 92 18 158/81 08/07/19 18:33 99.0 F 95 17 162/79 08/07/19 18:27 99.0 F 89 16 156/72 08/07/19 17:30 85 17 177/80 08/07/19 17:00 89 17 177/87 08/07/19 16:54 92 16 177/87 08/07/19 16:00 93 14 194/82 08/07/19 15:22 99.3 F 92 18 199/81 Pulse Ox 08/08/19 08:00 08/08/19 07:57 97 08/08/19 03:22 10/31/19 02:42 08/08/19 00:00 95 08/07/19 21:40 94 L 08/07/19 21:11 08/07/19 19:13 08/07/19 18:43 08/07/19 18:33 98 08/07/19 18:27 08/07/19 17:30 96 08/07/19 17:00 96 08/07/19 16:54 97 08/07/19 16:00 99 08/07/19 15:22 97 Intake and Output 08/07/19 08/08/19 08/08/19 22:59 06:59 14:59 Intake Total 710 Output Total 950 225 Balance -240 -225 Intake: Amount of Fluid Infused ( 400 ml) Blood Product 310 Rc Irr As1 Unit 310 [id number] Output: Urine 950 225 Other: Voiding Method Indwelling Catheter Indwelling Catheter Weight 58.967 kg 53 kg Results CBC & Chem 7: 08/08/19 05:56 08/08/19 05:56 Labs: Abnormal Lab Results - Last 24 Hours (Table) 08/07/19 08/07/19 08/07/19 Range/Units 15:40 15:40 15:40 RBC 2.01 L (4.30-5.90) m/uL Hgb 6.4 L* (13.0-17.5) gm/dL Hct 19.8 L* (39.0-53.0) % RDW 15.9 H (11.5-15.5) % Neutrophils # 8.0 H (1.3-7.7) k/uL Lymphocytes # 0.9 L (1.0-4.8) k/uL Basophils # (0-0.2) k/uL PT 12.7 H (9.0-12.0) sec INR 1.2 H (<1.2) APTT 31.5 H (22.0-30.0) sec Carbon Dioxide 32 H (22-30) mmol/L Glucose 111 H (74-99) mg/dL Plasma Lactic Acid Chaz (0.7-2.0) mmol/L Calcium 8.0 L (8.4-10.2) mg/dL ALT <6 L (21-72) U/L Albumin 2.5 L (3.5-5.0) g/dL Crossmatch 08/07/19 08/08/19 08/08/19 Range/Units 15:40 00:12 00:12 RBC 2.37 L (4.30-5.90) m/uL Hgb 7.4 L (13.0-17.5) gm/dL Hct 22.5 L (39.0-53.0) % RDW 18.2 H (11.5-15.5) % Neutrophils # (1.3-7.7) k/uL Lymphocytes # (1.0-4.8) k/uL Basophils # (0-0.2) k/uL PT (9.0-12.0) sec INR (<1.2) APTT (22.0-30.0) sec Carbon Dioxide (22-30) mmol/L Glucose (74-99) mg/dL Plasma Lactic Acid Chaz 0.6 L (0.7-2.0) mmol/L Calcium (8.4-10.2) mg/dL ALT (21-72) U/L Albumin (3.5-5.0) g/dL Crossmatch See Detail 08/08/19 08/08/19 Range/Units 05:56 05:56 RBC 2.32 L (4.30-5.90) m/uL Hgb 7.1 L (13.0-17.5) gm/dL Hct 22.1 L (39.0-53.0) % RDW 18.6 H (11.5-15.5) % Neutrophils # (1.3-7.7) k/uL Lymphocytes # 0.7 L (1.0-4.8) k/uL Basophils # 0.3 H (0-0.2) k/uL PT (9.0-12.0) sec INR (<1.2) APTT (22.0-30.0) sec Carbon Dioxide (22-30) mmol/L Glucose (74-99) mg/dL Plasma Lactic Acid Chaz (0.7-2.0) mmol/L Calcium 7.9 L (8.4-10.2) mg/dL ALT (21-72) U/L Albumin (3.5-5.0) g/dL Crossmatch Thrombosis Risk Factor Assmnt - Choose All That Apply Any of the Below Risk Factors Present?: Yes Each Factor Represents 1 point: Medical pt on bed rest Other Risk Factors: Yes Each Risk Factor Represents 2 Points: Age 61-74 years, Patient confined to bed Thrombosis Risk Factor Assessment Total Risk Factor Score: 5 Thrombosis Risk Factor Assessment Level: High Risk
[2019-08-08] MEDS: ENOXAPARIN 40 MG/0.4 ML SYRINGE SQ SCH (21:21)
[2019-08-08] MEDS: FERROUS SULFATE 325 MG TAB PO SCH (21:21)
[2019-08-08] MEDS: PRAVASTATIN SODIUM 20 MG TAB PO SCH (21:22)
[2019-08-08 21:56] VITALS: RESP 18
[2019-08-08] MEDS ORDERED: amLODIPine 5 MG TAB PO STA (23:02)
[2019-08-09] MEDS: METHOCARBAMOL 750 MG TAB PO SCH (04:36)
[2019-08-09 08:48] LABS: African American GFR (CKD) >90 (>60 ml/min/1.73 sqM); Anion Gap 7 mmol/L; Blood Urea Nitrogen 19 mg/dL (9-20); Carbon Dioxide 30 mmol/L (22-30); Chloride 102 mmol/L (98-107); Glucose 99 mg/dL (74-99); Potassium 4.1 mmol/L (3.5-5.1); Sodium 139 mmol/L (137-145)
[2019-08-09 08:56] LABS: Anisocytosis Slight; Basophils % (A) 0 %; Eosinophils # (A) 0.1 k/uL (0-0.7); Eosinophils % (A) 1 %; HCT 24.1 % (39.0-53.0); HGB 7.8 gm/dL (13.0-17.5); Lymphocytes % (A) 9 %; MCH 31.4 pg (25.0-35.0); MCHC 32.5 g/dL (31.0-37.0); MCV 96.5 fL (80.0-100.0); Macrocytosis Slight; Mean Platelet Volume 6.4; Monocytes # (A) 0.6 k/uL (0-1.0); Monocytes % (A) 6 %; Neutrophils # (A) 8.4 k/uL (1.3-7.7); Neutrophils % (A) 82 %; Platelet Count 323 k/uL (150-450); RDW 17.7 % (11.5-15.5); WBC 10.2 k/uL (3.8-10.6)
[2019-08-09 09:06] VITALS: BP 183/84; PULSE 82; TEMP 98.9
[2019-08-09] MEDS: ENOXAPARIN 40 MG/0.4 ML SYRINGE SQ SCH (09:07)
[2019-08-09] MEDS: carBAMazepine 200 MG TAB PO SCH (09:07)
[2019-08-09] MEDS: amLODIPine 5 MG TAB PO SCH (09:07)
[2019-08-09] MEDS: RIFAMPIN 300 MG CAP PO SCH (09:07)
[2019-08-09] MEDS: SENNOSIDES-DOCUSATE SODIUM 1 EACH TAB PO SCH (09:07)
[2019-08-09] MEDS: LISINOPRIL 10 MG TAB PO SCH (09:08)
--- NOTE | 2019-08-09 09:45 | P.DS ---
Providers Date of admission: 08/07/19 19:35 Expected date of discharge: 08/09/19 Attending physician: Rohan Martinez Consults: 08/07/19 21:29 Consult Physician Stat Consulting Provider: Eliezer Sanchez Consult Reason/Comments: epidural abscess Do you want consulting provider notified?: Yes, Notify in am 08/08/19 20:39 Consult Physician Routine Consulting Provider: Neda Montoya Consult Reason/Comments: Anemia Do you want consulting provider notified?: Yes Primary care physician: [facility] Course: Final Diagnoses -Anemia, asymptomatic, status post 1 unit of packed RBCs, suspect chronic secondary to prior sepsis, infection -History of Persistent Bacteremia -MSSA Sepsis secondary to epidural abscess, on rifampin and Ancef -Hx of Lung mass per chest x-ray, ruled out per pulmonary's review of CT with no bronchoscopy/bx recommended at this time. -Chronic ongoing back pain, history of back surgery -Prostatomegaly, 5.9 cm, PSA 2.7 -Degenerative changes bilateral hips with mild endplate deformity of L1, erosive change right iliac bone. -Osteopenia -History of nicotine dependence -History of prior brain aneurysm, repaired, CVA with residual left-sided deficit s -Hypertension -Hyperlipidemia -Gait dysfunction, uses brace -Chronic renal failure, stage II -Moderate protein calorie malnutrition, BMI 20.6 -HX of 9 mm subpleural pulmonary nodule right lower lobe, follow-up outpatient - HX of mildly enlarged mediastinal lymph nodes 2, 1.2 cm and 1.1 cm, follow-up outpatient -Pulmonary hypertension Hospital course: This is a 68-year-old gentleman recently admitted to the hospital, transferred to [facility], diagnosed with subdural abscess and discharged to subacute rehab ,[facility], ,subacute rehab for IV antibiotic therapy. Hemoglobin 6.4, with no report of active bleeding, transferred to the hospital, received 1 unit of packed RBCs with significant clinical improvement. Continued on IV antibiotic therapy, T-max 99.8, WBC within normal limits. Significant clinical improvement. Cleared by infectious disease for discharge back to subacute rehab in a stable condition with guarded prognosis. Anemia felt to be chronic secondary to prior sepsis, infection. Patient's home med regimen currently consists of FeSO4. - Exam GENERAL: Sitting up in bed, no acute distress CARDIOVASCULAR: S1, S2 regular. No murmur RESPIRATION: Breath sounds diminished in the bases. No rhonchi or crackles. ABDOMEN: Soft, nontender . No guarding. no masses palpable. Bowel sounds heard. NERVOUS SYSTEM: Cranial N 2-12 grossly normal. Speech fluent, appropriate .Left arm contracted, left leg rigid, left foot drop-prior CVA. The impression and plan of care has been dictated as directed. : I performed a history and examination of this patient, discussed the same with the dictator. I agree with the dictator's note ,documented as a scribe. Any additional findings or plans will be noted. Patient Condition at Discharge: Stable Plan - Discharge Summary New Discharge Prescriptions: Continue carBAMazepine [TEGretol] 200 mg PO BID amLODIPine [Norvasc] 5 mg PO DAILY Pravastatin Sodium [Pravachol] 20 mg PO HS Acetaminophen Tab [Tylenol] 650 mg PO Q6H PRN PRN Reason: Fever And/ Or Pain oxyCODONE HCL [OxyIR] 5 mg PO Q6H Methocarbamol [Robaxin-750] 750 mg PO TID@0500,1300,2100 Sennosides/Docusate Sodium [Senna Plus 8.6-50 mg Tablet] 2 tab PO BID Lisinopril [Prinivil] 10 mg PO DAILY Ferrous Sulfate [Iron (65 MG Elemental)] 325 mg PO HS Magnesium Hydroxide [Milk of Magnesia Concentrate] 2,400 mg PO DAILY PRN PRN Reason: Constipation Rifampin 300 mg PO BID@0800,2000 #0 ceFAZolin [Kefzol] 2,000 mg IM TID@0500,1300,2100 #0 Discharge Medication List Pravastatin Sodium [Pravachol] 20 mg PO HS 09/07/16 [History] amLODIPine [Norvasc] 5 mg PO DAILY 09/07/16 [History] carBAMazepine [TEGretol] 200 mg PO BID 09/07/16 [History] Acetaminophen Tab [Tylenol] 650 mg PO Q6H PRN 08/07/19 [History] Ferrous Sulfate [Iron (65 MG Elemental)] 325 mg PO HS 08/07/19 [History] Lisinopril [Prinivil] 10 mg PO DAILY 08/07/19 [History] Magnesium Hydroxide [Milk of Magnesia Concentrate] 2,400 mg PO DAILY PRN 08/07/19 [History] Methocarbamol [Robaxin-750] 750 mg PO TID@0500,1300,2100 08/07/19 [History] Sennosides/Docusate Sodium [Senna Plus 8.6-50 mg Tablet] 2 tab PO BID 08/07/19 [History] oxyCODONE HCL [OxyIR] 5 mg PO Q6H 08/07/19 [History] Rifampin 300 mg PO BID@0800,2000 #0 08/09/19 [Rx] ceFAZolin [Kefzol] 2,000 mg IM TID@0500,1300,2100 #0 08/09/19 [Rx] Follow up Appointment(s)/Referral(s): Avel Cruz DO [Primary Care Provider] - 3 Days (while at [facility]) Rohan Martinez DO [Doctor of Osteopathic Medicine] - 1 Week (after dc from sub acute rehab) Eliezer Sanchez MD [STAFF PHYSICIAN] - 2 Weeks [facility] Edvin Jiang [NON-STAFF] - 1 Week Neda Montoya MD [STAFF PHYSICIAN] - 1 Week Patient Instructions/Handouts: Iron Rich Diet (DC), Anemia (DC) Activity/Diet/Wound Care/Special Instructions: Medi-PH cbc,bmp in 3 days Discharge Disposition: TRANSFER TO SNF/F
[2019-08-09 12:07] LABS: % Iron Saturation 10.56 (15.00-50.00); Ferritin 801.5 ng/mL (22.0-322.0)
== END 2019-08-09 11:42 | DRG 811 ==
LOC: EC 15:20 → 3SCARD 19:35
PROVIDERS: ADMIT Family Medicine; ATTEND Family Medicine
DX: D64.9 Anemia, unspecified (principal); G06.2 Extradural and subdural abscess, unspecified; E44.0 Moderate protein-calorie malnutrition; I69.154 Hemiplegia and hemiparesis following nontraumatic intracerebral hemorrhage affecting left non-dominant side; I27.20 Pulmonary hypertension, unspecified; E78.5 Hyperlipidemia, unspecified; G89.29 Other chronic pain; H91.93 Unspecified hearing loss, bilateral; I12.9 Hypertensive chronic kidney disease with stage 1 through stage 4 chronic kidney disease, or unspecified chronic kidney disease; M16.0 Bilateral primary osteoarthritis of hip; M85.80 Other specified disorders of bone density and structure, unspecified site; N18.2 Chronic kidney disease, stage 2 (mild); N40.1 Benign prostatic hyperplasia with lower urinary tract symptoms; R33.8 Other retention of urine; R26.9 Unspecified abnormalities of gait and mobility; M48.061 Spinal stenosis, lumbar region without neurogenic claudication; M47.9 Spondylosis, unspecified; M21.372 Foot drop, left foot; Z74.01 Bed confinement status; Z79.899 Other long term (current) drug therapy; Z79.891 Long term (current) use of opiate analgesic; Z87.891 Personal history of nicotine dependence; Z68.20 Body mass index [BMI] 20.0-20.9, adult
CPT/HCPCS: 36415; 36430; 80048; 80053; 82272; 82607; 82728; 82746; 83540; 83550; 83605; 85025; 85610; 85730; 86850; 86900; 86901; 86920; 93005; 96374; 99285

== ENCOUNTER 2019-08-13 16:02 | Emergency (ER) | payer MEDICARE ==
[2019-08-13 17:42] LABS: Anisocytosis Slight; Basophils # (A) 0.2 k/uL (0-0.2); Basophils % (A) 2 %; Eosinophils # (A) 0.2 k/uL (0-0.7); Eosinophils % (A) 2 %; Lymphocytes # (A) 0.9 k/uL (1.0-4.8); Lymphocytes % (A) 8 %; MCH 31.2 pg (25.0-35.0); MCHC 32.5 g/dL (31.0-37.0); MCV 96.1 fL (80.0-100.0); Mean Platelet Volume 7.1; Monocytes # (A) 0.6 k/uL (0-1.0); Monocytes % (A) 6 %; Neutrophils # (A) 8.8 k/uL (1.3-7.7); Neutrophils % (A) 82 %; Platelet Count 302 k/uL (150-450); RBC 2.19 m/uL (4.30-5.90); RDW 17.1 % (11.5-15.5); WBC 10.8 k/uL (3.8-10.6)
[2019-08-13 17:51] LABS: Albumin 2.4 g/dL (3.5-5.0); Calcium 7.8 mg/dL (8.4-10.2); Potassium 4.2 mmol/L (3.5-5.1); Total Bilirubin 0.2 mg/dL (0.2-1.3); Total Protein 6.8 g/dL (6.3-8.2)
[2019-08-13 18:00] LABS: HGB 6.8 gm/dL (13.0-17.5); INR 1.4 (<1.2); Partial Thromboplastin Time 31.4 sec (22.0-30.0); Prothrombin Time 13.9 sec (9.0-12.0)
[2019-08-13] MEDS ORDERED: SODIUM CHLORIDE 0.9% 1,000 ML IV ONE (18:12)
--- NOTE | 2019-08-13 19:14 | CT ---
EXAMINATION TYPE: CT abdomen pelvis w con DATE OF EXAM: 08/13/2019 COMPARISON: 07/16/2019 HISTORY: Abdominal pain, distention and constipation. CT DLP: 996.4 mGycm Automated exposure control for dose reduction was used. TECHNIQUE: Helical acquisition of images was performed from the lung bases through the pelvis. CONTRAST: Performed without Oral Contrast and with IV Contrast, patient injected with 100 mL of Isovue 300. FINDINGS: There are bilateral pleural effusions and larger on the left side. There is left and right basilar at electasis. Heart size is normal. Stomach is intact. Spleen is intact. There is no sign of pancreatic mass. The bile ducts are not dila yolanda. Gallbladder appears normal. There is large amount of fecal material retained throughout the anjelica l. This extends down to the rectum. Rectum measures 8 cm. There is no inguinal hernia. There is no si gn of free air. There is no ascites. There is no adrenal mass. Kidneys show satisfactory contrast opacification. There is no hydronephrosi s. Ureters are not dilated. Abdominal aorta is atheromatous. There is multilevel posterior lumbar spi ne fusion surgery. There is Ye catheter in the urinary bladder. Bladder is empty. IMPRESSION: BILATERAL PLEURAL EFFUSIONS ARE NEW COMPARED TO OLD EXAM. THERE IS SIGNIFICANT CONSTIPATION THAT IS N EW COMPARED TO OLD EXAM.
[2019-08-13] MEDS ORDERED: NA PHOS,M-B/NA PHOS,DI-BA 133 ML ENEMA RECTAL STA (19:36)
--- NOTE | 2019-08-13 19:57 | ED ---
General Adult HPI - General Chief complaint: Recheck/Abnormal Lab/Rx Stated complaint: low hemoglobin Time Seen by Provider: 08/13/19 16:15 Source: EMS Mode of arrival: EMS Limitations: no limitations - History of Present Illness Initial comments: The patient is a 68-year-old male with past medical history of aneurysm with chronic left-sided weakness, epidural abscess on current antibiotic therapy who presents to the emergency department with anemia. The patient was recently admitted to the hospital for anemia workup. He was transfused 1 unit of blood at that time. Evaluation was performed for the anemia was attributed to chronic disease and bacteremia. The patient has had intermittent blood draws since his hospital discharge in his hemoglobin remained stable in the sevens. Today the patient did have a lab draw which indicated that his hemoglobin had dropped to 6.4. He was then transferred to the ER for blood transfusion. He does report to acute weakness and increased sleepiness. Denies any chest pain or shortness of breath. The patient does admit to abdominal distention and states his last bowel movement was 3 days ago. He was placed on oxycodone for his worsening neck, back and leg pain. He is unsure if he is taking any bowel stimulation. Reports he is passing gas. The patient has a chronic indwelling Ye. No reported gross hematuria. Denies any melanotic stools or hematochezia. There are no other alleviating, precipitating or modifying factors - Related Data Home Medications Medication Instructions Recorded Confirmed Pravastatin Sodium [Pravachol] 20 mg PO HS 09/07/16 08/13/19 amLODIPine [Norvasc] 5 mg PO DAILY 09/07/16 08/13/19 carBAMazepine [TEGretol] 200 mg PO BID@0800,2000 09/07/16 08/13/19 Acetaminophen Tab [Tylenol] 650 mg PO Q6H PRN 08/07/19 08/13/19 Ferrous Sulfate [Iron (65 MG 325 mg PO HS 08/07/19 08/13/19 Elemental)] Lisinopril [Prinivil] 10 mg PO DAILY 08/07/19 08/13/19 Magnesium Hydroxide [Milk of 2,400 mg PO DAILY PRN 08/07/19 08/13/19 Magnesia Concentrate] Methocarbamol [Robaxin-750] 750 mg PO TID@0500,1300,2100 08/07/19 08/13/19 Sennosides/Docusate Sodium [Senna 2 tab PO BID@0800,199908/07/19 08/13/19 Plus 8.6-50 mg Tablet] ceFAZolin [Kefzol] 2 gm IV TID@0500,1300,2100 08/13/19 08/13/19 Previous Rx's Medication Instructions Recorded Rifampin 300 mg PO BID@0800,1999 #0 08/09/19 oxyCODONE HCL [OxyIR] 5 mg PO Q6H #12 tab 08/09/19 Polyethylene Glycol 3350 [Miralax] 17 gm PO BID #527 gm 08/13/19 Allergies Allergy/AdvReac Type Severity Reaction Status Date / Time No Known Allergies Allergy Verified 08/13/19 17:12 Review of Systems ROS Statement: Those systems with pertinent positive or pertinent negative responses have been documented in the HPI. ROS Other: All systems not noted in ROS Statement are negative. 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, SPINAL STENOSIS History of Any Multi-Drug Resistant Organisms: None Reported Past Surgical History: Back Surgery Additional Past Surgical History / Comment(s): BRAIN ANEURYSM REPAIR, Past Anesthesia/Blood Transfusion Reactions: No Reported Reaction Past Psychological History: No Psychological Hx Reported Smoking Status: Former smoker Past Alcohol Use History: None Reported Past Drug Use History: None Reported - Past Family History Mother Family Medical History: No Reported History General Exam Limitations: no limitations General appearance: alert, in no apparent distress Head exam: Present: atraumatic, normocephalic Eye exam: Present: PERRL, EOMI ENT exam: Present: normal exam Neck exam: Present: tenderness Respiratory exam: Present: normal lung sounds bilaterally, rales. Absent: respiratory distress, wheezes, rhonchi Cardiovascular Exam: Present: regular rate, normal rhythm. Absent: systolic murmur GI/Abdominal exam: Present: soft, distended, diminished bowel sounds. Absent: tenderness, guarding, rebound, rigid Extremities exam: Present: other (contactures b/l UE with left greater than right) Back exam: Present: paraspinal tenderness Neurological exam: Present: alert, oriented X3, other (non-ambulatory) Psychiatric exam: Present: normal affect, normal mood Skin exam: Present: warm, dry, pallor Course Vital Signs 08/13/19 08/13/19 08/13/19 16:12 19:03 19:09 Temperature 98.5 F 98.6 F Pulse Rate 89 85 Respiratory 18 18 Rate Blood Pressure 166/83 178/79 O2 Sat by Pulse 98 95 Oximetry 08/13/19 08/13/19 08/13/19 19:37 19:47 20:17 Temperature 98.2 F 98.2 F 99.2 F Pulse Rate 86 82 85 Respiratory 18 18 18 Rate Blood Pressure 165/81 172/79 174/90 O2 Sat by Pulse 96 96 97 Oximetry 08/13/19 21:12 Temperature 98.6 F Pulse Rate 84 Respiratory 16 Rate Blood Pressure 170/83 O2 Sat by Pulse 95 Oximetry Medical Decision Making - Medical Decision Making Upon arrival the patient was placed into room 2. A thorough history and physical exam is performed. I did provide the patient with his home dose of oxycodone. I recommended repeating laboratory studies. CBC shows a hemoglobin of 6.8. It was measured at 6.5 earlier today and 7.8 on the first. INR is elevated at 1.4. Creatinine is 1.4 from a baseline of 0.9. Calcium is low at 7.8. I did discuss the results with the patient. He is requesting blood transfusion at this time. I did provide the patient with 1 unit. I did perform a CT of the patient's abdomen and pelvis because of his reported abdominal distention. It does demonstrate bilateral pleural effusions. The patient is denying any shortness of breath. Patient is satting appropriately on room air. She does have a significant amount of constipation. I did recommend an enema for which the patient did agree to. This perform the patient does have passage of a significant amount of stool. Inform him that he needs to have a bowel regimen at home with these can be on chronic narcotics. I did add MiraLAX twice daily to his regimen. Called and discussed the case with Dr. Martinez. He agree that if the patient is requesting transfusion that after transfusion the patient may be transferred back to his facility. He is sent back to [facility] with a perception for MiraLAX. Inform the patient that he will have to have repetitive blood draws to ensure that his hemoglobin stays stable. The patient has any new or worsening symptoms please return to the emergency room. Patient was in agreement with the treatment plan he was discharged in stable condition - Lab Data Result diagrams: 08/13/19 16:40 08/13/19 16:40 Lab Results 08/13/19 08/13/19 08/13/19 Range/Units 16:40 16:40 16:40 WBC 10.8 H (3.8-10.6) k/uL RBC 2.19 L (4.30-5.90) m/uL Hgb 6.8 L* (13.0-17.5) gm/dL Hct 21.0 L (39.0-53.0) % MCV 96.1 (80.0-100.0) fL MCH 31.2 (25.0-35.0) pg MCHC 32.5 (31.0-37.0) g/dL RDW 17.1 H (11.5-15.5) % Plt Count 302 (150-450) k/uL Neutrophils % 82 % Lymphocytes % 8 % Monocytes % 6 % Eosinophils % 2 % Basophils % 2 % Neutrophils # 8.8 H (1.3-7.7) k/uL Lymphocytes # 0.9 L (1.0-4.8) k/uL Monocytes # 0.6 (0-1.0) k/uL Eosinophils # 0.2 (0-0.7) k/uL Basophils # 0.2 (0-0.2) k/uL Anisocytosis Slight PT 13.9 H (9.0-12.0) sec INR 1.4 H (<1.2) APTT 31.4 H (22.0-30.0) sec Sodium 138 (137-145) mmol/L Potassium 4.2 (3.5-5.1) mmol/L Chloride 102 (98-107) mmol/L Carbon Dioxide 30 (22-30) mmol/L Anion Gap 6 mmol/L BUN 27 H (9-20) mg/dL Creatinine 1.41 H (0.66-1.25) mg/dL Est GFR (CKD-EPI)AfAm 59 (>60 ml/min/1.73 sqM) Est GFR (CKD-EPI)NonAf 51 (>60 ml/min/1.73 sqM) Glucose 117 H (74-99) mg/dL Calcium 7.8 L (8.4-10.2) mg/dL Total Bilirubin 0.2 (0.2-1.3) mg/dL AST 18 (17-59) U/L ALT 6 L (21-72) U/L Alkaline Phosphatase 96 (38-126) U/L Total Protein 6.8 (6.3-8.2) g/dL Albumin 2.4 L (3.5-5.0) g/dL Blood Type Blood Type Recheck Bld Type Recheck Status Antibody Screen Crossmatch Spec Expiration Date 08/13/19 Range/Units 16:40 WBC (3.8-10.6) k/uL RBC (4.30-5.90) m/uL Hgb (13.0-17.5) gm/dL Hct (39.0-53.0) % MCV (80.0-100.0) fL MCH (25.0-35.0) pg MCHC (31.0-37.0) g/dL RDW (11.5-15.5) % Plt Count (150-450) k/uL Neutrophils % % Lymphocytes % % Monocytes % % Eosinophils % % Basophils % % Neutrophils # (1.3-7.7) k/uL Lymphocytes # (1.0-4.8) k/uL Monocytes # (0-1.0) k/uL Eosinophils # (0-0.7) k/uL Basophils # (0-0.2) k/uL Anisocytosis PT (9.0-12.0) sec INR (<1.2) APTT (22.0-30.0) sec Sodium (137-145) mmol/L Potassium (3.5-5.1) mmol/L Chloride (98-107) mmol/L Carbon Dioxide (22-30) mmol/L Anion Gap mmol/L BUN (9-20) mg/dL Creatinine (0.66-1.25) mg/dL Est GFR (CKD-EPI)AfAm (>60 ml/min/1.73 sqM) Est GFR (CKD-EPI)NonAf (>60 ml/min/1.73 sqM) Glucose (74-99) mg/dL Calcium (8.4-10.2) mg/dL Total Bilirubin (0.2-1.3) mg/dL AST (17-59) U/L ALT (21-72) U/L Alkaline Phosphatase (38-126) U/L Total Protein (6.3-8.2) g/dL Albumin (3.5-5.0) g/dL Blood Type O Positive Blood Type Recheck O Pos Bld Type Recheck Status No Antibody Screen NEGATIVE Crossmatch See Detail Spec Expiration Date 08/16/2019 - 2340 Critical Care Time Critical Care Time: Yes Total Critical Care Time: 35 (mins) Critical Care Time: Patient required acute blood transfusion Disposition Clinical Impression: Anemia, Constipation Disposition: HOME SELF-CARE Condition: Stable Instructions (If sedation given, give patient instructions): Constipation (ED), Anemia (ED), Blood Transfusion (DC) Additional Instructions: You must have repeat laboratory studies drawn to ensure improvement in your hemoglobin. Return to the emergency department for any new or worsening symptoms. Prescriptions: Polyethylene Glycol 3350 [Miralax] 17 gm PO BID #527 gm Is patient prescribed a controlled substance at d/c from ED?: No Referrals: Rohan Martinez DO [Primary Care Provider] - 1-2 days Time of Disposition: 19:57
[2019-08-13 21:15] VITALS: BP 170/83; PULSE 84; RESP 16; TEMP 98.6
== END 2019-08-13 23:01 | disposition home or self-care (01) ==
LOC: EC 16:02
DX: D64.9 Anemia, unspecified (principal); K59.00 Constipation, unspecified; R79.1 Abnormal coagulation profile; J90 Pleural effusion, not elsewhere classified; G06.2 Extradural and subdural abscess, unspecified; R78.81 Bacteremia; R53.1 Weakness; M48.00 Spinal stenosis, site unspecified; E78.5 Hyperlipidemia, unspecified; I10 Essential (primary) hypertension; Z79.899 Other long term (current) drug therapy; Z86.79 Personal history of other diseases of the circulatory system; Z87.891 Personal history of nicotine dependence; Z98.890 Other specified postprocedural states
CPT/HCPCS: 99291; 96360; 36415; 86900; 86901; 80053; 85025; 85610; 85730; 86850; 86920; 74177; P9016; Q9967

== ENCOUNTER 2019-08-22 15:01 | Emergency (ER) | payer MEDICARE ==
--- NOTE | 2019-08-22 15:45 | ED ---
General Adult HPI - General Chief complaint: Recheck/Abnormal Lab/Rx Stated complaint: Hypertension Time Seen by Provider: 08/22/19 15:03 Source: patient, EMS Mode of arrival: EMS Limitations: no limitations - History of Present Illness Initial comments: Dictation was produced using [employer] dictation software. please excuse any grammatical, word or spelling errors. Chief Complaint: 68-year-old male past medical history of stroke with left-sided deficit, spinal infection presents with pyrexia and hypertension. History of Present Illness: Patient is a 68-year-old male with multiple comorbidities. Patient is currently a resident [facility]. Patient states he feels well at this time. Patient complaining of some back pain however. He lives with this back pain. Patient states he was recently diagnosed with spinal infection. He was done at [facility]. Ultimately was decided that patient was not a good candidate for surgery in that it was better that patient be treated with antibiotics. Patient has history of stroke with residual left-sided deficit to his upper and lower extremity suffered from stroke 30 years ago. Patient also had elevated blood pressures. History was obtained from Sue from [facility]. She reports that patient was sent for elevated systolic blood pressure measuring 238. He was also found to have a temperature of 102. The ROS documented in this emergency department record has been reviewed and confirmed by me. Those systems with pertinent positive or negative responses have been documented in the HPI. All other systems are other negative and/or noncontributory. PHYSICAL EXAM: General Impression: Alert and oriented x3, not in acute distress, warm to touch, hard of hearing HEENT: Normocephalic atraumatic, extra-ocular movements intact, pupils equal and reactive to light bilaterally, mucous membranes moist. Cardiovascular: Heart regular rate and rhythm, S1&S2 audible, no murmurs, rubs or gallops Chest: Lungs clear to auscultation bilaterally, no rhonchi, no wheeze, no rales Abdomen: Bowel sounds present, abdomen soft, non-tender, non-distended, no organomegaly Musculoskeletal: Pulses present and equal in all extremities, no peripheral edema Motor: no focal deficits noted Neurological: CN II-XII grossly intact, no focal motor or sensory deficits noted Skin: Intact with no visualized rashes Psych: Normal affect and mood ED course: 68-year-old male with multiple comorbidities presents with hypertension and pyrexia. Vital signs temperature of 100.9, heart rate 105, blood pressure 160/84. Patient has no significant complaints at this time. He has back pain however this is chronic. Patient is currently being treated with antibiotics for spinal infection. He was supposed to have an appointment with infectious disease today however did not make the appointment because he was sent to the emergency department. Apparently staff admitted [place] reported to Dr. Cruz and Dr. Cruz instructed dentist have patient sent to the emergency department.Transfer documentation was reviewed. Patient was diagnosed with subdural abscess around the time of early July. Chart shows that patient had subdural abscess drained. Discussed with that the abscess was not drained despite what the history and physical says on transfer documentation. Patient is currently on Cefazolin.Patient care patient case was discussed in detail with Dr. Rohan Martinez who recommends patient be transferred back to [facility] given that he has history of subdural abscess. Laboratory evaluation obtained. Patient is leukocytosis of 16.9, hemoglobin is 7.4. Coag panel is unremarkable. Metabolic panel is grossly unremarkable. No lactacidosis. Urine culture shows 84 red blood cells without any white blood cells. Chest x-rays obtained showing bilateral pleural effusions and left lower lobe pneumonia no gross heart failure. Elbow x-ray shows no acute processes. Elbow x-ray was ordered because patient states he struck his elbow at the residential. It's point patient has mild lower back pain. He also has x-ray findings of pneumonia however he is not having any respiratory symptoms. Discussed results with patient and patient's . They are agreeable to transfer to [facility] were he received his care and was evaluated by surgical team there. Patient case with Dr. Mcintyre at [facility] was willing to accept the transfer. She was treated with broad-spectrum antibiotics. Patient not showing any signs of septic shock at this time however there is concern that this may represent early sepsis. He is hemodynamically stable. EKG interpretation: Ventricular rate 101, sinus tachycardia,. Interval 24, QS 100, QTC 435. No NM prolongation, no QTC prolongation, no ST or T-wave changes noted.. Overall, this EKG is unremarkable - Related Data Home Medications Medication Instructions Recorded Confirmed Pravastatin Sodium [Pravachol] 20 mg PO HS 09/07/16 08/13/19 amLODIPine [Norvasc] 5 mg PO DAILY 09/07/16 08/13/19 carBAMazepine [TEGretol] 200 mg PO BID@0800,199909/07/16 08/13/19 Acetaminophen Tab [Tylenol] 650 mg PO Q6H PRN 08/07/19 08/13/19 Ferrous Sulfate [Iron (65 MG 325 mg PO HS 08/07/19 08/13/19 Elemental)] Lisinopril [Prinivil] 10 mg PO DAILY 08/07/19 08/13/19 Magnesium Hydroxide [Milk of 2,400 mg PO DAILY PRN 08/07/19 08/13/19 Magnesia Concentrate] Methocarbamol [Robaxin-750] 750 mg PO TID@0500,1300,209908/07/19 08/13/19 Sennosides/Docusate Sodium [Senna 2 tab PO BID@0800,199908/07/19 08/13/19 Plus 8.6-50 mg Tablet] ceFAZolin [Kefzol] 2 gm IV TID@0500,1300,209908/13/19 08/13/19 Previous Rx's Medication Instructions Recorded Rifampin 300 mg PO BID@0800,1999 #0 08/09/19 oxyCODONE HCL [OxyIR] 5 mg PO Q6H #12 tab 08/09/19 Polyethylene Glycol 3350 [Miralax] 17 gm PO BID #527 gm 08/13/19 Allergies Allergy/AdvReac Type Severity Reaction Status Date / Time No Known Allergies Allergy Verified 08/22/19 15:10 Review of Systems ROS Statement: Those systems with pertinent positive or pertinent negative responses have been documented in the HPI. ROS Other: All systems not noted in ROS Statement are negative. 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, SPINAL STENOSIS History of Any Multi-Drug Resistant Organisms: None Reported Past Surgical History: Back Surgery Additional Past Surgical History / Comment(s): BRAIN ANEURYSM REPAIR, Past Anesthesia/Blood Transfusion Reactions: No Reported Reaction Past Psychological History: No Psychological Hx Reported Smoking Status: Former smoker Past Alcohol Use History: None Reported Past Drug Use History: None Reported - Past Family History Mother Family Medical History: No Reported History General Exam Limitations: no limitations Course Vital Signs 08/22/19 08/22/19 15:10 15:40 Temperature 100.9 F H Pulse Rate 105 H 101 H Respiratory 18 20 Rate Blood Pressure 164/84 164/78 O2 Sat by Pulse 97 97 Oximetry Medical Decision Making - Lab Data Result diagrams: 08/22/19 16:00 08/22/19 16:00 Lab Results 08/22/19 08/22/19 08/22/19 Range/Units 16:00 16:00 16:00 WBC 16.9 H (3.8-10.6) k/uL RBC 2.41 L (4.30-5.90) m/uL Hgb 7.4 L D (13.0-17.5) gm/dL Hct 23.1 L (39.0-53.0) % MCV 96.1 (80.0-100.0) fL MCH 30.6 (25.0-35.0) pg MCHC 31.8 (31.0-37.0) g/dL RDW 16.2 H (11.5-15.5) % Plt Count 294 (150-450) k/uL Neutrophils % 89 % Lymphocytes % 5 % Monocytes % 3 % Eosinophils % 1 % Basophils % 0 % Neutrophils # 15.1 H (1.3-7.7) k/uL Lymphocytes # 0.9 L (1.0-4.8) k/uL Monocytes # 0.6 (0-1.0) k/uL Eosinophils # 0.2 (0-0.7) k/uL Basophils # 0.0 (0-0.2) k/uL Anisocytosis Slight PT (9.0-12.0) sec INR (<1.2) APTT (22.0-30.0) sec Sodium 141 (137-145) mmol/L Potassium 5.0 (3.5-5.1) mmol/L Chloride 105 (98-107) mmol/L Carbon Dioxide 32 H (22-30) mmol/L Anion Gap 4 mmol/L BUN 25 H (9-20) mg/dL Creatinine 1.02 (0.66-1.25) mg/dL Est GFR (CKD-EPI)AfAm 87 (>60 ml/min/1.73 sqM) Est GFR (CKD-EPI)NonAf 75 (>60 ml/min/1.73 sqM) Glucose 106 H (74-99) mg/dL Plasma Lactic Acid Chaz 1.1 (0.7-2.0) mmol/L Calcium 8.0 L (8.4-10.2) mg/dL Total Bilirubin 0.5 (0.2-1.3) mg/dL AST 33 (17-59) U/L ALT 7 L (21-72) U/L Alkaline Phosphatase 90 (38-126) U/L Total Protein 7.4 (6.3-8.2) g/dL Albumin 2.6 L (3.5-5.0) g/dL Urine Color Urine Appearance (Clear) Urine pH (5.0-8.0) Ur Specific Prospect (1.001-1.035) Urine Protein (Negative) Urine Glucose (UA) (Negative) Urine Ketones (Negative) Urine Blood (Negative) Urine Nitrite (Negative) Urine Bilirubin (Negative) Urine Urobilinogen (<2.0) mg/dL Ur Leukocyte Esterase (Negative) Urine RBC (0-5) /hpf Urine WBC (0-5) /hpf Urine WBC Clumps (None) /hpf Urine Bacteria (None) /hpf Ur Yeast w Hyphae (None) /hpf Urine Yeast (Budding) (None) /hpf 08/22/19 08/22/19 Range/Units 16:00 16:05 WBC (3.8-10.6) k/uL RBC (4.30-5.90) m/uL Hgb (13.0-17.5) gm/dL Hct (39.0-53.0) % MCV (80.0-100.0) fL MCH (25.0-35.0) pg MCHC (31.0-37.0) g/dL RDW (11.5-15.5) % Plt Count (150-450) k/uL Neutrophils % % Lymphocytes % % Monocytes % % Eosinophils % % Basophils % % Neutrophils # (1.3-7.7) k/uL Lymphocytes # (1.0-4.8) k/uL Monocytes # (0-1.0) k/uL Eosinophils # (0-0.7) k/uL Basophils # (0-0.2) k/uL Anisocytosis PT 14.4 H (9.0-12.0) sec INR 1.4 H (<1.2) APTT 29.8 (22.0-30.0) sec Sodium (137-145) mmol/L Potassium (3.5-5.1) mmol/L Chloride (98-107) mmol/L Carbon Dioxide (22-30) mmol/L Anion Gap mmol/L BUN (9-20) mg/dL Creatinine (0.66-1.25) mg/dL Est GFR (CKD-EPI)AfAm (>60 ml/min/1.73 sqM) Est GFR (CKD-EPI)NonAf (>60 ml/min/1.73 sqM) Glucose (74-99) mg/dL Plasma Lactic Acid Chaz (0.7-2.0) mmol/L Calcium (8.4-10.2) mg/dL Total Bilirubin (0.2-1.3) mg/dL AST (17-59) U/L ALT (21-72) U/L Alkaline Phosphatase (38-126) U/L Total Protein (6.3-8.2) g/dL Albumin (3.5-5.0) g/dL Urine Color Yellow Urine Appearance Turbid (Clear) Urine pH 6.0 (5.0-8.0) Ur Specific Prospect 1.016 (1.001-1.035) Urine Protein 2+ H (Negative) Urine Glucose (UA) Negative (Negative) Urine Ketones Negative (Negative) Urine Blood Moderate H (Negative) Urine Nitrite Positive (Negative) Urine Bilirubin Negative (Negative) Urine Urobilinogen <2.0 (<2.0) mg/dL Ur Leukocyte Esterase Large H (Negative) Urine RBC 84 H (0-5) /hpf Urine WBC >182 H (0-5) /hpf Urine WBC Clumps Many H (None) /hpf Urine Bacteria Rare H (None) /hpf Ur Yeast w Hyphae Occasional (None) /hpf Urine Yeast (Budding) Many H (None) /hpf Disposition Clinical Impression: Sepsis Disposition: OTHER INSTITUTION NOT DEFINED Condition: Critical Referrals: Rohan Martinez DO [Primary Care Provider] - 1-2 days Time of Disposition: 17:12 - Out of Hospital Transfer - Req. Specs Out of Hospital Transfer - Requested Specifics: Other Emergency Center (Formerly [facility])
[2019-08-22] MEDS ORDERED: HYDROmorphone 0.5 MG/0.5 ML SYRINGE IVP STA (16:10)
[2019-08-22 16:17] LABS: Anisocytosis Slight; Basophils % (A) 0 %; Eosinophils # (A) 0.2 k/uL (0-0.7); Eosinophils % (A) 1 %; HCT 23.1 % (39.0-53.0); Lymphocytes # (A) 0.9 k/uL (1.0-4.8); Lymphocytes % (A) 5 %; MCH 30.6 pg (25.0-35.0); MCHC 31.8 g/dL (31.0-37.0); MCV 96.1 fL (80.0-100.0); Mean Platelet Volume 6.1; Monocytes # (A) 0.6 k/uL (0-1.0); Monocytes % (A) 3 %; Neutrophils # (A) 15.1 k/uL (1.3-7.7); Neutrophils % (A) 89 %; Platelet Count 294 k/uL (150-450); RBC 2.41 m/uL (4.30-5.90); RDW 16.2 % (11.5-15.5); WBC 16.9 k/uL (3.8-10.6)
[2019-08-22 16:25] LABS: Albumin 2.6 g/dL (3.5-5.0); Total Bilirubin 0.5 mg/dL (0.2-1.3); Total Protein 7.4 g/dL (6.3-8.2)
[2019-08-22 16:26] LABS: INR 1.4 (<1.2); Partial Thromboplastin Time 29.8 sec (22.0-30.0); Prothrombin Time 14.4 sec (9.0-12.0)
[2019-08-22 16:42] LABS: HGB 7.4 gm/dL (13.0-17.5)
[2019-08-22 16:53] LABS: Appearance,Urine Turbid (Clear); Bacteria,Urine Rare /hpf; Bilirubin,Urine Negative (Negative); Blood,Urine Moderate (Negative); Budding Yeast,Urine Many /hpf; Color,Urine Yellow; Glucose,Urine (UA) Negative (Negative); Hyphae Yeast, Urine Occasional /hpf; Ketones,Urine Negative (Negative); Leukocyte Esterase,Urine Large (Negative); Nitrite,Urine Positive (Negative); Protein,Urine 2+ (Negative); RBC,Urine 84 /hpf (0-5); Specific Gravity,Urine 1.016 (1.001-1.035); Urobilinogen,Urine <2.0 mg/dL (<2.0)
[2019-08-22] MEDS ORDERED: VANCOMYCIN IV PER PHARMACY 1 EACH MISC MISCELLANE PRN (16:59)
--- NOTE | 2019-08-22 17:00 | XR ---
EXAMINATION TYPE: XR elbow limited LT DATE OF EXAM: 08/22/2019 COMPARISON: NONE HISTORY: Elbow pain TECHNIQUE: 3 views FINDINGS: There is some spurring on the olecranon process of the ulna. There is no sign of joint effu trevor. I see no fracture nor dislocation. IMPRESSION: Mild hypertrophic degenerative changes. No fracture seen.
--- NOTE | 2019-08-22 17:01 | XR ---
EXAMINATION TYPE: XR chest 2V DATE OF EXAM: 08/22/2019 COMPARISON: NONE HISTORY: Fever hypertension TECHNIQUE: Frontal and lateral views of the chest are obtained. FINDINGS: Heart is enlarged. There is some mild patchy infiltrate left lower lobe. There is no gross heart failure. There are chest leads. There is blunting of both costophrenic angles. IMPRESSION: Bilateral pleural effusions. Left lower lobe pneumonia. Abnormalities increased compared to last exam. No gross heart failure.
[2019-08-22] MEDS ORDERED: CEFEPIME 2 GM in SODIUM CHLORIDE 0.9% 100 ML IVPB STA (17:06)
[2019-08-22] MEDS ORDERED: VANCOMYCIN 1,250 MG in SODIUM CHLORIDE 0.9% 250 ML IVPB ONE (18:00)
[2019-08-22] MEDS ORDERED: ACETAMINOPHEN TAB 325 MG TAB PO STA (19:46)
[2019-08-22 21:18] VITALS: BP 132/76; PULSE 100; RESP 18; TEMP 99.6
[2019-08-23] MEDS ORDERED: VANCOMYCIN 1,000 MG in SODIUM CHLORIDE 0.9% 250 ML IVPB SCH (06:00)
== END 2019-08-22 22:54 | disposition other institution (70) ==
LOC: EC 15:01
DX: A41.9 Sepsis, unspecified organism (principal); G06.2 Extradural and subdural abscess, unspecified; J90 Pleural effusion, not elsewhere classified; J18.9 Pneumonia, unspecified organism; I10 Essential (primary) hypertension; E78.5 Hyperlipidemia, unspecified; R00.0 Tachycardia, unspecified; G89.29 Other chronic pain; M54.5 Low back pain; Z79.899 Other long term (current) drug therapy; Z87.891 Personal history of nicotine dependence; Z86.79 Personal history of other diseases of the circulatory system; Z86.73 Personal history of transient ischemic attack (TIA), and cerebral infarction without residual deficits
CPT/HCPCS: 36415; 93005; 80053; 83605; 85025; 85610; 85730; 81001; 87040; 87086; 87502; 73070; 71046; 99285; 96375; 96365; 96367; 96366; J3370; J0692; J1170

== ENCOUNTER → 2020-07-22 | Outpatient (CLI) | payer MEDICARE ==
--- NOTE | 2020-07-22 13:27 | CT ---
EXAMINATION TYPE: CT urogram wo/w con DATE OF EXAM: 07/22/2020 COMPARISON: 08/13/2019 HISTORY: Difficulty urinating CT DLP: 1311.9 mGycm CONTRAST: Performed and without and with IV Contrast, patient injected with 100 mL of Isovue 300. CT Urography was performed with unenhanced followed by enhanced images of the kidneys, ureters and ur inary bladder. Delayed images were obtained. 3d reconstruction was perfromed at a separate work sta tion. FINDINGS: KIDNEYS/BLADDER: No hydronephrosis. No nephrolithiasis. No distinct renal mass. Circumferential ur inary bladder wall thickening may reflect cystitis however malignancy is not excluded. LUNG BASES-: No visible nodule. No infiltrate. LIVER/GB: No calcified gallstones. No space occupying hepatic lesion. Biliary tree is of normal ca liber. PANCREAS: No inflammation. No distinct mass. SPLEEN: No splenic enlargement. No lesion seen. ADRENALS: No nodule. No thickening. BOWEL: Normal appendix. Normal bowel caliber. No inflammation. GENITAL ORGANS: No gross abnormality. LYMPH NODES: No greater than 1cm abdominal or pelvic lymph nodes are appreciated. AORTA: No significant abnormality. OSSEOUS STRUCTURES: Severe degenerative change lumbar spine with postoperative changes noted. OTHER: Fat-containing right inguinal hernia. IMPRESSION: 1. Urinary bladder wall thickening. Correlate for diffuse cystitis versus malignancy. Direct visualiz ation recommended.
== END | disposition home or self-care (01) ==
LOC: RADCTMAIN 11:16
PROVIDERS: ATTEND Urology
DX: N32.89 Other specified disorders of bladder (principal); R31.9 Hematuria, unspecified
CPT/HCPCS: 82565; 84520; 74178; 36415; 74400; Q9967

== ENCOUNTER 2020-07-31 15:48 | Inpatient (IN) | payer MEDICARE, OTHER ==
[2020-07-31] MEDS ORDERED: HYDROmorphone 0.5 MG/0.5 ML SYRINGE IVP STA (16:39)
--- NOTE | 2020-07-31 17:03 | XR ---
EXAMINATION TYPE: XR Hip LT and AP Pelvis DATE OF EXAM: 07/31/2020 COMPARISON: NONE HISTORY: Pain status post fall. TECHNIQUE: A single AP view of the pelvis is obtained. Two views of the left hip are obtained. FINDINGS: The left hip is partially obscured due to overlying soft tissues and patient's limited range of motio n. There is varus angulation of the femoral head . No evidence of dislocation. The remaining visualiz ed osseous structures and right hip are in anatomic alignment. Lumbar spine fusion is seen. IMPRESSION: Limited visualization of the left hip. Suggestion of left femoral neck fracture. Follow up CT for further characterization may be obtained a s clinically indicated.
[2020-07-31 17:49] LABS: Basophils % (A) 0 %; Eosinophils # (A) 0.2 k/uL (0-0.7); Eosinophils % (A) 1 %; HCT 31.9 % (39.0-53.0); HGB 10.4 gm/dL (13.0-17.5); Lymphocytes # (A) 0.7 k/uL (1.0-4.8); Lymphocytes % (A) 6 %; MCH 33.3 pg (25.0-35.0); MCHC 32.5 g/dL (31.0-37.0); MCV 102.6 fL (80.0-100.0); Macrocytosis Slight; Mean Platelet Volume 8.5; Monocytes # (A) 0.5 k/uL (0-1.0); Monocytes % (A) 5 %; Neutrophils % (A) 87 %; Platelet Count 228 k/uL (150-450); RBC 3.11 m/uL (4.30-5.90); RDW 13.8 % (11.5-15.5); WBC 11.6 k/uL (3.8-10.6)
[2020-07-31 18:01] LABS: Albumin 3.9 g/dL (3.5-5.0); Calcium 8.5 mg/dL (8.4-10.2); Total Bilirubin 0.6 mg/dL (0.2-1.3); Total Protein 7.5 g/dL (6.3-8.2)
[2020-07-31 18:02] LABS: Potassium 5.4 mmol/L (3.5-5.1)
--- NOTE | 2020-07-31 18:04 | CT ---
EXAMINATION TYPE: CT hip LT wo con DATE OF EXAM: 07/31/2020 COMPARISON: Same-day radiograph. HISTORY: fall, left hip pain CT DLP: 973.[address] images of the left hip was performed without contrast. Coronal and sagittal reformats were g enerated and reviewed. Automated exposure control for dose reduction was used. FINDINGS: There is demonstration of moderately impacted and varus angulated, transcervical left femoral neck fr acture. No evidence of dislocation. There is soft tissue edema about the fracture site. There are mod erate degenerative changes of the bilateral hips. No significant joint effusions. IMPRESSION: LEFT FEMORAL NECK FRACTURE.
--- NOTE | 2020-07-31 18:28 | ED ---
Fall HPI - General Source: patient, EMS Mode of arrival: EMS <Rylee Richter - Last Filed: 07/31/20 20:00> <Aranza Goldberg - Last Filed: 08/01/20 16:51> - General Chief Complaint: Fall Stated Complaint: Fall Hip injury - History of Present Illness Initial Comments: 69-year-old male with history of ruptured brain aneurysm at age 31 with subsequent left-sided deficits patient has a brace to the left leg he states he is able to walk with a walker, patient also has additional history of hypertension. Patient states that he was walking, pulling a wagon today without his cane when he fell over onto his left side. Denies head injury, injury to chest, neck, back or abdomen. He states he fell onto his left hip and has pain. Patient states that he is unable to weight bear. Denies low back pain, loss of consciousness, syncope, new sensation deficits or weakness. Patient carter anticoagulation use. Patient appears uncomfortable on arrival. He was brought in by EMS. (Rylee Richter) - Related Data Home Medications Medication Instructions Recorded Confirmed Pravastatin Sodium [Pravachol] 20 mg PO HS 09/07/16 07/31/20 Methocarbamol [Robaxin-750] 750 mg PO TID@0500,1300,2100 08/07/19 07/31/20 Carvedilol [Coreg] 25 mg PO BID 07/31/20 07/31/20 NIFEdipine [Adalat cc] 60 mg PO BID 07/31/20 07/31/20 Pantoprazole Sodium 40 mg PO DAILY 07/31/20 07/31/20 carBAMazepine [TEGretol XR] 100 mg PO BID 07/31/20 07/31/20 Allergies Allergy/AdvReac Type Severity Reaction Status Date / Time No Known Allergies Allergy Verified 07/31/20 18:14 Review of Systems ROS Other: All systems not noted in ROS Statement are negative. <Rylee Richter - Last Filed: 07/31/20 20:00> ROS Other: All systems not noted in ROS Statement are negative. <Aranza Goldberg - Last Filed: 08/01/20 16:51> ROS Statement: Those systems with pertinent positive or pertinent negative responses have been documented in the HPI. 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, SPINAL STENOSIS History of Any Multi-Drug Resistant Organisms: None Reported Past Surgical History: Back Surgery Additional Past Surgical History / Comment(s): BRAIN ANEURYSM REPAIR, Past Anesthesia/Blood Transfusion Reactions: No Reported Reaction Past Psychological History: No Psychological Hx Reported Smoking Status: Never smoker Past Alcohol Use History: None Reported Past Drug Use History: None Reported - Past Family History Mother Family Medical History: No Reported History <Rylee Richter - Last Filed: 07/31/20 20:00> General Exam Limitations: physical limitation <Rylee Richter - Last Filed: 07/31/20 20:00> - General Exam Comments Initial Comments: General: The patient is awake and alert, in no distress Eye: +3 mm pupils are equal, round and reactive to light, extra-ocular movements are intact. No nystagmus. There is normal conjunctiva bilaterally. No signs of icterus. Ears, nose, mouth and throat: There are moist mucous membranes and no oral lesions. No raccoon or Zuniga sign Neck: The neck is supple, there is no tenderness or JVD. No midline tenderness to palpation of the cervical spine. Cardiovascular: There is a regular rate and rhythm. No murmur, rub or gallop is appreciated. Respiratory: Lungs are clear to auscultation, respirations are non-labored, breath sounds are equal. No wheezes, stridor, rales, or rhonchi. Gastrointestinal: Soft, non-distended, non-tender abdomen without masses or organomegaly noted. There is no rebound or guarding present. Musculoskeletal: Normal ROM, at the right LE, pain with any ROM of the left LE which is baseline restricted. Strength 5/5 of the right LE, contracted partially the Left LE, sensation slightly less in the extremity. DP pulses equal bilater ally 2+. Neurological: A&O x 3. CN II-XII intact grossly, There are no obvious motor or sensory deficits. Coordination appears grossly intact. Speech is normal. Skin: Skin is warm and dry and no rashes or lesions are noted. No scalp hematoma Psychiatric: Cooperative, appropriate mood & affect, normal judgment. (Rylee Richter) Course Vital Signs 10/23/20 10/23/20 10/23/20 16:05 17:03 19:05 Temperature 97.9 F Pulse Rate 61 70 81 Respiratory 18 18 18 Rate Blood Pressure 171/91 160/90 201/102 O2 Sat by Pulse 95 95 98 Oximetry 07/31/20 20:20 Temperature Pulse Rate 79 Respiratory 18 Rate Blood Pressure 180/101 O2 Sat by Pulse 96 Oximetry Medical Decision Making - Lab Data Result diagrams: 07/31/20 17:03 07/31/20 17:03 <Rylee Richter - Last Filed: 07/31/20 20:00> - Lab Data Result diagrams: 08/01/20 13:55 07/31/20 17:03 <Aranza Goldberg - Last Filed: 08/01/20 16:51> - Medical Decision Making 69yo male presenting for cc of left hip pain. Femiral neck fracture on CT/Xr. Pulses strong. denies changes in sensation or ROM/strength other than reduction secondary to pain. Patient case discussed wtih environmental services lead BULL King with Dr. Blayne farris, who is agreeable to admission. PRN pain medications ordered. Nightly BP medication ordered. Dr. Goldberg agreeable to care plan. (Rylee Richter) I was available for consultation in the emergency department. The history and physical exam were done by the midlevel provider. I was consulted for this patients care. I reviewed the case with the midlevel provider and based on their presentation of the patient, I agree with the assessment, medical decision making and plan of care as documented. Chart was dictated using [employer] dictation software. Attempts were made to correct any dictation errors however some typographical errors may persist. Patient was seen during a national state of emergency due to the Covid-19 pand emic. (Aranza Goldberg) - Lab Data Lab Results 07/31/20 07/31/20 Range/Units 17:03 17:03 WBC 11.6 H (3.8-10.6) k/uL RBC 3.11 L (4.30-5.90) m/uL Hgb 10.4 L (13.0-17.5) gm/dL Hct 31.9 L (39.0-53.0) % MCV 102.6 H (80.0-100.0) fL MCH 33.3 (25.0-35.0) pg MCHC 32.5 (31.0-37.0) g/dL RDW 13.8 (11.5-15.5) % Plt Count 228 (150-450) k/uL Neutrophils % 87 % Lymphocytes % 6 % Monocytes % 5 % Eosinophils % 1 % Basophils % 0 % Neutrophils # 10.0 H (1.3-7.7) k/uL Lymphocytes # 0.7 L (1.0-4.8) k/uL Monocytes # 0.5 (0-1.0) k/uL Eosinophils # 0.2 (0-0.7) k/uL Basophils # 0.0 (0-0.2) k/uL Macrocytosis Slight Sodium 138 (137-145) mmol/L Potassium 5.4 H (3.5-5.1) mmol/L Chloride 108 H (98-107) mmol/L Carbon Dioxide 25 (22-30) mmol/L Anion Gap 5 mmol/L BUN 28 H (9-20) mg/dL Creatinine 1.01 (0.66-1.25) mg/dL Est GFR (CKD-EPI)AfAm 87 (>60 ml/min/1.73 sqM) Est GFR (CKD-EPI)NonAf 75 (>60 ml/min/1.73 sqM) Glucose 99 (74-99) mg/dL Calcium 8.5 (8.4-10.2) mg/dL Total Bilirubin 0.6 (0.2-1.3) mg/dL AST 44 (17-59) U/L ALT 22 (4-49) U/L Alkaline Phosphatase 78 (38-126) U/L Total Protein 7.5 (6.3-8.2) g/dL Albumin 3.9 (3.5-5.0) g/dL Disposition Is patient prescribed a controlled substance at d/c from ED?: No Time of Disposition: 18:28 Decision to Admit Reason: Admit from EC Decision Date: 07/31/20 Decision Time: 18:28 <Rylee Richter - Last Filed: 07/31/20 20:00> <Aranza Goldberg - Last Filed: 08/01/20 16:51> Clinical Impression: Fall, Left hip pain, Femoral neck fracture Disposition: ADMITTED IP TO THIS [facility] Condition: Stable
[2020-07-31] MEDS: carvediloL 12.5 MG TAB PO SCH (19:09)
[2020-07-31] MEDS: HYDROmorphone 0.5 MG/0.5 ML SYRINGE IVP PRN (19:09)
[2020-07-31] MEDS ORDERED: NALOXONE 0.4 MG/ML 1 ML VIAL IV PRN (19:21)
[2020-07-31] MEDS ORDERED: hydrALAZINE HCL 20 MG/ML 1 ML VIAL IVP STA (20:00)
[2020-07-31] MEDS ORDERED: methocarbamoL 750 MG TAB PO SCH (21:00)
--- NOTE | 2020-07-31 21:48 | P.HPOR ---
History of Present Illness H&P Date: 07/31/20 Chief Complaint: Left hip pain status post fall Patient is seen and examined today at bedside. He is a pleasant 69-year-old male is a bit hard of hearing and presented to the emergency room with a chief complaint of left hip pain. Patient apparently had a history of brain aneurysm many years ago and as a result has contractures at his left hip and left leg and left upper extremity. Despite this he says that he is able to get around and do work around the house and outside. He says over the past 5 months he has had 2 use a cane as he has had had more difficulty walking around. He says normally he walks around just fine to use his cane. He says that today he was working outside and pulling a wagon full of logs when he fell onto his left side. He says he had acute pain at his left hip and has been unable to get up or get around. He denies any loss of consciousness. He denies any neck pain. Denies any new pains other than his left hip. Denies any changes bowel bladder function. Review of Systems History of brain aneurysm with long history of contractures at his left upper extremity left lower extremity and left hip. He says he has been having some worsening ability to get around due to his left hip over the past 4 months. He denies any chest pain or shortness of breath. Denies any loss of consciousness. 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, history of contractures left hip and left upper extremity SPINAL STENOSIS History of Any Multi-Drug Resistant Organisms: None Reported Past Surgical History: Back Surgery Additional Past Surgical History / Comment(s): BRAIN ANEURYSM REPAIR, Past Anesthesia/Blood Transfusion Reactions: No Reported Reaction Past Psychological History: No Psychological Hx Reported Smoking Status: Never smoker Past Alcohol Use History: None Reported Past Drug Use History: None Reported - Past Family History Mother Family Medical History: No Reported History Medications and Allergies Home Medications Medication Instructions Recorded Confirmed Type Pravastatin Sodium [Pravachol] 20 mg PO HS 09/07/16 07/31/20 History Methocarbamol [Robaxin-750] 750 mg PO TID@0500,1300,2100 08/07/19 07/31/20 History Carvedilol [Coreg] 25 mg PO BID 07/31/20 07/31/20 History NIFEdipine [Adalat cc] 60 mg PO BID 07/31/20 07/31/20 History Pantoprazole Sodium 40 mg PO DAILY 07/31/20 07/31/20 History carBAMazepine [TEGretol XR] 100 mg PO BID 07/31/20 07/31/20 History Allergies Allergy/AdvReac Type Severity Reaction Status Date / Time No Known Allergies Allergy Verified 07/31/20 18:14 Physical Examination Osteopathic Statement: *. No significant issues noted on an osteopathic structural exam other than those noted in the History and Physical/Consult. - Hip left Gait: other (He has pain with his left hip with any motion. He has significant contracture to about 80 at his left hip. He has contractures left knee as well. He does not have good motion at his ankle or toes which is chronic for him. His left upper extremity has chronic contractures well. His abdomen soft) Pain with motion: internal rotation and hip flexion (There is pain with motion of his left hip. There is no open wounds lacerations or abrasions on his skin.) Results - Labs Labs: Abnormal Lab Results - Last 24 Hours (Table) 07/31/20 07/31/20 Range/Units 17:03 17:03 WBC 11.6 H (3.8-10.6) k/uL RBC 3.11 L (4.30-5.90) m/uL Hgb 10.4 L (13.0-17.5) gm/dL Hct 31.9 L (39.0-53.0) % MCV 102.6 H (80.0-100.0) fL Neutrophils # 10.0 H (1.3-7.7) k/uL Lymphocytes # 0.7 L (1.0-4.8) k/uL Potassium 5.4 H (3.5-5.1) mmol/L Chloride 108 H (98-107) mmol/L BUN 28 H (9-20) mg/dL H & H 07/31/20 Range/Units 17:03 Hgb 10.4 L (13.0-17.5) gm/dL Hct 31.9 L (39.0-53.0) % Result Diagrams: 07/31/20 17:03 10/23/20 17:03 - Diagnostic results Hip x-ray: report reviewed, image reviewed (Left hip images are nondiagnostic has he has significant contracture and poor films) Hip CT: report reviewed, image reviewed (Left hip computed tomography scan shows evidence of femoral neck fracture with some valgus deformity and impaction with angulation.) Assessment and Plan Assessment: Acute left hip femoral neck fracture Chronic lower extremity changes with 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 history of brain aneurysm Left upper extremity contracture History of spinal stenosis and subsequent lumbar fusion many years ago which appears stable Long history of abnormal gait due to contractures his left lower extremity and upper extremity from his brain aneurysm Plan: Acute left hip femoral neck fracture Chronic lower extremity changes with 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 With his hip contracture it does complicate the matter of surgical intervention. I think that he would require surgery for hip hemiarthroplasty versus possibly a total hip arthroplasty. This is somewhat involved given his contracture. He does normally ambulate though he does have an altered gait and surgery may give him the possibility of returning to his preinjury status with his mobilization. I think that without surgery it is likely that he would not be able to ambulate again. I discussed this with him. I will discuss case further with our total joint specialist asking to review the films and the case as this may need higher level of treatment given his also medical issues and hip flexion contracture. Medicine we'll continue to manage him as well. He will continue workup for me dical clearance for surgery.
[2020-07-31] MEDS ORDERED: HYDROcodone/APAP 5-325MG 1 EACH TAB PO PRN (21:51)
[2020-07-31] MEDS: PRAVASTATIN SODIUM 20 MG TAB PO SCH (22:09)
[2020-07-31] MEDS: SODIUM CHLORIDE 0.9% 1,000 ML IV SCH (22:09)
[2020-08-01] MEDS: HYDROmorphone 0.5 MG/0.5 ML SYRINGE IVP PRN ×7 (02:05→21:17)
[2020-08-01] MEDS: carvediloL 12.5 MG TAB PO SCH ×2 (08:20→17:06)
--- NOTE | 2020-08-01 08:48 | P.PN ---
Subjective Progress Note Date: 08/01/20 Principal diagnosis: Left hip fracture This is a 69-year-old male admitted yesterday with a left femoral neck fracture. The patient has history of brain aneurysm years ago which has subsequently left him with left-sided contractures. We're planning hemiarthroplasty of the left hip when cleared medically. Her tentatively scheduled for tomorrow with Dr. Emmanuel Desai. The patient has no new complaints or concerns today. Vital signs are stable. Objective - Vital Signs Vital signs: Vital Signs Temp 98.1 F 08/01/20 07:00 Pulse 79 08/01/20 07:00 Resp 19 08/01/20 07:00 BP 169/73 08/01/20 07:00 Pulse Ox 94 L 08/01/20 07:00 Intake & Output 07/31/20 08/01/20 08/01/20 18:59 06:59 18:59 Output Total 450 Balance -450 Weight 54.431 kg 54.431 kg Output: Urine 450 Other: Voiding Method Indwelling Catheter - Exam This is a pleasant 69-year-old male in no acute distress. He is alert and oriented. He is hearing impaired. He is lying in bed with mild discomfort. Contracture noted to the left leg. He has full foot and ankle motion without difficulty. Neurovascular status to the lower extremities grossly intact. - Labs CBC & Chem 7: 07/31/20 17:03 07/31/20 17:03 Labs: Abnormal Lab Results - Last 24 Hours (Table) 07/31/20 07/31/20 Range/Units 17:03 17:03 WBC 11.6 H (3.8-10.6) k/uL RBC 3.11 L (4.30-5.90) m/uL Hgb 10.4 L (13.0-17.5) gm/dL Hct 31.9 L (39.0-53.0) % MCV 102.6 H (80.0-100.0) fL Neutrophils # 10.0 H (1.3-7.7) k/uL Lymphocytes # 0.7 L (1.0-4.8) k/uL Potassium 5.4 H (3.5-5.1) mmol/L Chloride 108 H (98-107) mmol/L BUN 28 H (9-20) mg/dL Assessment and Plan (1) Joint contracture of left lower leg Current Visit: Yes Status: Acute Code(s): M24.562 - CONTRACTURE, LEFT KNEE SNOMED Code(s): 805814647 (2) Fall Current Visit: Yes Status: Acute Code(s): W19.XXXA - UNSPECIFIED FALL, INITIAL ENCOUNTER SNOMED Code(s): 4120643 Plan: The clinical findings are discussed the patient. We're planning surgery with Dr. Emmanuel Desai tomorrow for hemiarthroplasty of the left hip.
[2020-08-01 13:38] VITALS: BMI 17.7
--- NOTE | 2020-08-01 14:10 | XR ---
EXAMINATION TYPE: XR chest 1V portable DATE OF EXAM: 08/01/2020 COMPARISON: 08/22/2019 HISTORY: Preop. Pneumonia. TECHNIQUE: FINDINGS: There is coarsening of the pulmonary interstitial markings. There is no heart failure. Thor acic aorta is atheromatous. Bony thorax is intact. There is no sign of pleural effusion. Heart size i s normal. IMPRESSION: Mild pulmonary fibrosis. There is almost complete clearing of the infiltrate left lower l obe compared to old exam.
[2020-08-01 14:28] LABS: HCT 31.1 % (39.0-53.0); Hypochromasia Slight; MCH 33.6 pg (25.0-35.0); MCHC 32.2 g/dL (31.0-37.0); MCV 104.3 fL (80.0-100.0); Macrocytosis Slight; Mean Platelet Volume 7.8; Platelet Count 190 k/uL (150-450); RBC 2.98 m/uL (4.30-5.90); RDW 13.9 % (11.5-15.5); WBC 8.2 k/uL (3.8-10.6)
[2020-08-01 15:14] VITALS: RESP 16
[2020-08-01] MEDS ORDERED: NON FORMULARY DRUG (Carvedilol [Coreg] 25 MG Tablet) PO SCH (21:00)
[2020-08-01] MEDS: methocarbamoL 750 MG TAB PO SCH (21:13)
[2020-08-01] MEDS: PRAVASTATIN SODIUM 20 MG TAB PO SCH (21:13)
[2020-08-01] MEDS: carBAMazepine 100 MG TAB.ER.12H PO SCH (21:14)
[2020-08-01] MEDS: SODIUM CHLORIDE 0.9% 1,000 ML IV SCH (21:20)
--- NOTE | 2020-08-01 22:20 | CONS ---
CONSULTATION I am covering for Dr. Martinez. REASON FOR CONSULTATION: Advice regarding hypertension, other medical issues, requested by Dr. Cisneros. HISTORY OF PRESENT ILLNESS: This 69-year-old gentleman with a past medical history of hypertension, hyperlipidemia, history of brain aneurysm in 1979 with residual left-sided weakness and contractures being followed by Dr. Martinez in the outpatient setting, is able to walk with a walker, but the patient recently fell, losing the balance and the patient was complaining of left hip pain. The patient was taken to [facility] and the CT of the hip and x-rays revealed left femoral neck fracture. The patient was admitted to the hospital for further evaluation and treatment. Dr. Desai is planning surgery. There is no history any fever, rigors or chills. No history of headache, loss of consciousness or seizures. No chest pain, palpitations, shortness of breath. PAST MEDICAL HISTORY: History of hypertension, hyperlipidemia, history of brain aneurysm, left-sided weakness. MEDICATIONS: 2. Pravachol 20 mg q.h.s. 3. Protonix 40 mg daily. 4. Robaxin 750 mg p.o. b.i.d. 5. Tegretol 100 mg p.o. b.i.d. 6. Coreg 25 mg p.o. b.i.d. ALLERGIES: None. FAMILY HISTORY: No history of heart disease or strokes in the family. SOCIAL HISTORY: Previous history of smoking. No history of current smoking. REVIEW OF SYSTEMS: ENT: No diminished vision. No diminished hearing. CARDIOVASCULAR: No angina or palpitations. RESPIRATORY SYSTEM: As mentioned earlier. GI no nausea or vomiting. no dysuria. Nervous system as mentioned earlier. Allergies/Immunology: No asthma or hayfever. MUSCULOSKELETAL as mentioned earlier. HEMATOLOGY/ONCOLOGY: No history of anemia. ENDOCRINE: No history of diabetes or hypothyroidism. CONSTITUTIONAL: As mentioned earlier. DERMATOLOGY: Negative. RHEUMATOLOGY: Negative. PSYCHIATRY: As mentioned earlier. PHYSICAL EXAMINATION: Alert and oriented times three. Pulse 75, blood pressure 140/70, respiration 16, temperature 98.2, pulse ox 98% on room air. HEENT: Conjunctivae normal. Oral mucosa moist. NECK is no jugular venous distention. No carotid bruit. No lymph node enlargement. CARDIOVASCULAR System: S1, S2 muffled. RESPIRATORY: Breath sounds diminished in the bases. No rhonchi. No crackles. ABDOMEN: Soft, nontender. LEGS: Status post left femoral neck fracture NERVOUS SYSTEM: Higher functions as mentioned. Moves on the right side, left side contractures present in the upper limbs. LYMPHATICS: No lymph nodes palpable in the neck, axillae or groin. SKIN: No ulcer, no rashes, no bleeding. JOINTS: No active deforming arthropathy. LABS: WBC 11.2, hemoglobin 10.4, sodium 130, potassium 5.5. ASSESSMENT: 1. Status post fall and left femoral neck fracture. 2. Increased WBC. 3. Anemia, macrocytic. 4. Hyperkalemia mild. 5. Hypertension. 6. Hyperlipidemia. 7. History of brain aneurysm in 1981. 8. Residual left-sided weakness and gait dysfunction. 9. History of spinal stenosis surgery. 10.History of nicotine dependence. 11.FULL CODE. RECOMMENDATIONS AND DISCUSSION: In this 69-year-old gentleman who presented with multiple complex medical issues, at this time, I recommend to continue the current medications, symptomatic treatment. Otherwise, resume the home medications. The chest x-ray was reviewed and showed mild pulmonary fibrosis, but however the patient is stable at this time. The patient will be cleared for surgery. We will follow the patient closely with you. Recommend DVT prophylaxis, incentive spirometry, and proton pump inhibitors as prophylaxis. Otherwise, Dr. Martinez will follow the patient in the morning. Thank you Dr. Cisneros, for letting us participate in the care of this patient. MMODL / IJN: [id number] / MTDD
[2020-08-02] MEDS: HYDROmorphone 0.5 MG/0.5 ML SYRINGE IVP PRN ×4 (00:49→11:41)
[2020-08-02] MEDS: methocarbamoL 750 MG TAB PO SCH (05:00)
[2020-08-02 06:05] LABS: HCT 31.9 % (39.0-53.0); HGB 10.4 gm/dL (13.0-17.5); MCH 33.4 pg (25.0-35.0); MCHC 32.5 g/dL (31.0-37.0); MCV 102.9 fL (80.0-100.0); Macrocytosis Slight; Mean Platelet Volume 7.8; Platelet Count 202 k/uL (150-450); RDW 13.8 % (11.5-15.5); WBC 8.9 k/uL (3.8-10.6)
[2020-08-02 06:37] LABS: Appearance,Urine Clear (Clear); Bilirubin,Urine Negative (Negative); Blood,Urine Moderate (Negative); Color,Urine Yellow; Glucose,Urine (UA) Negative (Negative); Ketones,Urine Negative (Negative); Leukocyte Esterase,Urine Moderate (Negative); Mucus,Urine Rare /hpf; Nitrite,Urine Negative (Negative); Protein,Urine 1+ (Negative); RBC,Urine 137 /hpf (0-5); Urobilinogen,Urine <2.0 mg/dL (<2.0); WBC,Urine 29 /hpf (0-5)
[2020-08-02] MEDS: carBAMazepine 100 MG TAB.ER.12H PO SCH (07:01)
[2020-08-02 07:52] VITALS: BP 133/68; PULSE 79; TEMP 98
[2020-08-02] MEDS: carvediloL 12.5 MG TAB PO SCH (08:33)
--- NOTE | 2020-08-02 08:38 | P.PN ---
Progress Note - Text Progress Note Date: 08/02/20 Had been in discussion with the house staff as well as with our total joint specialist. The patient has somewhat of a complex issue in that his left femoral neck fracture is combined with his history of significant left hip flexion contracture due to his history of brain aneurysm. Despite his contractures the patient is still ambulatory and apparently somewhat mobile as he was doing yard work when he fell. With the flexion contracture in the case poses a higher degree of difficulty and the seizure would be somewhat complex particularly considering possible, location issues. As such I think the patient would be best suited with a tertiary facility for additional higher level of care. I discussed this with Dr. Dale at [facility] and they are agreeable to accept the patient for transfer to their facility for further definitive care. They may be admitted to their service or to medicine for continued management with consultation. They are working for transfer today. The patient remains nothing by mouth for now until further decision as per their service. I discussed this with hospice case manager as well.
[2020-08-02] MEDS ORDERED: PANTOPRAZOLE 40 MG TABLET PO SCH (09:00)
[2020-08-02 09:30] LABS: African American GFR (CKD) 99.9 (60.0-200.0); Anion Gap 7.1 mmol/L (4.00-12.00); BUN/Creat Ratio 26.67 Ratio (12.00-20.00); Calcium 8.8 mg/dL (8.7-10.3); Carbon Dioxide 28.9 mmol/L (21.6-31.8); Non-African American GFR(CKD) 86.2 (60.0-200.0); Potassium 4.1 mmol/L (3.5-5.5)
--- NOTE | 2020-08-02 12:16 | P.DS ---
Providers Date of admission: 07/31/20 18:31 Attending physician: Marvin Cisneros Consults: 07/31/20 21:51 Consult Physician Routine Consulting Provider: Rohan Martinez Reason/Comments: Medical management and clearance Do you want consulting provider notified?: Yes Primary care physician: Rohan Martinez [facility] Course: Patient is a 69-year-old male who sustained a fall at home and had subsequent left hip pain. Patient has long history of left sided contractures in his left hip and left upper extremity due to prior brain aneurysm back in the 80s. Patient also has history of spinal stenosis and has had prior surgery at his lumbar spine. Nonetheless patient is able to mobilize quite a bit and he uses his tractor does work in his yard and fell while pulling wagon fold logs that he had cut. The patient typically ambulate with some assistance using a cane over the past 4 months. Patient denied any other injury but had significant pain in his left hip and is unable to mobilize due to this. The patient had evaluation was found have a left hip femoral neck fracture with impaction and some varus angulation. Patient also found have significant flexion contracture of the left hip and is difficult to fully evaluate due to his pain and prior chronic issues with flexion contracture. With these issues this made the femoral neck fracture a bit more complicated. I discussed the case with our total joint specialist. With the patient's contractures and possible need for more complex surgery we felt that he may be in his best interest to transfer to a tertiary facility. We made arrangements with [facility] and discuss case with the orthopedic service there. They understand the nature the case and made arrangements to accept the patient for transfer and for further definitive treatment for his left femoral neck fracture. There are arrangements being made for transfer today. They will continue follow up with their service. Patient Condition at Discharge: Undetermined Plan - Discharge Summary Discharge Rx Participant: No New Discharge Prescriptions: No Action Pravastatin Sodium [Pravachol] 20 mg PO HS Methocarbamol [Robaxin-750] 750 mg PO TID@0500,1300,2100 Pantoprazole Sodium 40 mg PO DAILY carBAMazepine [TEGretol XR] 100 mg PO BID Carvedilol [Coreg] 25 mg PO BID NIFEdipine [Adalat cc] 60 mg PO BID Discharge Medication List Pravastatin Sodium [Pravachol] 20 mg PO HS 09/07/16 [History] Methocarbamol [Robaxin-750] 750 mg PO TID@0500,1300,2100 08/07/19 [History] Carvedilol [Coreg] 25 mg PO BID 07/31/20 [History] NIFEdipine [Adalat cc] 60 mg PO BID 07/31/20 [History] Pantoprazole Sodium 40 mg PO DAILY 07/31/20 [History] carBAMazepine [TEGretol XR] 100 mg PO BID 07/31/20 [History] Follow up Appointment(s)/Referral(s): Rohan Martinez DO [Primary Care Provider] - 1-2 days Activity/Diet/Wound Care/Special Instructions: Continue Bedrest. continue NPO untiol plan dtermined by accepting facility. Discharge Disposition: OTHER INSTITUTION NOT DEFINED
--- NOTE | 2020-08-02 14:53 | PN ---
PROGRESS NOTE DATE OF SERVICE: 08/02/2020 HISTORY OF PRESENT ILLNESS: This 69-year-old gentleman who was admitted with a fall and femoral fracture had significant contractures. Orthopedic Surgery saw the patient. The patient has seen Dr. Martinez in the outpatient setting. Orthopedic surgery has recommended possibly referral to [facility] for further evaluation and treatment. No chest pain. No palpitations. No fever. PHYSICAL EXAMINATION: Pulse 79, blood pressure 103/60, respirations 16, temperature 98. Pulse ox 92 percent. CHEST: Clear. CARDIOVASCULAR: S1, S2. ABDOMEN: Soft. NERVOUS SYSTEM: Contractures, left hip fracture. LABS: WBC 8.9, hemoglobin 10.4. UA showed some WBCs and more RBCs. ASSESSMENT: 1. Status post fall and left femoral neck fracture. 2. Increased WBC. 3. Anemia, normocytic. 4. Hyperkalemia, mild. 5. Hypertension. 6. Hyperlipidemia. 7. History of brain aneurysm in 1981. 8. Severe left-sided weakness with gait dysfunction and contractures. 9. History of spinal stenosis surgery. 10.History of nicotine dependence. 11.FULL CODE. RECOMMENDATIONS AND DISCUSSION: Recommend to continue current medications, management and symptomatic treatment. Otherwise UA shows possibly some hematuria. Recommend outpatient follow up. Otherwise, the patient being transferred to [facility] for further evaluation and treatment. Further recommendations to follow. MMODL / IJN: [id number] /
== END 2020-08-02 12:22 | disposition short-term general hospital (02) | DRG 536 ==
LOC: EC 15:48 → 4SSUR 18:31
PROVIDERS: ADMIT Orthopaedic Surgery Orthopaedic Surgery of the Spine; ATTEND Orthopaedic Surgery Orthopaedic Surgery of the Spine
DX: S72.002A Fracture of unspecified part of neck of left femur, initial encounter for closed fracture (principal); I69.154 Hemiplegia and hemiparesis following nontraumatic intracerebral hemorrhage affecting left non-dominant side; D53.9 Nutritional anemia, unspecified; E78.5 Hyperlipidemia, unspecified; E87.5 Hyperkalemia; H91.90 Unspecified hearing loss, unspecified ear; I10 Essential (primary) hypertension; M24.552 Contracture, left hip; M24.562 Contracture, left knee; R26.9 Unspecified abnormalities of gait and mobility; R26.2 Difficulty in walking, not elsewhere classified; D72.829 Elevated white blood cell count, unspecified; Z87.891 Personal history of nicotine dependence; Z79.899 Other long term (current) drug therapy; Z98.1 Arthrodesis status; Z98.890 Other specified postprocedural states; Z87.39 Personal history of other diseases of the musculoskeletal system and connective tissue; W18.30XA Fall on same level, unspecified, initial encounter; Y92.007 Garden or yard of unspecified non-institutional (private) residence as the place of occurrence of the external cause
CPT/HCPCS: 36415; 71045; 73502; 80048; 80053; 81001; 85025; 85027; 96374; 96376; 99285

== ENCOUNTER → 2020-12-11 | Outpatient (CLI) | payer MEDICARE, OTHER ==
--- NOTE | 2020-12-11 11:38 | CT ---
EXAMINATION TYPE: CT angio head DATE OF EXAM: 12/11/2020 11:17 AM COMPARISON: CT brain July 20, 2019 HISTORY: Dizziness and giddiness CT DLP: 2118.0 mGycm Automated exposure control for dose reduction was used. TECHNIQUE: Performed without and with IV Contrast, patient injected with 100 mL of Isovue 370. 3D reconstructed images are created on an independent workstation and reviewed. Noncontrast CT brain images performed first.. FINDINGS: There is persistent right sided craniotomy defect. There is artifact coils in the periphery of the ri ght brain along with artifact from embolization coils right suprasellar region redemonstrated. No acu te intracranial hemorrhage or midline shift. Significant right-sided encephalomalacia again seen. The re is involvement of right frontal temporal and parietal lobes. No new hydrocephalus. Background mild to moderate diffuse ventricular and sulcal prominence and mild low-attenuation in the periventricula r and deep white matter. Sclerocalcific age right globe. Visualized sinuses clear. There is codominant vertebrobasilar system. Vertebral arteries patent basilar junction. Artifact from aneurysm clips seen at the distal basilar artery making evaluation at this level suboptimal, patent bilateral posterior cerebral arteries. Hypoplastic bilateral posterior communicating arteries. No new aneurysm clearly identified. Anterior circulation shows fenestrated anterior communicating artery. T here is aneurysmal prominence at the right MCA trifurcation image 8 series 11. This measures 3.5 mm o n the raw data image 82. There is confirmation of tiny aneurysm seen best image 79 inferior aspect of this. IMPRESSION: Successful treatment of basilar tip aneurysm. There is 3.5 mm aneurysm at the right MCA t rifurcation noted. Noncontrast CT findings unchanged from most recent CT brain study.
--- NOTE | 2020-12-11 12:03 | CT ---
EXAMINATION TYPE: CT lumbar spine wo con DATE OF EXAM: 12/11/2020 10:57 AM COMPARISON: CT lumbar spine June 15, 2011. CT abdomen and pelvis August 13, 2019 HISTORY: Low back pain CT DLP: 999.4 mGycm Automated exposure control for dose reduction was used. Unenhanced CT of the lumbar spine was performed. Bone and soft tissue window settings are submitted as well as coronal and sagittal reconstructions. There are 5 lumbar type vertebra redemonstrated. Redemonstration of posterior interpedicular rods and screws transfixing L3-S1 levels bilaterally. Redemonstration of mild to moderate height loss involvi ng the L1 vertebra. There is persistent and more prominent moderate spurring and disc space narrowing at L1-L2 level. Vacuum disc phenomenon L2-L3 level redemonstrated. Persistent moderate disc space na rrowing and vacuum disc phenomenon L5-S1 level. Axial images at L1-L2 level demonstrate new posterior spurring effacing anterior thecal sac on sagitt al image 38 and axial image 34 along with moderate disc bulging. Causing [id number] bilateral n eural foraminal narrowing. Axial images at L2-L3 level redemonstrate mild to moderate facet degenerative changes bilaterally and mild to moderate broad disc bulge effacing anterior thecal sac with mild to moderate left greater th an right bilateral neural foraminal narrowing. Axial images at L3-S1 levels degraded by artifact from metallic hardware. Facet arthropathy is presen t bilaterally. Screw position stable paraspinal muscle bulk maintained. Mild calcified plaque of the aorta with ectasia distally redemonstrated. IMPRESSION: Postsurgical change L3-S1 level redemonstrated. Stable and satisfactory alignment noted. Increasing focal degenerative change L1-L2 level as detailed above from most recent CT 2018.
== END ==
LOC: RADCTMAIN 09:14
PROVIDERS: ATTEND Psychiatry & Neurology Neurology
DX: I67.1 Cerebral aneurysm, nonruptured (principal); M47.816 Spondylosis without myelopathy or radiculopathy, lumbar region; M51.26 Other intervertebral disc displacement, lumbar region; M99.73 Connective tissue and disc stenosis of intervertebral foramina of lumbar region
CPT/HCPCS: 82565; 84520; 72131; 70496; 36415; Q9967

== ENCOUNTER → 2021-07-30 | Outpatient (CLI) | payer MEDICARE, OTHER ==
--- NOTE | 2021-07-30 15:01 | CT ---
EXAMINATION TYPE: CT head without contrast CT angio head and neck DATE OF EXAM: 07/30/2021 COMPARISON: CT brain 07/20/2019 and CTA head 12/11/2020 HISTORY: 70-year-old male vertigo. History of resected lung cancer. Weight loss and progressive physi peewee disability. I72.9, I63.9,R42 TECHNIQUE: CT of the brain without contrast. Coronal and sagittal reconstructions performed. Subseque nt scanning of the head and neck with IV Contrast, patient injected with 65 mL of Isovue 370. Coronal /sagittal MIP reconstructions performed. 3-D reconstructions generated on a dedicated independent wor kstation. CT DLP: 1355.1 mGycm Automated exposure control for dose reduction was used. FINDINGS: CT HEAD WITHOUT CONTRAST: Large craniotomy flap along the right lateral convexity. Underlying extensive encephalomalacia within the frontoparietotemporal lobes. Slightly prominent CSF space measuring 5 mm here, axial image 33. No evidence for acute intracranial hemorrhage, acute ischemic change, mass, mass effect, or midline s hift. Clips are present in the prepontine cistern just behind the sella. Rightward nasal septal deviation. Orbits and globes are intact. Mastoid air cells are well pneumatize d. CTA HEAD: Vertebral arteries are codominant. Both vertebral and basilar arteries are patent. Aneurysm clipping at the top of the basilar artery. Beam Lyle artifact from the clips obscures the origin of the P1 segment left posterior cerebral artery. Otherwise, the posterior cerebral arteries are patent. Nonopacification of the right internal carotid artery. There is reconstitution at the level of the ca rotid terminus likely from collateral flow from the anterior communicating artery. Redemonstrated 4 mm saccular aneurysm at the right MCA trifurcation. Relatively more diminutive flow throughout the right anterior circulation but otherwise, the anterior circulation remains patent. Dural venous sinuses are patent. CTA NECK: Ectatic upper descending thoracic aorta 3.1 cm. Conventional arch vessel branching anatomy. Mild atherosclerotic narrowing at the origin of the right vertebral artery. Otherwise, the vertebral arteries are codominant and patent throughout the course. There is occlusion at the level of the right carotid bulb. The right common carotid artery is patent. The left common carotid artery is patent. Mild atherosclerotic change at the left carotid bulb causin g mild, less than 30% proximal ICA stenosis by NASCET criteria. IMPRESSION: CT BRAIN: 1. LARGE RIGHT LATERAL CRANIOTOMY FLAP. EXTENSIVE UNDERLYING ENCEPHALOMALACIA REDEMONSTRATED. SOME UN DERLYING CHRONIC EXTRA-AXIAL FLUID HERE MEASURING 5 MM THICK SHOWS CSF DENSITY. 2. NO ACUTE INTRACRANIAL ABNORMALITY SEEN. CTA HEAD: 3. THE INTRACRANIAL RIGHT INTERNAL CAROTID ARTERY IS OUT. THERE IS RECONSTITUTION AT THE RIGHT CAROTI D TERMINUS LIKELY FROM RETROGRADE FLOW FROM THE ANTERIOR COMMUNICATING ARTERY. 4. PREVIOUS ANEURYSM CLIPPING AT THE DISTAL BASILAR ARTERY. NO RECURRENT ANEURYSM IS SEEN HERE. 5. STABLE 4 MM SACCULAR ANEURYSM AT THE RIGHT MCA TRIFURCATION. CTA NECK: 6. RIGHT ICA OCCLUSION AT THE LEVEL OF THE CAROTID BULB. 7. MILD, LESS THAN 30% PROXIMAL LEFT ICA STENOSIS.
== END | disposition home or self-care (01) ==
LOC: RADCTMAIN 10:16
PROVIDERS: ATTEND Psychiatry & Neurology Neurology
DX: I67.1 Cerebral aneurysm, nonruptured (principal); G93.89 Other specified disorders of brain; I65.23 Occlusion and stenosis of bilateral carotid arteries; Z85.118 Personal history of other malignant neoplasm of bronchus and lung
CPT/HCPCS: 82565; 84520; 70496; 70498; 36415; Q9967

== ENCOUNTER → 2022-09-09 | Outpatient (CLI) | payer MEDICARE, OTHER ==
--- NOTE | 2022-09-09 14:22 | CT ---
CTA head. HISTORY: History of lung cancer resection and progressive physical ability. COMPARISON: 07/30/2021. TECHNIQUE: CTA of the head was performed with nonionic IV contrast and according to the CTA protocol. MIPS images were obtained. 3-D processing was also performed. The graft findings: As seen on the prior study, there is marked encephalomalacia involving the right cerebral hemisphere . There is a large craniotomy defect overlying the area of encephalomalacia in the right lateral skul l.. There are surgical clips in the intrapeduncular cistern consistent with the history of prior basilar aneurysm clipping. There is occlusion of the right internal carotid artery from its origin in the neck distally. There i s diminished flow within the right MCA branches which fill via an intact [place] of Angulo and anterio r communicating artery. A small 4 mm aneurysm of the right MCA bifurcation which was identified previ ously is again seen unchanged. IMPRESSION: No significant interval change compared to the prior study. 2. Small right MCA aneurysm which is stable. 3. Occluded right internal carotid artery. 4. Diminished flow within the right MCA via the anterior communicating artery and an intact [place] of Angulo. 5. 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 6. Marked encephalomalacia of the right cerebral hemisphere, stable.
== END | disposition home or self-care (01) ==
LOC: RADCTMAIN 10:11
PROVIDERS: ATTEND Psychiatry & Neurology Neurology
DX: Z01.812 Encounter for preprocedural laboratory examination (principal); I67.1 Cerebral aneurysm, nonruptured; I63.9 Cerebral infarction, unspecified; I65.21 Occlusion and stenosis of right carotid artery; G93.89 Other specified disorders of brain
CPT/HCPCS: 82565; 84520; 70496; 36415; Q9967

== ENCOUNTER → 2023-09-06 | Outpatient (CLI) | payer MEDICARE, OTHER ==
[2023-09-06 14:33] LABS: African American GFR (CKD) 88 (>60 ml/min/1.73 sqM); Blood Urea Nitrogen 33 mg/dL (9-20); Non-African American GFR(CKD) 76 (>60 ml/min/1.73 sqM)
--- NOTE | 2023-09-07 07:32 | CT ---
EXAMINATION TYPE: CT cervical spine wo con DATE OF EXAM: 09/06/2023 COMPARISON: None HISTORY: CERVICALGIA CT DLP: 330.10 mGycm CONTRAST: None CT of the cervical spine is performed in the axial plane at 2 mm thick sections. Reconstructed image s in the coronal, and sagittal plane are reviewed on the computer. No acute fractures are evident. Vertebral body alignment is normal. Loss of disc height C3-4 through C6-7. Complete loss of disc height is present C5-6. Posterior endpla te spurring is present C4, C5, C6. Anterior vertebral body spurring is present. Vertebral body heights are preserved. No spinal canal stenosis is evident Bilateral foraminal stenosis from uncovertebral joint is noted through the cervical spine. This inclu rebeka moderate bilateral foraminal stenosis C3-4, severe foraminal stenosis C4-5 on the right and moder ate to severe foraminal stenosis on the left. Moderate foraminal stenosis present C5-6 on the left Prior right parietal and temporal craniotomy changes are evident. IMPRESSION: 1. Degenerative disc changes with multilevel loss of disc height. 2. Foraminal stenosis due to uncovertebral joint hypertrophy discussed above. Correlate with radicula r symptoms.
--- NOTE | 2023-09-07 09:22 | CT ---
EXAMINATION TYPE: CT angio head neck DATE OF EXAM: 09/06/2023 HISTORY: HX OF CAROTID STENOSIS AND CEREBRAL ANEURYSMS WITH CLIP. COMPARISON: 07/30/2021 CT DLP: 1630.50 mGycm. Automated Exposure Control for Dose Reduction was Utilized. TECHNIQUE: CTA scan of the neck is performed without and with IV Contrast, patient injected with 65m l mL of Isovue 370, axial images are obtained, coronal and sagittal reformatted images are reviewed. Three-D reconstructed images are created on an independent workstation and reviewed. Source images a re reviewed. FINDINGS: Noncontrast imaging is performed through the brain. Old right parietal infarct is evident. Craniotomy changes are on the right. Aneurysm clip is in the skull base. Extra-axial effects on the right later al ventricle. There are some white matter changes within the right cerebral. Carotid/Vascular Structures: There is a common origin of the left common carotid artery and nondomina nt artery. Vertebral arteries are codominant. There is obstruction of the right internal carotid artery at its origin. External branches appear pat ent. There is some mild vascular calcification at the left carotid bifurcation without significant fl ow-limiting stenosis. . Left internal carotid artery and vertebral arteries are patent to the skull base. Cervical of Angulo: Vertebral basilar system appears normal. Posterior cerebral vasculature is unrema rkable. Left internal carotid artery bifurcates normally into A1 and M1 segments. A2 segments are nor mal. Previously described right middle cerebral artery branch aneurysm remains present and unchanged 0.4 cm in size. The anterior communicating artery is patent. Posterior communicating arteries are not identified. IMPRESSION: 1. Obstruction of the right internal carotid artery, unchanged from comparison. 2. 0.4 cm stable right middle cerebral artery branch aneurysm. 3. No acute changes from comparison NASCET criteria was used in interpretation of this exam?
== END | disposition home or self-care (01) ==
LOC: RADCTMAIN 13:37
PROVIDERS: ATTEND Psychiatry & Neurology Neurology
DX: M50.31 Other cervical disc degeneration, high cervical region (principal); M99.71 Connective tissue and disc stenosis of intervertebral foramina of cervical region; I72.9 Aneurysm of unspecified site; I63.9 Cerebral infarction, unspecified; I65.29 Occlusion and stenosis of unspecified carotid artery
CPT/HCPCS: 82565; 84520; 72125; 70496; 70498; 36415; Q9967

== ENCOUNTER 2023-10-18 11:06 | Emergency (ER) | payer MEDICARE, OTHER ==
[2023-10-18 11:28] VITALS: RESP 18; TEMP 97.3
--- NOTE | 2023-10-18 11:28 | ED ---
General Adult HPI - General Chief complaint: Extremity Injury, Lower Stated complaint: Fall Time Seen by Provider: 10/18/23 11:08 Source: patient, EMS Mode of arrival: EMS Limitations: no limitations - History of Present Illness Initial comments: Dictation was produced using [email or web address] dictation software. please excuse any grammatical, word or spelling errors. Chief Complaint: 73-year-old male past medical history of left-sided debility secondary brain aneurysm presents emergency Department with hip pain after fall History of Present Illness: Patient is 73-year-old male he was walking around in his barn yesterday he tripped and fell. Patient ambulates with a walker. He has supportive material to his left leg's in order to try to ambulate. Resume's along his left foot. Tripped over some equipment in his garage fell on his left side. Since that he's been having left-sided hip pain that radiates down to his left knee. Patient has history of left hip replacement. Did not hit his head. Did not lose any consciousness. He doesn't Regulation medications. He reports that the fall was unwitnessed. Patient's only complaint is left leg pain The ROS documented in this emergency department record has been reviewed and co nfirmed by me. Those systems with pertinent positive or negative responses have been documented in the HPI. All other systems are other negative and/or noncontributory. - Related Data Home Medications Medication Instructions Recorded Confirmed Pravastatin Sodium [Pravachol] 20 mg PO HS 09/07/16 07/31/20 methocarbamoL [Robaxin-750] 750 mg PO TID@0500,1300,2100 08/07/19 07/31/20 NIFEdipine [Adalat cc] 60 mg PO BID 07/31/20 07/31/20 Pantoprazole Sodium 40 mg PO DAILY 07/31/20 07/31/20 carBAMazepine [TEGretol XR] 100 mg PO BID 07/31/20 07/31/20 carvediloL [Coreg] 25 mg PO BID 07/31/20 07/31/20 Allergies Allergy/AdvReac Type Severity Reaction Status Date / Time No Known Allergies Allergy Verified 10/18/23 11:26 Review of Systems ROS Statement: Those systems with pertinent positive or pertinent negative responses have been documented in the HPI. ROS Other: All systems not noted in ROS Statement are negative. 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, history of contractures left hip and left upper extremity SPINAL STENOSIS, CVA with left sided weakness History of Any Multi-Drug Resistant Organisms: None Reported Past Surgical History: Back Surgery Additional Past Surgical History / Comment(s): BRAIN ANEURYSM REPAIR, Past Anesthesia/Blood Transfusion Reactions: No Reported Reaction Past Psychological History: No Psychological Hx Reported Smoking Status: Never smoker Past Alcohol Use History: None Reported Past Drug Use History: None Reported - Past Family History Mother Family Medical History: No Reported History General Exam - General Exam Comments Initial Comments: PHYSICAL EXAM: General Impression: Alert and oriented x3, not in acute distress HEENT: Normocephalic atraumatic, extra-ocular movements intact, pupils equal and reactive to light bilaterally, mucous membranes moist. Cardiovascular: Heart regular rate and rhythm Chest: Able to complete full sentences, no retractions, no tachypnea Abdomen: abdomen soft, non-tender, non-distended, no organomegaly Musculoskeletal: Pulses present and equal in all extremities, no peripheral edema Left lower extremity: Cachectic left leg with significantly decreased muscle tone and bulk, no gross left lower extremity abnormalities Motor: no focal deficits noted Neurological: CN II-XII grossly intact, no focal motor or sensory deficits noted Skin: Intact with no visualized rashes Psych: Normal affect and mood Limitations: no limitations Course Vital Signs 10/18/23 11:20 Temperature 97.3 F L Pulse Rate 55 L Respiratory 18 Rate Blood Pressure 144/75 O2 Sat by Pulse 99 Oximetry EKG Findings - EKG Comments: EKG Findings:: My EKG interpretation: Ventricular rate 63, sinus rhythm,. 145, QRS 86, QTC 400. No MT prolongation, no QTC prolongation, no ST or T-wave changes noted. EKG compared to 08/01/2020 showing no changes. Overall, this EKG is unremarkable Medical Decision Making - Medical Decision Making Was pt. sent in by a medical professional or institution (, PA, HEALTH CARE TECHNICIAN, urgent care, hospital, or penitentiary...) When possible be specific @ -No Did you speak to anyone other than the patient for history (EMS, parent, family, police, friend...)? What history was obtained from this source @ -No Did you review nursing and triage notes (agree or disagree)? Why? @ -I reviewed and agree with nursing and triage notes Were old charts reviewed (outside hosp., previous admission, EMS record, old EKG, old radiological studies, urgent care reports/EKG's, penitentiary records)? Report findings @ -No old charts were reviewed Differential Diagnosis (chest pain, altered mental status, abdominal pain women, abdominal pain men, vaginal bleeding, musculoskeletal, weakness, fever, dyspnea, syncope, headache, dizziness, GI bleed, back pain, seizure, CVA, palpatations, mental health)? @ -not applicable EKG interpreted by me (3pts min.). @ -see above X-rays interpreted by me (1pt min.). @ -Femur x-ray, and pelvis x-ray and chest x-ray shows no acute processes CT interpreted by me (1pt min.). @ -Scan of the brain and C-spine shows no acute processes U/S interpreted by me (1pt. min.). @ -None done What testing was considered but not performed or refused? (CT, X-rays, U/S, labs)? Why? @ -None What meds were considered but not given or refused? Why? @ -None Did you discuss the management of the patient with other professionals (professionals i.e. , PA, HEALTH CARE TECHNICIAN, lab, RT, psych nurse, social staff worker, literary agent, teacher, plain clothes police officer, sample case porter)? Give summary @ -No Was smoking cessation discussed for >3mins.? @ -No Was critical care preformed (if so, how long)? @ -No Were there social determinants of health that impacted care today? How? (Homelessness, low income, unemployed, alcoholism, drug addiction, transportation, low edu. Level, literacy, decrease access to med. care, senior living, rehab)? @ -No Was there de-escalation of care discussed even if they declined (Discuss DNR or withdrawal of care, Hospice)? DNR status @ -No What co-morbidities impacted this encounter? (DM, HTN, Smoking, COPD, CAD, Cancer, CVA, ARF, Chemo, Hep., AIDS, mental health diagnosis, sleep apnea, morbid obesity)? @ -None Was patient admitted / discharged? Hospital course, mention meds given and route, prescriptions, significant lab abnormalities, going to OR and other pertinent info. @ -73-year-old male presents to emergency department after mechanical fall. His chief complaint is left lower extremity pain. No gross deformities seen on physical exam. Vital signs stable. Imaging studies are negative for any acute or occult fractures. CT brain was ordered due to elderly individual that fell on an echo evaluation medications. CT is negative. Patient notified of these results. He is cleared for discharge clinical presentation consistent with left lower extremity contusion. Undiagnosed new problem with uncertain prognosis? @ -No Drug Therapy requiring intensive monitoring for toxicity (Heparin, Nitro, Insulin, Cardizem)? @ -No Were any procedures done? @ -No Diagnosis/symptom? Acute, or Chronic, or Acute on Chronic? Uncomplicated (without systemic symptoms) or Complicated (systemic symptoms)? @ -Left leg contusion Side effects of treatment? @ -No Exacerbation, Progression, or Severe Exacerbation? @ -No Poses a threat to life or bodily function? How? (Chest pain, USA, ND, pneumonia, PE, COPD, DKA, ARF, appy, cholecystitis, CVA, Diverticulitis, Homicidal, Suicid al, threat to staff... and all critical care pts) @ -No - Lab Data Result diagrams: 10/18/23 11:58 10/18/23 11:58 Lab Results 10/18/23 10/18/23 Range/Units 11:58 11:58 WBC 5.7 (3.8-10.6) k/uL RBC 3.55 L (4.30-5.90) m/uL Hgb 11.9 L (13.0-17.5) gm/dL Hct 35.2 L (39.0-53.0) % MCV 99.1 (80.0-100.0) fL MCH 33.5 (25.0-35.0) pg MCHC 33.8 (31.0-37.0) g/dL RDW 13.7 (11.5-15.5) % Plt Count 148 L (150-450) k/uL MPV 8.5 Neutrophils % 72 % Lymphocytes % 17 % Monocytes % 7 % Eosinophils % 2 % Basophils % 0 % Neutrophils # 4.1 (1.3-7.7) k/uL Lymphocytes # 0.9 L (1.0-4.8) k/uL Monocytes # 0.4 (0-1.0) k/uL Eosinophils # 0.1 (0-0.7) k/uL Basophils # 0.0 (0-0.2) k/uL Sodium 138 (137-145) mmol/L Potassium 4.8 (3.5-5.1) mmol/L Chloride 103 (98-107) mmol/L Carbon Dioxide 24 (22-30) mmol/L Anion Gap 11 mmol/L BUN 39 H (9-20) mg/dL Creatinine 1.43 H (0.66-1.25) mg/dL Est GFR (CKD-EPI)AfAm 56 (>60 ml/min/1.73 sqM) Est GFR (CKD-EPI)NonAf 48 (>60 ml/min/1.73 sqM) Glucose 101 H (74-99) mg/dL Calcium 8.8 (8.4-10.2) mg/dL Disposition Clinical Impression: Contusion of leg Disposition: HOME SELF-CARE Condition: Good Instructions (If sedation given, give patient instructions): Hip Contusion (ED) Is patient prescribed a controlled substance at d/c from ED?: No Referrals: Rohan Martinez DO [Primary Care Provider] - 1-2 days Time of Disposition: 13:14
[2023-10-18 12:05] LABS: Basophils % (A) 0 %; Eosinophils # (A) 0.1 k/uL (0-0.7); Eosinophils % (A) 2 %; HCT 35.2 % (39.0-53.0); HGB 11.9 gm/dL (13.0-17.5); Lymphocytes # (A) 0.9 k/uL (1.0-4.8); Lymphocytes % (A) 17 %; MCH 33.5 pg (25.0-35.0); MCHC 33.8 g/dL (31.0-37.0); MCV 99.1 fL (80.0-100.0); Mean Platelet Volume 8.5; Monocytes # (A) 0.4 k/uL (0-1.0); Monocytes % (A) 7 %; Neutrophils # (A) 4.1 k/uL (1.3-7.7); Neutrophils % (A) 72 %; Platelet Count 148 k/uL (150-450); RBC 3.55 m/uL (4.30-5.90); RDW 13.7 % (11.5-15.5); WBC 5.7 k/uL (3.8-10.6)
[2023-10-18 12:21] LABS: African American GFR (CKD) 56 (>60 ml/min/1.73 sqM); Anion Gap 11 mmol/L; Blood Urea Nitrogen 39 mg/dL (9-20); Calcium 8.8 mg/dL (8.4-10.2); Carbon Dioxide 24 mmol/L (22-30); Chloride 103 mmol/L (98-107); Glucose 101 mg/dL (74-99); Non-African American GFR(CKD) 48 (>60 ml/min/1.73 sqM); Potassium 4.8 mmol/L (3.5-5.1); Sodium 138 mmol/L (137-145)
--- NOTE | 2023-10-18 12:51 | CT ---
EXAMINATION TYPE: CT brain cspine wo con CT DLP: 1219.3 mGycm, Automated exposure control for dose reduction was used. DATE OF EXAM: 10/18/2023 12:16 PM COMPARISON: CT angiogram head and neck and CT cervical spine 09/06/2023 CLINICAL INDICATION:Male, 73 years old with history of fall; hx of recent falls. hx of strokes. TECHNIQUE: Brain: Multiple axial CT images of the brain were obtained without IV contrast. Cspine: Axial CT images from the skull base to the inferior aspect of T2 we obtained without intraven ous contrast. Coronal and sagittal reformatted images were also reviewed. FINDINGS: Brain: Extensive encephalomalacia with volume loss throughout the right cerebral hemisphere involving the fr ontal temporoparietal lobes primarily and occipital lobe to a lesser degree, consistent with chronic large infarct in the MCA territory. This appears more extensive than in 07/20/2019 but fairly similar to 09/06/2023. There is Wallerian degeneration in the right side of the brainstem. No evidence of acute intracranial hemorrhage, midline shift, or mass effect. There is no loss of bartholomew -white matter distinction to suggest acute territorial infarction. There is mild to moderate generali zed brain atrophy. Enlargement of the ventricles and sulci, likely related to brain volume loss. Basa l cisterns are patent. No evidence of extra-axial fluid collection. Cerebellum shows no acute abnorma lity. Redemonstration of clips along the anterior aspect of the brainstem and along the inner table of the skull in the right frontal region near the edge of the craniotomy flap consistent with prior aneurysm treatment. Artifact from these does limit evaluation of adjacent structures however. Changes along the right cranium from previous craniotomy and flap, similar to previous. No acute osse ous abnormality is seen. The visualized paranasal sinuses show no significant fluid accumulation. [place] air cells are clear. Mild/moderate nasal septal deviation towards the right anteriorly. Globes appear intact. There is caitie dence of prior ocular surgery. No intraorbital abnormality is seen. No acute soft tissue finding. MRI is more sensitive for detecting acute processes such as infarct, and may be considered if clinica lly warranted. Cervical spine: Fracture: None seen. Osseous structures, spinal canal/neural foramina: Generalized osteopenia. Moderate multilevel degener ative disk disease and facet arthrosis throughout the cervical spine. These result in moderate canal and neural foraminal stenoses C3-C4, C4-C5, mild/moderate stenoses C6-C7 and mild stenoses C7-T1. Vertebral alignment: No traumatic malalignment. There is mild degenerative retrolisthesis seen C3 on C4 and C4 on C5. Slight straightening of the normal cervical lordosis. Neck soft tissues: No acute abnormality.. Calcifications noted involving the cervical carotid arterie s mostly bifurcation regions. Other: Globular small filling defect in the upper trachea, likely mucous secretions. Included lung ap ices show no acute infiltrate or pneumothorax. Mild reticulonodular scarring. IMPRESSION: CT head: Stable appearance of the head, without evidence of an acute intracranial abnormality. CT cervical spine: 1. No evidence of cervical spine fracture or traumatic malalignment. 2. Moderate cervical spondylosis.
--- NOTE | 2023-10-18 12:55 | XR ---
EXAMINATION TYPE: XR chest 2V DATE OF EXAM: 10/18/2023 12:43 PM CLINICAL INDICATION:Male, 73 years old with history of fall; [facility] COMPARISON: None TECHNIQUE: XR chest 2V. Frontal PA and lateral views of the chest. FINDINGS: Lines/Tubes: None. Heart/mediastinum: Heart size is normal. Mediastinal silhouette is otherwise unremarkable. Pulmonary vascularity: Not increased, Lungs/Pleura: Prominent interstitial lung markings are seen scattered throughout the lungs with hyper inflation suggestive of COPD. No evidence of focal consolidation, pneumothorax or pleural effusion. N odular densities over the upper lungs on the frontal view appear represent degenerative changes of th e anterior rib ends. Musculoskeletal: No acute osseous abnormality demonstrated in the limits of the exam. Moderate degen erative changes of the spine and shoulders. Other findings: None. IMPRESSION: 1. No acute intrathoracic abnormality. 2. COPD changes.
--- NOTE | 2023-10-18 13:03 | XR ---
EXAMINATION TYPE: XR Hip LT and AP Pelvis DATE OF EXAM: 10/18/2023 12:43 PM CLINICAL INDICATION:Male, 73 years old with history of fall; [facility] COMPARISON: None. TECHNIQUE: 3 views left hip including frontal view pelvis, 4 views left femur. FINDINGS AND IMPRESSION: Generalized osteopenia. Moderate to severe right hip osteoarthropathy. Partially visualized degenerat trev changes and multilevel posterior fusion hardware in the lower lumbar spine. Pelvis appears to be intact. There is a left hip arthroplasty, likely bipolar, in place. No evidence of acute fracture, dislocatio n, or hardware complication. No perihardware lucency. Extrinsic structures/brace about the distal thi gh and knee region, limiting assessment however no definite femoral fracture is seen. There are degen erative changes of the knee. If the knee is of concern dedicated radiographs would be advised.
[2023-10-18 13:50] VITALS: BP 149/76; PULSE 70
== END 2023-10-18 13:43 | disposition home or self-care (01) ==
LOC: EC 11:06
DX: S80.12XA Contusion of left lower leg, initial encounter (principal); I10 Essential (primary) hypertension; E78.5 Hyperlipidemia, unspecified; J44.9 Chronic obstructive pulmonary disease, unspecified; W01.0XXA Fall on same level from slipping, tripping and stumbling without subsequent striking against object, initial encounter; Y93.01 Activity, walking, marching and hiking
CPT/HCPCS: 36415; 70450; 71046; 72125; 73502; 80048; 85025; 93005; 99285

== ENCOUNTER → 2024-08-22 | Outpatient (CLI) | payer MEDICARE ==
--- NOTE | 2024-08-22 10:36 | CT ---
EXAMINATION TYPE: CT lumbar spine wo con DATE OF EXAM: 08/22/2024 10:02 AM COMPARISON: 12/11/2020 CLINICAL INDICATION: Male, 73 years old with history of S32.009A fracture lumbar spine; PHH, lumbar f x TECHNIQUE: Unenhanced CT of the lumbar spine was performed. Bone and soft tissue window settings are submitted as well as coronal and sagittal reconstructions. CT DLP: [address] CTDI: mGy Automated exposure control for dose reduction was used. FINDINGS: The lumbar vertebral segments are normal in alignment. There is a stable mild superior endplate compr ession fracture of L1. There is a mild superior endplate compression fracture of T12 which was not pr esent on the prior study. There is no retropulsion of fracture fragments. There are postsurgical changes of laminectomy in the talar diffusion from L3 through S1. There is marked disc space narrowing, spondylolisthesis and vacuum phenomenon of the L1-2 disc. There is mild narrowing, and vacuum phenomena with spondylosis at the L2-3 level. There is moderate narrow ing and vacuum phenomena spondylosis at the L5-S1 level. There is mild narrowing of the L4-5 disc. Th e L3-4 disc is well preserved in height. Loss is no definite lumbar spinal There is mild bony neural foraminal stenosis at the L5-S1 level bilaterally. Technique is limited for disc herniation but no large disc herniations are seen. IMPRESSION: 1. Spinal fusion surgery from bowel 3 through S1. 2. Multilevel degenerative disc disease as described above, greatest at the L1-2 level. 3. Stable mild compression fracture of L1. 4. New mild to moderate compression fracture of T12 to the prior study. Age of the fracture is indete rminate. 5. No large disc herniations or spinal stenosis. 6. Mild neural foraminal stenosis at the L5-S1 level bilaterally. [facility], , 08/22/2024 10:34 AM
== END | disposition home or self-care (01) ==
LOC: RADCTMAIN 09:41
PROVIDERS: ATTEND Psychiatry & Neurology Neurology
DX: S32.009A Unspecified fracture of unspecified lumbar vertebra, initial encounter for closed fracture (principal); M51.369 Other intervertebral disc degeneration, lumbar region without mention of lumbar back pain or lower extremity pain; M99.73 Connective tissue and disc stenosis of intervertebral foramina of lumbar region; M47.816 Spondylosis without myelopathy or radiculopathy, lumbar region; M43.26 Fusion of spine, lumbar region
CPT/HCPCS: 72131